=== PATIENT | female | born 1980 | race Caucasian/White ===

== ENCOUNTER 2024-08-20 15:25 | Observation (INO) | payer BC, SELFPAY ==
[2024-08-20] VITALS (10 sets, daily range): BP systolic 136–164; BP diastolic 86–96; PULSE 80–95; TEMP 36.6–36.8; O2SAT 92–98; BMI 36.0; BMI 34.5
--- NOTE | 2024-08-20 15:36 | ECG_ITS ---
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 Measurements Intervals [place] Rate: 92 P: 90 MN: 118 QRS: 84 QRSD: 100 T: 205 QT: 326 QTc: 375 Interpretive Statements 1100 Sinus rhythm 2210 Short MN interval [address] depression, possible subendocardial injury Twave abnormality, possible ischemia 9150 abnormal ECG Compared to ECG 07/08/2018 16:39:50 Short MN interval now present Right-axis deviation no longer present ST (T wave) deviation still present Electronically Signed On 08-21-2024 5:24:31 EDT by JANELLE BUTLER M.D.
--- NOTE | 2024-08-20 15:37 | ED.GENADUL1 ---
HPI HPI - General Adult General Chief complaint: Syncope Stated complaint: SYNCOPE Time Seen by Provider: 08/20/24 15:29 Source: patient Mode of arrival: ambulance Limitations: no limitations History of Present Illness HPI narrative: 44-year-old female presents because of a near syncopal episode. She was at work when this happened and it occurred when she went to stand up. She felt dizzy and lightheaded and everything went fuzzy but she did not pass out completely. No injury. She has not been feeling well since this morning, she has had a mild cough and a sore throat. Her daughter has been ill but was evaluated and was told she had a viral illness. She does not complain of fever or diarrhea. Related Data Home Medications ?Medication ?Instructions ?Recorded ?Confirmed metformin 500 mg tablet 500 mg PO DAILY 08/20/24 08/20/24 thyroid (pork) 90 mg tablet 90 mg PO DAILY 08/20/24 08/20/24 Allergies Allergy/AdvReac Type Severity Reaction Status Date / Time No Known Drug Allergies Allergy Verified 08/20/24 15:27 Opioid HPI Opioid Management Most Recent Opioid Data: No Data to Display Review of Systems ROS Narrative A ten point review of systems is negative except as noted above. Exam Narrative Exam Narrative: Nurses note and vital signs reviewed and patient is not hypoxic. General: The patient appears in no apparent distress. Patient is resting comfortably on cart. Skin: Warm, dry, no pallor noted. There is no rash noted. Head: Normocephalic, atraumatic Eye: Normal conjunctiva, no drainage Ears, Nose, Mouth, and Throat: oral mucosa is moist. Nares patent. Cardiovascular: Regular Rate and Rhythm Respiratory: Patient is in no distress, no accessory muscle use, lungs are clear to auscultation, no wheezing, rales or rhonchi Back: non-tender GI: Soft and nontender Musculoskeletal: The patient has no evidence of calf tenderness, no pitting edema, symmetrical pulses noted bilaterally Neurological: A&O, normal speech Psychiatric: Cooperative Constitutional Vital Signs, click to edit/add: Last Vital Signs Temp 98.2 F 08/20/24 15:27 Pulse 88 08/20/24 16:21 Resp 18 08/20/24 16:21 BP 164/87 H 08/20/24 18:28 Pulse Ox 97 08/20/24 18:28 O2 Del Method Room Air 08/20/24 15:27 Course Vital Signs Vital signs: Vital Signs Temperature 98.2 F 08/20/24 15:27 Pulse Rate 92 H 08/20/24 15:27 Respiratory Rate 18 08/20/24 15:27 Blood Pressure 160/96 H 08/20/24 15:27 Pulse Oximetry 96 08/20/24 15:27 Oxygen Delivery Method Room Air 08/20/24 15:27 Temperature 98.2 F 08/20/24 15:27 Pulse Rate 88 08/20/24 16:21 Respiratory Rate 18 08/20/24 16:21 Blood Pressure 164/87 H 08/20/24 18:28 Pulse Oximetry 97 08/20/24 18:28 Oxygen Delivery Method Room Air 08/20/24 15:27 Medical Decision Making MDM Narrative Medical decision making narrative: The patient has normal renal function and an initial troponin of 91. Repeat 1 hour later was 92. Case discussed with Dr. Benito and CT of the chest is negative for pulmonary embolism. Dr. Benito recommends further troponins and cardiac echo tomorrow. Treatment diagnosis and disposition were discussed with the patient. Differential Diagnosis Differential Diagnosis: Near-syncope, syncope, cardiac dysrhythmia, pulmonary embolism Lab Data Lab results reviewed: Yes I reviewed the patient's lab results Labs: Lab Results 08/20/24 08/20/24 08/20/24 Range/Units 15:43 15:45 16:47 WBC 14.2 H (4.0-11.0) 10^3/uL RBC 3.74 L (4.20-5.40) 10^6/uL Hgb 9.1 L (12.0-16.0) g/dL Hct 29.9 L (36.0-48.0) % MCV 79.9 L (81.0-99.0) fL MCH 24.3 L (26.7-34.0) pg MCHC 30.4 (29.9-35.2) g/dL RDW 16.4 H (11.0-15.0) % Plt Count 292 (150-450) 10^3/uL MPV 9.8 (9.5-13.5) fL Neut % (Auto) 88.3 H (43.0-75.0) % Lymph % (Auto) 5.0 L (20.5-60.0) % [place] % (Auto) 5.8 (1.7-12.0) % Eos % (Auto) 0.4 L (0.9-7.0) % Baso % (Auto) 0.1 L (0.2-2.0) % Neut # (Auto) 12.5 H (1.4-6.5) 10^3/uL Lymph # (Auto) 0.7 L (1.2-3.8) 10^3/uL [place] # (Auto) 0.8 (0.3-0.8) 10^3/uL Eos # (Auto) 0.1 (0.0-0.7) 10^3/uL Baso # (Auto) 0.0 (0.0-0.1) 10^3/uL Abs Immat Gran (auto) 0.06 H (0.00-0.03) 10^3/uL Imm/Tot Granulo (auto) 0.4 (0.0-0.5) % Sodium 131 L (136-145) mmol/L Potassium 3.5 (3.5-5.1) mmol/L Chloride 98 (98-107) mmol/L Carbon Dioxide 24.9 (21.0-32.0) mmol/L Anion Gap 11.6 BUN 7.0 (7.0-18.0) mg/dL Creatinine 0.76 (0.55-1.02) mg/dL Est GFR ( Amer) >60 (>=60 mL/min/1.73m^2) Est GFR (Non-Af Amer) >60 (>=60 mL/min/1.73m^2) BUN/Creatinine Ratio 9.2 Glucose 139 H (74-106) mg/dL Calcium 8.7 (8.5-10.1) mg/dL Troponin I High Sens 91.8 H* 92.8 H* (4.0-51.3) pg/mL Influenza Type A Ag Negative Influenza Type B Ag Negative SARS-CoV-2 Ag (CV2AG) Negative (NEGATIVE) Streptococcus Screen Negative Imaging Data CT scan - chest: Radiologist's impression: CTA chest: No evidence of acute PE, no evidence of thoracic aortic aneurysm or dissection ECG Data Attestation: I personally reviewed and interpreted this ECG as follows: (EKG on my interpretation shows normal sinus rhythm with a rate of 118, minimal ST segment depression laterally) Discharge Plan Discharge Chief Complaint: Syncope Clinical Impression: Near syncope, Elevated troponin Patient Disposition: Admitted as Observation Time of Disposition Decision: 18:31 Condition: Good
[2024-08-20] MEDS: 0.9 % SODIUM CHLORIDE 1,000 ML 1000 ML IV (15:48)
[2024-08-20 15:51] LABS: Basophils Percent Auto 0.1 % (0.2-2.0); Eosinophils Absolute Auto 0.1 10^3/uL (0.0-0.7); Eosinophils Percent Auto 0.4 % (0.9-7.0); Hematocrit 29.9 % (36.0-48.0); Hemoglobin 9.1 g/dL (12.0-16.0); Immature Granulocytes Abs Auto 0.06 10^3/uL (0.00-0.03); Immature Granulocytes Pct Auto 0.4 % (0.0-0.5); Lymphocytes Absolute Auto 0.7 10^3/uL (1.2-3.8); Mean Corpuscular HGB Conc 30.4 g/dL (29.9-35.2); Mean Corpuscular Hemoglobin 24.3 pg (26.7-34.0); Mean Corpuscular Volume 79.9 fL (81.0-99.0); Mean Platelet Volume 9.8 fL (9.5-13.5); Monocytes Absolute Auto 0.8 10^3/uL (0.3-0.8); Monocytes Percent Auto 5.8 % (1.7-12.0); Neutrophils Absolute Auto 12.5 10^3/uL (1.4-6.5); Neutrophils Percent Auto 88.3 % (43.0-75.0); Platelet Count 292 10^3/uL (150-450); Red Blood Count 3.74 10^6/uL (4.20-5.40); Red Cell Distribution Width 16.4 % (11.0-15.0); White Blood Count 14.2 10^3/uL (4.0-11.0)
[2024-08-20 16:03] LABS: Influenza Virus A Antigen Negative; Influenza Virus B Antigen Negative; Internal Control Within Normal Limits; SARS-CoV-2 Ag NEGATIVE (NEGATIVE); Strep A Antigen Screen Negative
[2024-08-20 16:04] LABS: Anion Gap 11.6; BUN Creatinine Ratio 9.2; Calcium 8.7 mg/dL (8.5-10.1); Carbon Dioxide 24.9 mmol/L (21.0-32.0); Chloride 98 mmol/L (98-107); Estimated GFR (African America >60 (>=60 mL/min/1.73m^2); Estimated GFR (Non-African Ame >60 (>=60 mL/min/1.73m^2); Glucose 139 mg/dL (74-106); Potassium 3.5 mmol/L (3.5-5.1); Sodium 131 mmol/L (136-145)
[2024-08-20 16:17] LABS: Troponin I High Sensitivity 91.8 pg/mL (4.0-51.3)
[2024-08-20 17:31] LABS: Troponin I High Sensitivity 92.8 pg/mL (4.0-51.3)
--- NOTE | 2024-08-20 19:30 | ECG_ITS ---
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 Measurements Intervals [place] Rate: 85 P: 83 [place]: 104 QRS: 79 QRSD: 106 T: 120 QT: 356 QTc: 424 Interpretive Statements SINUS RHYTHM WITH SHORT [place] INTERVAL POSSIBLE RIGHT VENTRICULAR CONDUCTION DELAY [RSR (QR) IN V1/V2] SEPTAL MYOCARDIAL INFARCTION [40+ ms Q WAVE IN V1/V2], OF INDETERMINATE AGE ST DEVIATION AND MODERATE T-WAVE ABNORMALITY, CONSIDER ANTERIOR ISCHEMIA [-0.1+ mV T WAVE IN V3/V4] Compared to ECG 08/20/2024 15:31:24 Possible ischemia still present Electronically Signed On 08-21-2024 5:29:38 EDT by JANELLE BUTLER M.D.
[2024-08-20 20:09] LABS: Troponin I High Sensitivity 78.4 pg/mL (4.0-51.3)
[2024-08-20] MEDS: ENOXAPARIN SODIUM 40 MG/0.4 ML SYRINGE SUBQ (20:09)
[2024-08-21] VITALS (16 sets, daily range): BP systolic 114–164; BP diastolic 73–82; PULSE 74–99; TEMP 36.6–36.8; O2SAT 92–95
[2024-08-21 06:17] LABS: Basophils Percent Auto 0.3 % (0.2-2.0); Eosinophils Percent Auto 0.1 % (0.9-7.0); Hematocrit 30.7 % (36.0-48.0); Immature Granulocytes Abs Auto 0.04 10^3/uL (0.00-0.03); Immature Granulocytes Pct Auto 0.4 % (0.0-0.5); Lymphocytes Absolute Auto 1.5 10^3/uL (1.2-3.8); Lymphocytes Percent Auto 13.4 % (20.5-60.0); Mean Corpuscular HGB Conc 29.3 g/dL (29.9-35.2); Mean Corpuscular Hemoglobin 23.7 pg (26.7-34.0); Mean Platelet Volume 10.3 fL (9.5-13.5); Monocytes Absolute Auto 0.9 10^3/uL (0.3-0.8); Monocytes Percent Auto 8.3 % (1.7-12.0); Neutrophils Absolute Auto 8.7 10^3/uL (1.4-6.5); Neutrophils Percent Auto 77.5 % (43.0-75.0); Platelet Count 286 10^3/uL (150-450); Red Blood Count 3.79 10^6/uL (4.20-5.40); Red Cell Distribution Width 16.5 % (11.0-15.0); White Blood Count 11.2 10^3/uL (4.0-11.0)
[2024-08-21 06:44] LABS: Alanine Aminotransferase 14 U/L (14-59); Albumin Level 3.6 g/dL (3.4-5.0); Alkaline Phosphatase 96 U/L (46-116); Aspartate Amino Transferase 11 U/L (15-37); BUN Creatinine Ratio 9.2; Bilirubin Total 0.5 mg/dL (0.2-1.0); Calcium 8.4 mg/dL (8.5-10.1); Carbon Dioxide 27.3 mmol/L (21.0-32.0); Chloride 102 mmol/L (98-107); Estimated GFR (African America >60 (>=60 mL/min/1.73m^2); Estimated GFR (Non-African Ame >60 (>=60 mL/min/1.73m^2); Globulin 3.5 g/dL; Glucose 99 mg/dL (74-106); Magnesium 1.6 mg/dL (1.8-2.4); Potassium 3.3 mmol/L (3.5-5.1); Sodium 136 mmol/L (136-145); Total Protein 7.1 g/dL (6.4-8.2)
[2024-08-21 06:48] LABS: Troponin I High Sensitivity 77.6 pg/mL (4.0-51.3)
[2024-08-21 08:04] LABS: Glucometer 108 mg/dL (74-106)
--- NOTE | 2024-08-21 08:12 | CA_ITS ---
Patient Name: ADRY CALDERON MR#: [id number] : 1980 Exam Date: 08/21/2024 Ordering Doctor: ADRY VAZQUEZ . ECHOCARDIOGRAM REPORT PROCEDURE: CA ECHO DOPPLER COMPLETE INDICATIONS: presyncope, NSTEMI COMPARISON: None. DESCRIPTION: COMPLETE ECHOCARDIOGRAM Real-time transthoracic echocardiography with 2D, M-mode, spectral and color flow Doppler performed. QUALITY: Technically difficult study due to patients condition. LEFT VENTRICLE: Normal chamber size. Normal left ventricular wall thickness. Systolic function is normal. Segmental wall motion cannot be accurately assessed due to poor sound transmission. LV EF: Visual estimation of left ventricular ejection fraction is 55-60%. Normal left ventricular ejection fraction, (>55%). DIASTOLIC: ATRIAL SEPTUM: LEFT ATRIUM: Poorly visualized. RIGHT ATRIUM: Poorly visualized. RIGHT VENTRICLE: Normal chamber size. Normal systolic function. TRICUSPID VALVE: Not well visualized. no regurgitation. Unable to assess right-sided pressures due to lack of measurable tricuspid regurgitation. MITRAL VALVE: Normal mobility and thickness. No evidence of mitral valve stenosis. No mitral regurgitation. AORTIC VALVE: Not well visualized. No evidence of aortic valve stenosis. No aortic regurgitation. AORTIC ROOT: Normal diameter and appearance. PULMONIC VALVE: Not well visualized. No regurgitation. PERICARDIUM: No evidence of pericardial effusion. IVC: Within normal limits. PLEURA: CONCLUSION: 1. Technically difficult study due to poor sound transmission. 2. Normal left ventricular size and systolic function. LVEF is estimated at 55 to 60%. Segmental wall motion cannot be accurately assessed due to sound transmission. 3. Normal right ventricular size and systolic function. 4. No significant valvular dysfunction. 5. Unable to assess right-sided pressures due to lack of measurable tricuspid regurgitation. 6. No pericardial effusion. Adult Echocardiography Procedure Report Left Ventricle LVEDD (3.7 - 5.6 cm): 4.17 cm LVESD (2.2 - 4.0 cm): 2.72 cm LVIVS thickness (0.6 - 1.2 cm): 0.78 cm LVPW thickness (0.5 - 1.0 cm): 1.05 cm e': 0.12 m/s E - e': 5.37 LVOT Max Gradient: 1.96 mm[Hg] LVOT Area (cm2): 0.70 m/s Peak Velocity (LVOT): 0.70 m/s LVOT Diameter 2.22 cm Left Atrium Left Atrium Systolic Dimension: 2.49 cm Mitral Valve MV E to A Ratio: 1.50 Mitral Valve A-Wave Peak Velocity: 0.41 m/s Mitral Valve E-Wave Peak Velocity: 0.62 m/s Right Ventricle Aorta AO Root Diam: 3.28 cm Aortic Valve AoV Area (Peak Calvin): 3.20 cm2, 3.20 cm2 Peak Velocity(Antegrade Flow): 0.85 m/s Peak Gradient(Antegrade Flow): 2.89 mm[Hg] Tricuspid Valve Pulmonic Valve Mean Gradient: 1.42 mm[Hg] Mean Velocity: 0.54 m/s Peak Velocity: 1.00 m/s, 0.93 m/s Peak Gradient: 3.43 mm[Hg], 4.03 mm[Hg] Right Atrium Dictated by: Ronny Perez M.D. on 08/22/2024 at 18:20 Approved by: Ronny Perez M.D. on 08/22/2024 at 18:24
--- NOTE | 2024-08-21 08:18 | PM.HP ---
HPI H&P: HPI History of Present Illness Chief complaint: NEAR DYNCOPE ELEVATED TROP Narrative: Patient is a 44 y.o white female with past medical history of former smoker, Cerebral Palsy affecting right side of face and left hand, Hypothyroidism, Marlow Parkinson's White Syndrome, SVT with prior cardiac ablation about 12 years ago who presented to the ER last night after having a feeling like she was going to passing out at work. She felt dizzy when she went to stand up. She felt dizzy and lightheaded and everything went fuzzy but she did not pass out completely. No injury. She has not been feeling well since yesterday, she has had a mild cough and a sore throat, fever, bodyaches, sinus drainage, no chest pain, no shortness of breath. Her daughter has been ill but was evaluated and was told she had a viral illness. She does not complain of fever or diarrhea. Patient's Troponin was found to be elevated at 91, then 92. CTA of the chest was negative for PE. Covid and flu testing were negative. WBC's 14, hb 9.0, K 3.3, mag 1.6, Cr 0.65; BP was elevated 160's / 90's, 97% on room air, highest recorded heart rate was 99. ER doctor spoke with [facility] development representative who requested patient be admitted for further testing. troponin has trended 78 and 77. ProBNP 484. Hb 9.0 and patient just finished her menstrual cycle. She currently denies any chest pain. She seen a development representative at [facility] years ago when she had her ablation but nothing recent. Her mother had TN at the age of 40 with 1 stent. Patient has had no prior heart caths, no stress tests. Opioid HPI Opioid Management Most Recent Pain and Opioid Data: Last Pain Scale 0 08/21/24 11:28 08/21/24 Last Pain Assessment 08/21/24 12:05 Last MAR Pain Assessment 08/21/24 11:28 Last ORT Total Score 6 08/20/24 18:57 08/20/24 Last ORT Risk Category Moderate Risk 08/20/24 18:57 08/20/24 Ur Phencyclidine Scrn Negative (NEGATIVE) 08/21/24 09:05 08/21/24 Review of Systems ROS Narrative ROS: a complete review of systems were reviewed with patient and are positive as below or listed in History of Chief Complaint. General: no fever, chills, night sweats Head: no headache, trauma, visual changes, nausea or vomiting Skin: no reported rashes, itching or sores Eyes: no blurriness of vision Ears: no reported hearing loss, vertigo, earache, or tinnitus Throat: sore throat, hoarseness, swelling of neck Heart: no chest pain Lungs: no shortness of breath but mild cough GI: no diarrhea or vomiting/nausea Urinary: no urinary urgency, frequency or pain Neuro: no numbness or tingling HEM: no bleeding issues or bruising ENDO: thyroid problems Psych: no anxiety or depression PFSH [facility] Medical History (Updated 08/21/24 @ 12:54 by Elizabeth Brambila DO) Palsy ?G83.9 - Paralytic syndrome, unspecified (ICD-10) 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, unspecified (ICD-10) History of kidney stones ?Z87.442 - Personal history of urinary calculi (ICD-10) Hypothyroid ?E03.9 - Hypothyroidism, unspecified (ICD-10) History of paroxysmal supraventricular tachycardia ?Z86.79 - Personal history of other diseases of the circulatory system (ICD-10) Jqzgp-Nxpnkkvej-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) Surgical History H/O hernia repair ?Z98.890 - Other specified postprocedural states (ICD-10) ?Z87.19 - Personal history of other diseases of the digestive system (ICD-10) History of ?Z98.891 - History of uterine scar from previous surgery (ICD-10) History of cardiac radiofrequency ablation ?Z98.890 - Other specified postprocedural states (ICD-10) Family History Father Family history of cancer Mother Family history of CHF (congestive heart failure) Family history of hypertension Grandmother Family history of CHF (congestive heart failure) Social History Within the past year, how often did you have a drink containing alcohol: never Score interpretation: A score less than 3 is consistent with normal alcohol consumption. Smoking status: Former smoker Non-prescribed substance use: denies use Highest level of school completed/degree received: some college, no degree Little interest or pleasure in doing things: not at all Feeling down, depressed, or hopeless: not at all Meds Home Medications and Allergies Home Medications ?Medication ?Instructions ?Recorded ?Confirmed ?Type metformin 500 mg tablet 500 mg PO DAILY 08/20/24 08/20/24 History thyroid (pork) 90 mg tablet 90 mg PO DAILY 08/20/24 08/20/24 History Allergies Allergy/AdvReac Type Severity Reaction Status Date / Time No Known Drug Allergies Allergy Verified 08/20/24 15:27 Exam Narrative Exam Narrative: General: Patient is alert, and oriented to person, place and time with normal affect, proper hygiene, right facial paralysis and left hand paralysis Skin: no visible rashes, or ulcers Head: atraumatic, acephalic Eyes: PERRLA, no nystagmus present, conjunctiva clear, no scleral icterus Ears: normal gross auditory acuity Neck: no masses palpated, normal thyroid, no JVD or audible carotid bruits Heart: Normal rate and rhythm, no murmurs/rubs/gallops Lungs: no audible wheezes, crackles and normal breath sounds all lung gonzalez Abdomen: Normal audible bowel sounds, no distension, No palpable masses, no organomegaly, no rebound/guarding/ or rigidity Musculoskeletal: no swelling bilateral lower extremities Constitutional Vital Signs, click to edit/add: Last Vital Signs Temp 98.2 F 08/21/24 04:00 Pulse 90 08/21/24 08:00 Resp 16 08/21/24 04:00 BP 151/82 H 08/21/24 04:00 Pulse Ox 94 L 08/21/24 06:05 O2 Del Method Room Air 08/21/24 06:05 Results Labs Labs: Short CBC 08/20/24 08/21/24 Range/Units 15:45 05:38 WBC 14.2 H 11.2 H (4.0-11.0) 10^3/uL Hgb 9.1 L 9.0 L (12.0-16.0) g/dL Hct 29.9 L 30.7 L (36.0-48.0) % Plt Count 292 286 (150-450) 10^3/uL BMP 08/20/24 08/21/24 15:45 05:38 Sodium 131 L 136 Potassium 3.5 3.3 L Chloride 98 102 Carbon Dioxide 24.9 27.3 BUN 7.0 6.0 L Creatinine 0.76 0.65 Glucose 139 H 99 Calcium 8.7 8.4 L Liver Function 08/21/24 Range/Units 05:38 Total Bilirubin 0.5 (0.2-1.0) mg/dL AST 11 L (15-37) U/L ALT 14 (14-59) U/L Alkaline Phosphatase 96 (46-116) U/L Albumin 3.6 (3.4-5.0) g/dL Assessment and Plan Assessment and Plan (1) Near syncope: Assessment and Plan: Will need event monitor at discharge. Will check ECHO, slightly low TSH, she has been on telemetry and no noted events overnight. Mag slightly low 1.6. Carotid ultrasounds showed some swollen lymph nodes but no evidence of stenosis. Will also get cardiology consult. (2) NSTEMI (non-ST elevated myocardial infarction): Assessment and Plan: elevated trop of 91 is trending down 77. Patient given aspirin. Getting Echo today. start coreg 3.125mg BID. Does have prior heart history and family history. Cards consult. CTA of the chest negative for PE. from elevated BP? (3) Hypothyroid: Assessment and Plan: continue thyroid medication Qualifiers: Hypothyroidism type: acquired Qualified Code(s): E03.9 - Hypothyroidism, unspecified (4) History of paroxysmal supraventricular tachycardia: Assessment and Plan: monitor, event monitor at discharge. (5) Tveyf-Emsmjgzyj-Usyha (WPW) syndrome: Assessment and Plan: replaced magnesium today (6) History of cardiac radiofrequency ablation: (7) Elevated blood pressure reading: Assessment and Plan: start coreg (8) URI (upper respiratory infection): Assessment and Plan: no evidence of pneumonia, flu and covid negative. Treat symptoms. Qualifiers: URI type: unspecified viral URI Qualified Code(s): J06.9 - Acute upper respiratory infection, unspecified Plan patient is a full code continue to trend troponin, echo and cards consult. Patient will need 1-2 more days of as necessary hospital care for further work up.
[2024-08-21 08:38] LABS: Estimated Average Glucose 108 mg/dL; Glycohemoglobin A1C 5.4 % (4.5-6.2)
[2024-08-21 08:41] LABS: Chol HDL Ratio 3.6; Cholesterol 165 mg/dL (<=200); HDL Cholesterol 46 mg/dL (40-60); LDL Cholesterol Calculated 105.6 mg/dL; TSH W/ REFLEX FT4 0.241 uIU/mL (0.358-3.740); Triglycerides 67 mg/dL (<=150); VLDL CHOLESTEROL 13.4 mg/dL
[2024-08-21 09:00] LABS: Free T4 0.81 ng/dL (0.76-1.46)
[2024-08-21] MEDS: MAGNESIUM SULFATE IN WATER 2 GM/50 ML PREMIX IV (09:16)
[2024-08-21] MEDS: POTASSIUM CHLORIDE 10 MEQ ER TABLET 20 MEQ PO (09:17)
[2024-08-21] MEDS: ASPIRIN 325 MG TABLET.DR PO (09:17)
[2024-08-21] MEDS: THYROID,PORK 30 MG TABLET 90 MG PO (09:17)
[2024-08-21] MEDS: ENOXAPARIN SODIUM 40 MG/0.4 ML SYRINGE SUBQ (09:17)
[2024-08-21] MEDS: ACETAMINOPHEN 325 MG TABLET 650 MG PO (09:26)
[2024-08-21 09:38] LABS: HCG Qualitative Urine* NEGATIVE (NEGATIVE); Internal Control Within Normal Limits
[2024-08-21 09:52] LABS: Amphetamine Screen Urine NEGATIVE (NEGATIVE); Barbiturates Screen Urine NEGATIVE (NEGATIVE); Benzodiazepines Screen Urine NEGATIVE (NEGATIVE); Buprenorphine Screen Urine NEGATIVE (NEGATIVE); Cannabinoid Screen Urine NEGATIVE (NEGATIVE); Cocaine Screen Urine NEGATIVE (NEGATIVE); Methadone Screen Urine NEGATIVE (NEGATIVE); Methamphetamines Screen Urine NEGATIVE (NEGATIVE); Opiate Screen Urine NEGATIVE (NEGATIVE); Oxycodone Screen Urine NEGATIVE (NEGATIVE); Phencyclidine Screen Urine NEGATIVE (NEGATIVE); Tricyclic Antidepressant Urine NEGATIVE (NEGATIVE)
[2024-08-21] MEDS: CARVEDILOL 3.125 MG TABLET PO (10:13)
--- NOTE | 2024-08-21 10:30 | CM.NOTE ---
Rounds made with Dr. Brambila, no discharge today. Pt continues with episodes of tachycardia. Cardiology will consult on pt for further recommendations. Pt will have echo.
[2024-08-21 11:38] LABS: Glucometer 113 mg/dL (74-106)
--- NOTE | 2024-08-21 15:40 | PM.DS1 ---
DS: Providers Provider Date of admission: 08/20/24 18:51 Primary care physician: YANELIS WADDELL Attending physician on admission: Elizabeth Brambila Consults: 08/21/24 08:13 Consult to Cardiology Routine Reason for consultation: presyncope and NSTEMI Has provider been notified: No Discharging clinician: Elizabeth Brambila DS: Diagnosis Discharge Diagnosis (1) Near syncope: (2) NSTEMI (non-ST elevated myocardial infarction): (3) Hypothyroid: Qualifiers: Hypothyroidism type: acquired Qualified Code(s): E03.9 - Hypothyroidism, unspecified (4) History of paroxysmal supraventricular tachycardia: (5) Miois-Bwuwdxhed-Gvbaw (WPW) syndrome: (6) History of cardiac radiofrequency ablation: (7) Elevated blood pressure reading: (8) URI (upper respiratory infection): Qualifiers: URI type: unspecified viral URI Qualified Code(s): J06.9 - Acute upper respiratory infection, unspecified DS: Summary Hospital Course Hospital Course: Patient is a 44 y.o white female with past medical history of former smoker, Cerebral Palsy affecting right side of face and left hand, Hypothyroidism, Marlow Parkinson's White Syndrome, SVT with prior cardiac ablation about 12 years ago who presented to the ER last night after having a feeling like she was going to passing out at work. She felt dizzy when she went to stand up. She felt dizzy and lightheaded and everything went fuzzy but she did not pass out completely. No injury. She has not been feeling well since yesterday, she has had a mild cough and a sore throat, fever, bodyaches, sinus drainage, no chest pain, no shortness of breath. Her daughter has been ill but was evaluated and was told she had a viral illness. She does not complain of fever or diarrhea. Patient's Troponin was found to be elevated at 91, then 92. CTA of the chest was negative for PE. Covid and flu testing were negative. WBC's 14, hb 9.0, K 3.3, mag 1.6, Cr 0.65; BP was elevated 160's / 90's, 97% on room air, highest recorded heart rate was 99. ER doctor spoke with [facility] water resources program director who requested patient be admitted for further testing. troponin has trended 78 and 77 now 71. ProBNP 484. Hb 9.0 and patient just finished her menstrual cycle. She currently denies any chest pain. She seen a water resources program director at [facility] years ago when she had her ablation but nothing recent. Her mother had CO at the age of 40 with 1 stent. Patient has had no prior heart caths, no stress tests. At the time of discharge she has had no further episodes of chest pain. No events on Telemetry. I have spoke with VENITA Enamorado for cardiology and he agrees that Troponin can most likely be related to acute viral illness, dehydration and it's trending down; He also personally reviewed Echo that had normal EF but visualization was limited. U/S carotids was negative for stenosis, had some enlarged lymph nodes which i discussed with patient that are reactive given her URI. I will treat her HBP with coreg 3.125 BID, a 30 day event monitor was placed prior to discharge. She has close follow up with [facility] EP clinic. She may return to the ER with any worsenging signs or symptoms. Status at Discharge Functional status at discharge: independent ambulation Overall status at discharge: patient is back to baseline Time Spent with Patient Time attestation: Total time spent providing and/or coordinating discharge services: Time spent: greater than 30 minutes Exam Narrative Exam Narrative: no changes on discharge exam from H&P dated 08/21/24 Constitutional Vital Signs, click to edit/add: Last Vital Signs Temp 98.1 F 08/21/24 15:24 Pulse 79 08/21/24 15:24 Resp 20 08/21/24 15:24 BP 114/73 08/21/24 15:24 Pulse Ox 93 L 08/21/24 15:24 O2 Del Method Room Air 08/21/24 15:24 DS: Data Data Completed and Pending Labs on day of discharge: Labs from last 24 hours 08/21/24 08/21/24 08/21/24 13:02 11:37 09:05 WBC RBC Hgb Hct MCV MCH MCHC RDW Plt Count MPV Neut % (Auto) Lymph % (Auto) Lucas % (Auto) Eos % (Auto) Baso % (Auto) Neut # (Auto) Lymph # (Auto) Lucas # (Auto) Eos # (Auto) Baso # (Auto) Abs Immat Gran (auto) Imm/Tot Granulo (auto) Sodium Potassium Chloride Carbon Dioxide Anion Gap BUN Creatinine Est GFR ( Amer) Est GFR (Non-Af Amer) BUN/Creatinine Ratio Glucose Estimat Average Glucose Hemoglobin A1c Calcium Magnesium Total Bilirubin AST ALT Alkaline Phosphatase Troponin I High Sens 71.0 H* NT-Pro-B Natriuret Pep Total Protein Albumin Globulin Albumin/Globulin Ratio Triglycerides Cholesterol LDL Cholesterol, Calc VLDL Cholesterol HDL Cholesterol Cholesterol/HDL Ratio Free T4 TSH & Free T4 Interp Urine HCG, Qual Negative Urine Opiates Screen Negative Ur Buprenorphine Scrn Negative Ur Oxycodone Screen Negative Urine Methadone Screen Negative Ur Barbiturates Screen Negative U Tricyclic Antidepress Negative Ur Phencyclidine Scrn Negative Ur Amphetamines Screen Negative U Methamphetamines Scrn Negative U Benzodiazepines Scrn Negative Urine Cocaine Screen Negative U Cannabinoids Screen Negative Influenza Type A Ag Influenza Type B Ag SARS-CoV-2 Ag (CV2AG) Streptococcus Screen POC Glucose 113 H 08/21/24 08/21/24 08/20/24 08:00 05:38 19:44 WBC 11.2 H RBC 3.79 L Hgb 9.0 L Hct 30.7 L MCV 81.0 MCH 23.7 L MCHC 29.3 L RDW 16.5 H Plt Count 286 MPV 10.3 Neut % (Auto) 77.5 H Lymph % (Auto) 13.4 L Lucas % (Auto) 8.3 Eos % (Auto) 0.1 L Baso % (Auto) 0.3 Neut # (Auto) 8.7 H Lymph # (Auto) 1.5 Lucas # (Auto) 0.9 H Eos # (Auto) 0.0 Baso # (Auto) 0.0 Abs Immat Gran (auto) 0.04 H Imm/Tot Granulo (auto) 0.4 Sodium 136 Potassium 3.3 L Chloride 102 Carbon Dioxide 27.3 Anion Gap 10.0 BUN 6.0 L Creatinine 0.65 Est GFR ( Amer) >60 Est GFR (Non-Af Amer) >60 BUN/Creatinine Ratio 9.2 Glucose 99 Estimat Average Glucose 108 Hemoglobin A1c 5.4 Calcium 8.4 L Magnesium 1.6 L Total Bilirubin 0.5 AST 11 L ALT 14 Alkaline Phosphatase 96 Troponin I High Sens 77.6 H* 78.4 H* NT-Pro-B Natriuret Pep 484.0 H Total Protein 7.1 Albumin 3.6 Globulin 3.5 Albumin/Globulin Ratio 1.0 Triglycerides 67 Cholesterol 165 LDL Cholesterol, Calc 105.6 VLDL Cholesterol 13.4 HDL Cholesterol 46 Cholesterol/HDL Ratio 3.6 Free T4 0.81 TSH & Free T4 Interp 0.241 L Urine HCG, Qual Urine Opiates Screen Ur Buprenorphine Scrn Ur Oxycodone Screen Urine Methadone Screen Ur Barbiturates Screen U Tricyclic Antidepress Ur Phencyclidine Scrn Ur Amphetamines Screen U Methamphetamines Scrn U Benzodiazepines Scrn Urine Cocaine Screen U Cannabinoids Screen Influenza Type A Ag Influenza Type B Ag SARS-CoV-2 Ag (CV2AG) Streptococcus Screen POC Glucose 108 H 08/20/24 08/20/24 08/20/24 16:47 15:45 15:43 WBC 14.2 H RBC 3.74 L Hgb 9.1 L Hct 29.9 L MCV 79.9 L MCH 24.3 L MCHC 30.4 RDW 16.4 H Plt Count 292 MPV 9.8 Neut % (Auto) 88.3 H Lymph % (Auto) 5.0 L Lucas % (Auto) 5.8 Eos % (Auto) 0.4 L Baso % (Auto) 0.1 L Neut # (Auto) 12.5 H Lymph # (Auto) 0.7 L Lucas # (Auto) 0.8 Eos # (Auto) 0.1 Baso # (Auto) 0.0 Abs Immat Gran (auto) 0.06 H Imm/Tot Granulo (auto) 0.4 Sodium 131 L Potassium 3.5 Chloride 98 Carbon Dioxide 24.9 Anion Gap 11.6 BUN 7.0 Creatinine 0.76 Est GFR ( Amer) >60 Est GFR (Non-Af Amer) >60 BUN/Creatinine Ratio 9.2 Glucose 139 H Estimat Average Glucose Hemoglobin A1c Calcium 8.7 Magnesium Total Bilirubin AST ALT Alkaline Phosphatase Troponin I High Sens 92.8 H* 91.8 H* NT-Pro-B Natriuret Pep Total Protein Albumin Globulin Albumin/Globulin Ratio Triglycerides Cholesterol LDL Cholesterol, Calc VLDL Cholesterol HDL Cholesterol Cholesterol/HDL Ratio Free T4 TSH & Free T4 Interp Urine HCG, Qual Urine Opiates Screen Ur Buprenorphine Scrn Ur Oxycodone Screen Urine Methadone Screen Ur Barbiturates Screen U Tricyclic Antidepress Ur Phencyclidine Scrn Ur Amphetamines Screen U Methamphetamines Scrn U Benzodiazepines Scrn Urine Cocaine Screen U Cannabinoids Screen Influenza Type A Ag Negative Influenza Type B Ag Negative SARS-CoV-2 Ag (CV2AG) Negative Streptococcus Screen Negative POC Glucose Discharge Plan Discharge Disposition: Home, Self-Care Condition: Good Discharge Medications: New carvedilol 3.125 mg Tablet 3.125 mg PO BID 30 Days Qty: 60 0RF Continued metformin 500 mg tablet 500 mg PO DAILY thyroid (pork) 90 mg tablet 90 mg PO DAILY Activity: increase activity as tolerated Diet: advance to your usual diet Print Language: Cameroonian Patient Instructions: Syncope (DC), Holter Monitor (GEN) Forms: Portal Instructions Follow Up Appointments: Follow up with EP clinic DR Amado October 13, 2:30pm [facility] Cardiology [facility] Call Saturday to follow up with PCP in one week [phone] Patient left with 30 day Event monitor
--- NOTE | 2024-08-21 17:10 | PM.CACN ---
History of Present Illness History of Present Illness Consult date: 08/21/24 Requesting physician: Elizabeth Brambila Chief complaint: NEAR DYNCOPE ELEVATED TROP Review of Systems ROS Narrative Elizabeth Hayden is a 44-year-old female with a history of Csuln-Nuipubmjy-Jimlw syndrome (status post ablation in 2008), paroxysmal SVT, and hypothyroidism who presented after experiencing a near-syncopal episode at work. She reported sudden dizziness and a sensation of nearly passing out while standing, which occurred after not eating that day. She did not lose consciousness and denied chest pain, palpitations, or trauma. She did endorse mild cold-like symptoms at the time and noted that a relative had recently been ill with a viral infection. On further discussion, she reported that the symptoms she experienced during this episode were different from those that led to her SVT diagnosis and ablation in 2008. Initial ED workup revealed an elevated high-sensitivity troponin peaking at 92.8 pg/mL, without ischemic changes on ECG and in the absence of chest pain. CTA chest was negative for pulmonary embolism, aortic dissection, or other acute intrathoracic pathology. Viral panel and COVID testing were negative. Carotid duplex ultrasound demonstrated 50?60% stenosis of the right internal carotid artery, mild bilateral plaque, and bilateral cervical lymphadenopathy (up to 3.2 cm on the left, 2.3 cm on the right). NT-proBNP was mildly elevated at 484 pg/mL. Transthoracic echocardiogram was technically limited due to a poor acoustic window, but the left ventricular ejection fraction appeared preserved. She remains hemodynamically stable and in normal sinus rhythm. A 30-day event monitor has been ordered, and an outpatient electrophysiology appointment with Dr. Amado has been scheduled. 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, unspecified (ICD-10) History of kidney stones ?Z87.442 - Personal history of urinary calculi (ICD-10) Hypothyroid ?E03.9 - Hypothyroidism, unspecified (ICD-10) History of paroxysmal supraventricular tachycardia ?Z86.79 - Personal history of other diseases of the circulatory system (ICD-10) Miraj-Nxiklgkvb-Myahx (WPW) syndrome ?I45.6 - Pre-excitation syndrome (ICD-10) Surgical History H/O hernia repair ?Z98.890 - Other specified postprocedural states (ICD-10) ?Z87.19 - Personal history of other diseases of the digestive system (ICD-10) History of ?Z98.891 - History of uterine scar from previous surgery (ICD-10) History of cardiac radiofrequency ablation ?Z98.890 - Other specified postprocedural states (ICD-10) Family History Father Family history of cancer Mother Family history of CHF (congestive heart failure) Family history of hypertension Grandmother Family history of CHF (congestive heart failure) Social History Within the past year, how often did you have a drink containing alcohol: never Score interpretation: A score less than 3 is consistent with normal alcohol consumption. Smoking status: Former smoker Non-prescribed substance use: denies use Highest level of school completed/degree received: some college, no degree Little interest or pleasure in doing things: not at all Feeling down, depressed, or hopeless: not at all Meds Home Medications and Allergies Home Medications ?Medication ?Instructions ?Recorded ?Confirmed ?Type metformin 500 mg tablet 500 mg PO DAILY 08/20/24 08/20/24 History thyroid (pork) 90 mg tablet 90 mg PO DAILY 08/20/24 08/20/24 History carvedilol 3.125 mg tablet 3.125 mg PO BID 30 days #60 tabs 08/21/24 Rx Allergies Allergy/AdvReac Type Severity Reaction Status Date / Time No Known Drug Allergies Allergy Verified 08/20/24 15:27 Exam Constitutional Vital Signs, click to edit/add: Last Vital Signs Temp 98.1 F 08/21/24 15:24 Pulse 75 08/21/24 15:55 Resp 20 08/21/24 15:24 BP 114/73 08/21/24 15:24 Pulse Ox 93 L 08/21/24 15:24 O2 Del Method Room Air 08/21/24 15:24 Chest Common normals: inspection of chest normal Chest: symmetrical chest wall rise Cardio Common normals: no JVD, regular rate, regular rhythm, S1 normal heart sound, S2 normal heart sound, no gallops and peripheral pulses 2+ throughout Rate: regular rate Rhythm: regular rhythm Heart sounds: S1 normal and S2 normal Peripheral pulses: pulses 2+ throughout Extremity Common normals: normal to inspection, normal capillary refill, no clubbing, cyanosis or edema and no pedal edema General: normal exam except as noted Results Labs and Meds Lab results: Cardiac Enzymes 08/21/24 Range/Units 05:38 AST 11 L (15-37) U/L Lipids 08/21/24 Range/Units 05:38 Triglycerides 67 (<=150) mg/dL Cholesterol 165 (<=200) mg/dL HDL Cholesterol 46 (40-60) mg/dL Cholesterol/HDL Ratio 3.6 CBC 08/21/24 Range/Units 05:38 WBC 11.2 H (4.0-11.0) 10^3/uL RBC 3.79 L (4.20-5.40) 10^6/uL Hgb 9.0 L (12.0-16.0) g/dL Hct 30.7 L (36.0-48.0) % Plt Count 286 (150-450) 10^3/uL Neut # (Auto) 8.7 H (1.4-6.5) 10^3/uL Lymph # (Auto) 1.5 (1.2-3.8) 10^3/uL [place] # (Auto) 0.9 H (0.3-0.8) 10^3/uL Eos # (Auto) 0.0 (0.0-0.7) 10^3/uL Baso # (Auto) 0.0 (0.0-0.1) 10^3/uL Comprehensive Metabolic Panel 08/21/24 Range/Units 05:38 Sodium 136 (136-145) mmol/L Potassium 3.3 L (3.5-5.1) mmol/L Chloride 102 (98-107) mmol/L Carbon Dioxide 27.3 (21.0-32.0) mmol/L BUN 6.0 L (7.0-18.0) mg/dL Creatinine 0.65 (0.55-1.02) mg/dL Glucose 99 (74-106) mg/dL Calcium 8.4 L (8.5-10.1) mg/dL AST 11 L (15-37) U/L ALT 14 (14-59) U/L Alkaline Phosphatase 96 (46-116) U/L Total Protein 7.1 (6.4-8.2) g/dL Albumin 3.6 (3.4-5.0) g/dL Intake and Output 08/21/24 08/21/24 08/21/24 07:59 15:59 23:59 Intake Total 650 / 650 Output Total 450 / 450 Balance 200 / 200 Intake: Oral 600 / 600 IV 50 / 50 Magnesium Sulfate in Water 2 gm 50 / 50 In 50 ml @ 50 mls/hr IV ONCE ONE Rx#:[id number] Output: Urine 450 / 450 Other: # Voids 2 # Unmeasured Voids 2 Imaging and Cardiology Echo: image reviewed (LVEF appears preserved, technically suboptimal images ) ECG results: image reviewed Assessment and Plan Assessment and Plan (1) Near syncope: Assessment and Plan: Assessment: 44-year-old female with a history of WPW (s/p ablation in 2008) and paroxysmal SVT presented with a near-syncopal episode at work after skipping meals. She described sudden dizziness and a sensation of almost passing out without complete syncope or associated trauma. COVID and viral panels were negative. CTA chest ruled out PE, dissection, or pulmonary pathology. Carotid ultrasound revealed 50?60% stenosis of the right internal carotid artery with mild bilateral plaque, along with bilateral cervical lymphadenopathy (up to 3.2 cm on the left, 2.3 cm on the right). While these findings are unlikely to be the primary cause of her symptoms, they warrant further outpatient evaluation. ? Monitor orthostatic vitals ? Encourage hydration and consistent nutrition ? Consider vascular surgery follow-up for carotid disease surveillance (2) NSTEMI (non-ST elevated myocardial infarction): Assessment and Plan: Assessment: Elevated above the 99th percentile (ULN 51.4 pg/mL) in the absence of ischemic ECG changes or chest pain. CTA chest was unremarkable. Clinical picture suggests non-ischemic myocardial injury or demand ischemia, likely related to hemodynamic stress or transient arrhythmia. ? No further troponin trending needed at this time given downtrending values and clinical stability ? Pending TTE to evaluate for structural heart disease or wall motion abnormalities (3) Hypothyroid: Assessment and Plan: Assessment: Possible contributing factor to fatigue or dizziness if not well controlled. ? Check TSH and Free T4 ? Continue levothyroxine and adjust based on labs Qualifiers: Hypothyroidism type: acquired Qualified Code(s): E03.9 - Hypothyroidism, unspecified (4) History of paroxysmal supraventricular tachycardia: Assessment and Plan: Assessment: History of WPW and SVT s/p ablation in 2008. On evaluation, the patient stated that the symptoms leading to her ablation in 2008 were distinct from her current episode, suggesting a different etiology such as orthostatic or autonomic cause rather than classic reentrant SVT. Nevertheless, recurrence remains a consideration. ? 30-day ambulatory event monitor recommended ? Referred to outpatient electrophysiology; appointment with Dr. Amado has been scheduled (5) Ytklk-Ppebhcgsu-Yopeg (WPW) syndrome: Assessment and Plan: Assessment: History of WPW and SVT s/p ablation in 2008. On evaluation, the patient stated that the symptoms leading to her ablation in 2008 were distinct from her current episode, suggesting a different etiology such as orthostatic or autonomic cause rather than classic reentrant SVT. Nevertheless, recurrence remains a consideration. ? 30-day ambulatory event monitor recommended ? Referred to outpatient electrophysiology; appointment with Dr. Amado has been scheduled (6) History of cardiac radiofrequency ablation: Assessment and Plan: #Paroxysmal SVT / WPW (Remote Ablation in 2008) Assessment: History of WPW and SVT s/p ablation in 2008. On evaluation, the patient stated that the symptoms leading to her ablation in 2008 were distinct from her current episode, suggesting a different etiology such as orthostatic or autonomic cause rather than classic reentrant SVT. Nevertheless, recurrence remains a consideration. ? 30-day ambulatory event monitor recommended ? Referred to outpatient electrophysiology; appointment with Dr. Amado has been scheduled (7) Elevated blood pressure reading: (8) URI (upper respiratory infection): Qualifiers: URI type: unspecified viral URI Qualified Code(s): J06.9 - Acute upper respiratory infection, unspecified Plan Assessment & Plan #Near-Syncope / Dizziness Assessment: 44-year-old female with a history of WPW (s/p ablation in 2008) and paroxysmal SVT presented with a near-syncopal episode at work after skipping meals. She described sudden dizziness and a sensation of almost passing out without complete syncope or associated trauma. COVID and viral panels were negative. CTA chest ruled out PE, dissection, or pulmonary pathology. Carotid ultrasound revealed 50?60% stenosis of the right internal carotid artery with mild bilateral plaque, along with bilateral cervical lymphadenopathy (up to 3.2 cm on the left, 2.3 cm on the right). While these findings are unlikely to be the primary cause of her symptoms, they warrant further outpatient evaluation. ? Monitor orthostatic vitals ? Encourage hydration and consistent nutrition ? Consider vascular surgery follow-up for carotid disease surveillance #Elevated Troponin (Peak 92.8 pg/mL) Assessment: Elevated above the 99th percentile (ULN 51.4 pg/mL) in the absence of ischemic ECG changes or chest pain. CTA chest was unremarkable. Clinical picture suggests non-ischemic myocardial injury or demand ischemia, likely related to hemodynamic stress or transient arrhythmia. ? No further troponin trending needed at this time given downtrending values and clinical stability ? Pending TTE to evaluate for structural heart disease or wall motion abnormalities #Paroxysmal SVT / WPW (Remote Ablation in 2008) Assessment: History of WPW and SVT s/p ablation in 2008. On evaluation, the patient stated that the symptoms leading to her ablation in 2008 were distinct from her current episode, suggesting a different etiology such as orthostatic or autonomic cause rather than classic reentrant SVT. Nevertheless, recurrence remains a consideration. ? 30-day ambulatory event monitor recommended ? Referred to outpatient electrophysiology; appointment with Dr. Amado has been scheduled #Mildly Elevated NT-proBNP (484 pg/mL) Assessment: Mild elevation without clinical signs of heart failure. Likely reflects transient myocardial strain. ? Monitor volume status ? Review pending TTE for EF and diastolic function #Hypothyroidism Assessment: Possible contributing factor to fatigue or dizziness if not well controlled. ? Check TSH and Free T4 ? Continue levothyroxine and adjust based on labs #Viral Syndrome (Mild URI Symptoms) Assessment: Mild cough and sore throat after exposure to an ill family member. COVID and viral panel negative. CTA chest showed no evidence of infection. ? Supportive care Fei Walker [facility] Cardiovascular Medicine
--- NOTE | 2024-08-21 19:30 | ECG_ITS ---
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 Measurements Intervals [place] Rate: 88 P: 83 TX: 102 QRS: 91 QRSD: 101 T: 120 QT: 332 QTc: 402 Interpretive Statements SINUS RHYTHM WITH SHORT TX INTERVAL BORDERLINE RIGHT AXIS DEVIATION [QRS AXIS > 90] POSSIBLE RIGHT VENTRICULAR CONDUCTION DELAY [RSR (QR) IN V1/V2] SEPTAL MYOCARDIAL INFARCTION [40+ ms Q WAVE IN V1/V2], OF INDETERMINATE AGE PROBABLE LATERAL MYOCARDIAL INFARCTION [35 ms Q WAVE IN I/aVL/V5/V6], OF INDETERMINATE AGE ST DEVIATION AND MODERATE T-WAVE ABNORMALITY, CONSIDER ANTERIOR ISCHEMIA [-0.1+ mV T WAVE IN V3/V4] Compared to ECG 08/20/2024 20:40:23 No significant changes Electronically Signed On 08-22-2024 10:27:07 EDT by JANELLE BUTLER M.D.
--- NOTE | 2024-08-24 13:20 | CM.DCFOLLOWU ---
Person spoke with:patient How are you feeling?well How is your pain?none Did you understand your discharge instructions?yes Do you have any questions about your discharge instructions?no Were you given any prescriptions at discharge? yes Were you able to get your prescriptions filled?yes Do you understand how to take your medications as ordered?yes Do you have any questions about your follow up appointment and do you plan to keep your follow up appointment? no questions, called [employer] and scheduled follow up Is there anything else that you would like to discuss? no Questions/Comments/Concerns/Other:none
--- NOTE | 2024-08-24 13:51 | CM.NOTE ---
Faxed Respiratory culture to Jo[facility] office.
--- OUTSIDE RECORDS SUMMARY | 2024-08-28 08:07 | XMS_ITS | CCD ---
Author Organization [facility] Care Team Providers Care Station Helper Name Role Phone [place] ., DR VESNA Duval Admitting Unavailable ANAYA ., DR VESNA Duval Attending Unavailable ANAYA ., DR VESNA Duval Primary Care Unavailable ANAYA ., DR VESNA Duval Consulting Unavailable ANAYA ., DR VESNA Duval Admitting Unavailable ANAYA ., DR VESNA Duval Attending Unavailable ANAYA ., DR VESNA Duval Primary Care Unavailable ANAYA ., DR VESNA Duval Consulting Unavailable ANAYA ., DR VESNA Duval Admitting Unavailable ANAYA ., DR VESNA Duval Attending Unavailable ANAYA ., DR VESNA Duval Primary Care Unavailable ANAYA ., DR VESNA Duval Consulting Unavailable Randall Blevins Consulting Unavailable ANAYA ., DR VESNA Duval Admitting Unavailable ANAYA ., DR VESNA Duval Attending Unavailable ANAYA ., DR VESNA Duval Primary Care Unavailable Cynthia Kellogg Primary Care Physician VENSA ANAYA Attending Unavailable ANAYAVESNA SIFUENTES Attending Unavailable Cynthia Kellogg Attending Unavailable Cynthia Kellogg Admitting Unavailable Cynthia Kellogg Attending Unavailable Armaan Dillon Attending Unavailable Lorrie Soriano Unavailable [phone] Lorrie Soriano Attending Unavailable Lorrie Soriano Primary Care Unavailable Lorrie Soriano Admitting Unavailable Lorrie Soriano APRN Primary Care Provider Lorrie Soriano APRN Attending Provider Allergies Allergy Classification Reported Allergen(s) Allergy Type Date of Onset Reaction(s) Facility (2 sources) Bisoprolol; Translations: [bisoprolol] Drug Allergy Unknown (qualifier value) [facility] Medications Current Medications Medication Drug Class(es) Dates Sig (Normalized) Sig (Original) Adthyza 97.5 MG (1 source) take 1 tablet by mouth once daily Adthyza 97.5 MG 1 tablet on an empty stomach Oral Once a day for 30 days Active Adthyza 97.5 mg oral tablet (1 source) Start: 12-27-2022 take 1 tablet by mouth once daily Adthyza 97.5 mg oral tablet 97.5 mg = 1 tab(s), Oral, Daily, Refills(s) 0 Start Date: 12/27/22 Status: Ordered carvedilol 3.125 mg oral tablet (1 source) alpha-Adrenergic Alanis, beta-Adrenergic Alanis Start: 08-26-2024 take 1 tablet by mouth twice daily at mealtime Carvedilol 3.125 mg tablet Active 3.125 MG PO Twice daily August 26, 2024 12:00am must administer with a meal/food metFORMIN hydrochloride 500 mg oral tablet (8 sources) Biguanide Start: 01-27-2024 End: 06-23-2024 take 1 tablet by mouth once daily at mealtime Metformin 500 mg tablet Active 0 .ROUTE .COMPLEX June 23, 2024 2:53pm TAKE 1 TABLET BY MOUTH EVERY DAY WITH A MEAL FOR 30 DAYS Start: 01-17-2024 End: 01-27-2024 take 1 tablet by mouth once daily Metformin 500 mg tablet Discontinued 500 MG PO Daily January 17, 2024 12:00am January 27, 2024 7:54am Start: 09-05-2022 End: 08-31-2023 take 1 tablet by mouth once daily metformin 500 mg Tab 500 mg = 1 tab(s), Oral, Daily, X 90 day(s), # 90 tab(s), Refills(s) 3, Pharmacy: [facility]/pharmacy #[id number], 170.2, cm, 08/15/22 10:06:00 EDT, Height/Length Dosing, 103.3, kg, 08/15/22 10:06:00 EDT, Weight Dosing Start Date: 09/05/22 Stop Date: 08/31/23 Status: Ordered Thyroid (Pork) (Logan Thyroid) 90 mg tablet (4 sources) Start: 07-27-2024 take 1 tablet by mouth once daily Thyroid (Pork) (Logan Thyroid) 90 mg tablet Active 90 MG PO Daily July 27, 2024 7:46am Start: 05-26-2024 End: 07-27-2024 take 1 tablet by mouth once daily Thyroid (Pork) (Logan Thyroid) 90 mg tablet Discontinued 90 MG PO Daily 30 30 May 26, 2024 1:00am July 27, 2024 7:47am Completed/Discontinued Medications Medication Drug Class(es) Dates Sig (Normalized) Sig (Original) Ketorolac (2 sources) Nonsteroidal Anti-inflammatory Drug, Cyclooxygenase Inhibitor Start: 08-16-2017 Toradol per 15 mg Aug, 30 mg Start: 03-15-2017 Toradol per 15 mg Mar, 30 mg Thyroid (Pork) (Adthyza) 97.5 mg tablet (4 sources) Start: 01-17-2024 End: 05-26-2024 take 1 tablet by mouth once daily Thyroid (Pork) (Adthyza) 97.5 mg tablet Discontinued 97.5 MG PO Daily 90 January 17, 2024 10:16am May 26, 2024 4:39pm Start: 01-17-2024 End: 01-17-2024 take 1 tablet by mouth once daily Thyroid (Pork) (Adthyza) 97.5 mg tablet Discontinued 97.5 MG PO Daily January 17, 2024 12:00am January 17, 2024 10:18am Triamcinolone (2 sources) Corticosteroid Start: 08-16-2017 KENALOG - 10 m g Aug, 40 mg Start: 03-15-2017 KENALOG - 10 m g Mar, 40 mg Problems Active Problems Problem Classification Problem Date Documented Date Episodic/Chronic Abdominal pain (4 sources) Pain in pelvis; Translations: [Pelvic and perineal pain] 04-21-2024 Episodic Adjustment disorders (1 source) Adjustment disorder 08-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 Anxiety disorders (1 source) Anxiety 08-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 Asthma (1 source) Allergic asthma without status asthmaticus 08-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 Calculus of urinary tract (2 sources) History of calculus of kidney; Translations: [Personal history of urinary calculi] 04-21-2024 Episodic Conditions associated with dizziness or vertigo (1 source) Labyrinthitis 08-13-2022 Episodic Diabetes mellitus without complication (1 source) Impaired fasting glucose Episodic Disorders of lipid metabolism (2 sources) Pure hypercholesterolemia , unspecified; Translations: [Hypercholesterolemi a] Onset: 08-26-2022 08-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 Essential hypertension (1 source) Hypertensive disorder 08-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 Headache; including migraine (1 source) Migraine 08-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 Other circulatory disease (1 source) Elevated blood-pressure reading, without diagnosis of hypertension Episodic Other connective tissue disease (4 sources) Fibromyalgia; Translations: [FIBROMYALGIA] Onset: 08-20-2022 Episodic Other connective tissue disease (1 source) Fibromyalgia 08-13-2022 Episodic Other nervous system disorders (1 source) Brachial plexus disorder 08-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 Comment on above: with palsy from [facility] Other nutritional; endocrine; and metabolic disorders (1 source) Other obesity due to excess calories; Translations: [OTHER OBESITY D/T EXCESS CALORIES] Onset: 08-26-2022 Chronic Other nutritional; endocrine; and metabolic disorders (5 sources) Metabolic syndrome; Translations: [METABOLIC SYNDROME] Onset: 10-04-2021 Chronic Other nutritional; endocrine; and metabolic disorders (1 source) Metabolic syndrome X 08-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 Residual codes; unclassified (1 source) Sleep disorder 08-13-2022 Episodic Spondylosis; intervertebral disc disorders; other back problems (2 sources) Lumbago co-occurrent with right-side sciatica; Translations: [Lumbago with sciatica, right side] Episodic Syncope (2 sources) Syncope; Translations: [Syncope and collapse] 08-26-2024 Episodic Thyroid disorders (6 sources) Hypothyroidism, unspecified; Translations: [Hypothyroidism] Onset: 08-26-2022 08-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 Thyroid disorders (2 sources) Disorder of thyroid gland; Translations: [Disorder of thyroid, unspecified] 04-21-2024 Episodic Unclassified (1 source) ANKYLOSIS OTHER SPECIFIED JOINT; Translations: [ANKYLOSIS OTHER SPECIFIED JOINT] Onset: 12-13-2021 Past or Other Problems Problem Classification Problem Date Documented Da te Episodic/Chronic Malaise and fatigue (1 source) Other fatigue; Translations: [OTHER FATIGUE] Onset: 10-10-2021 Episodic Other connective tissue disease (4 sources) Impingement syndrome of unspecified shoulder; Translations: [IMPINGEMENT SYNDROME UNS SHOULDER] Onset: 12-07-2021 Episodic Other connective tissue disease (4 sources) Pain in right finger(s); Translations: [PAIN IN RIGHT FINGERS] Onset: 12-04-2021 Episodic Other connective tissue disease (1 source) Pain in right hand; Translations: [PAIN IN RIGHT HAND] Onset: 12-05-2021 Episodic Results Test Name Value Interpretation Reference Range Facility Alanine aminotransferase [En zymatic activity/volume] in Serum or PlasmaOrdered By: Lorrie Soriano on 08-24-2024 ALT [Catalytic activity/Vol] Alanine aminotransferase [Enzymatic activity/volume] in Serum or Plasma 7-52 [facility] Albumin [Mass/volume] in Ser um or Plasma by Bromocresol green (BCG) dye binding methoOrdered By: Lorrie Soriano on 08-24-2024 Albumin BCG dye [Mass/Vol] Albumin [Mass/volume] in Serum or Plasma by Bromocresol green (BCG) dye binding metho 3.5-5.7 [facility] Alkaline phosphatase [Enzyma tic activity/volume] in Serum or PlasmaOrdered By: Lorrie Soriano on 08-24-2024 ALP [Catalytic activity/Vol] Alkaline phosphatase [Enzymatic activity/volume] in Serum or Plasma 34-104 [facility] Aspartate aminotransferase [ Enzymatic activity/volume] in Serum or PlasmaOrdered By: Lorrie Soriano on 08-24-2024 AST [Catalytic activity/Vol] Aspartate aminotransferase [Enzymatic activity/volume] in Serum or Plasma Low 13-39 [facility] Basophils Auto (Bld) [#/Vol] Ordered By: Lorrie Soriano on 08-24-2024 Basophils (Bld) [#/Vol] Automated basoph il count 0.0-0.2 [facility] Basophils/100 WBC Auto (Bld) Ordered By: Lorrie Soriano on 08-24-2024 Basophils/100 WBC (Bld) Automated basophil % . [facility] Bilirubin.total [Mass/volume ] in Serum or PlasmaOrdered By: Lorrie Soriano on 08-24-2024 Bilirubin [Mass/Vol] Bilirubin.total [Mass/volume] in Serum or Plasma 0.3-1.0 [facility] Calcium [Mass/volume] in Ser um or PlasmaOrdered By: Lorrie Soriano on 08-24-2024 Calcium [Mass/Vol] Calcium [Mass/volume ] in Serum or Plasma 8.6-10.3 [facility] Carbon dioxide, total [Moles /volume] in Serum or PlasmaOrdered By: Lorrie Soriano on 08-24-2024 CO2 [Moles/Vol] Carbon dioxide, tota l [Moles/volume] in Serum or Plasma High 21.0-31.0 [facility] Chloride [Moles/volume] in [place] or PlasmaOrdered By: Lorrie Soriano on 08-24-2024 Chloride [Moles/Vol] Chloride [Moles/vol ume] in Serum or Plasma 98-107 [facility] Complete Blood Count Auto Di ffon 08-24-2024 Basophils (Bld) [#/Vol] 0.0 10*3/uL Normal 0.0-0.2 [facility] Comment on above: Result Comment: PERF ORMED BY: [place] [address] PATHOLOGIST SCRUBBER SYSTEM ATTENDANT SHERRON MAJOR M.D. Performed By: #### T SH3 wRFLX, CMP, CBC #### [address] Basophils/100 WBC (Bld) 0.6 % Normal . T mariajose [facility] Comment on above: Performed By: #### T SH3 wRFLX, CMP, CBC #### [facility] [address] [place] [address] [place] Eosinophils (Bld) [#/Vol] 0.2 10*3/uL Normal 0.0-0.45 [facility] Comment on above: Performed By: #### T SH3 wRFLX, CMP, CBC #### [facility] [address] [place] [address] [place] Eosinophils/100 WBC (Bld) 1.9 % Normal . [facility] Comment on above: Performed By: #### T SH3 wRFLX, CMP, CBC #### [address] Erythrocyte distribution width (RBC) [Ratio] 17.8 % High 11.9-15.3 [facility] Comment on above: Performed By: #### T SH3 wRFLX, CMP, CBC #### [address] Hematocrit (Bld) [Volume fraction] 30.7 % Low 34.0-46.4 [facility] Comment on above: Performed By: #### T SH3 wRFLX, CMP, CBC #### [address] Hemoglobin (Bld) [Mass/Vol] 9.5 g/dL Low 11.8-15.4 [facility] Comment on above: Performed By: #### T SH3 wRFLX, CMP, CBC #### [address] Lymphocytes (Bld) [#/Vol] 2.4 10*3/uL Normal 1.00-4.8 [facility] Comment on above: Performed By: #### T SH3 wRFLX, CMP, CBC #### [address] Lymphocytes/100 WBC (Bld) 28.8 % Normal . [facility] Comment on above: Performed By: #### T SH3 wRFLX, CMP, CBC #### [address] MCH (RBC) [Entitic mass] 24.3 pg Low 24.7-34.3 [facility] Comment on above: Performed By: #### T SH3 wRFLX, CMP, CBC #### [address] MCV (RBC) [Entitic vol] 78.5 fL Low 80-100 [facility] Comment on above: Performed By: #### T SH3 wRFLX, CMP, CBC #### [address] Mean Corpuscular HGB Conc 30.9 g/dL Low 32.0-35.0 [facility] Comment on above: Performed By: #### T SH3 wRFLX, CMP, CBC #### [address] [address] [place] Monocytes (Bld) [#/Vol] 0.6 10*3/uL Normal 0.0-0.8 [facility] Comment on above: Performed By: #### T SH3 wRFLX, CMP, CBC #### [address] Monocytes/100 WBC (Bld) 7.2 % Normal . T he [facility] Comment on above: Performed By: #### T SH3 wRFLX, CMP, CBC #### [address] Neutrophils (Bld) [#/Vol] 5.2 10*3/uL Normal 1.8-7.7 [facility] Comment on above: Performed By: #### T SH3 wRFLX, CMP, CBC #### [address] Neutrophils/100 WBC (Bld) 61.5 % Normal . [facility] Comment on above: Performed By: #### T SH3 wRFLX, CMP, CBC #### [address] NRBC% 0.1 /100{WBC} Normal 0-0.5 [facility] Comment on above: Performed By: #### T SH3 wRFLX, CMP, CBC #### [address] Platelet mean volume (Bld) [Entitic vol] 8.1 fL Normal 6.3-10.7 [facility] Comment on above: Performed By: #### T SH3 wRFLX, CMP, CBC #### [place] [address] [place] Platelets (Bld) [#/Vol] 384 10*3/uL Normal 150-450 [facility] Comment on above: Performed By: #### T SH3 wRFLX, CMP, CBC #### [address] RBC (Bld) [#/Vol] 3.91 10*6/uL Normal 3.60-5.00 [facility] Comment on above: Performed By: #### T SH3 wRFLX, CMP, CBC #### [address] WBC (Bld) [#/Vol] 8.4 10*3/uL Normal 3.8-11.6 [facility] Comment on above: Performed By: #### T SH3 wRFLX, CMP, CBC #### [address] Comprehensive Metabolic Pane kayla 08-24-2024 Albumin [Mass/Vol] 4.2 g/dL Normal 3.5-5.7 [facility] Comment on above: Performed By: #### T SH3 wRFLX, CMP, CBC #### [address] Albumin/Globulin [Mass ratio] 1.4 {ratio} Normal [facility] Comment on above: Performed By: #### T SH3 wRFLX, CMP, CBC #### [address] ALP [Catalytic activity/Vol] 79 U/L Normal 34-104 [facility] Comment on above: Performed By: #### T SH3 wRFLX, CMP, CBC #### [address] ALT [Catalytic activity/Vol] 13 U/L Normal 7-52 [facility] Comment on above: Performed By: #### T SH3 wRFLX, CMP, CBC #### [address] Anion gap [Moles/Vol] 8.9 mmol/L Normal 6.0-15.0 [facility] Comment on above: Performed By: #### T SH3 wRFLX, CMP, CBC #### [address] AST [Catalytic activity/Vol] 11 U/L Low 13-39 [facility] Comment on above: Performed By: #### T SH3 wRFLX, CMP, CBC #### [address] Bilirubin [Mass/Vol] 0.3 mg/dL Normal 0.3-1.0 [facility] Comment on above: Performed By: #### T SH3 SiriaFLX, CMP, CBC #### [address] Calcium [Mass/Vol] 9.3 mg/dL Normal 8.6-10.3 [facility] Comment on above: Performed By: #### T SH3 wRFLX, CMP, CBC #### [address] Chloride [Moles/Vol] 104 mmol/L Normal 98-107 [facility] Comment on above: Performed By: #### T SH3 SiriaFLX, CMP, CBC #### [address] CO2 [Moles/Vol] 31.6 mmol/L High 21.0-31.0 [facility] Comment on above: Performed By: #### T SH3 wRFLX, CMP, CBC #### [address] Creatinine [Mass/Vol] 0.54 mg/dL Low 0.60-1.20 [facility] Comment on above: Performed By: #### T SH3 SiriaFLX, CMP, CBC #### [address] GFR/1.73 sq M.predicted MDRD (S/P/Bld) [Vol rate/Area] mL/min/{1.73_m2} Normal [facility] Comment on above: Performed By: #### T SH3 wRFLX, CMP, CBC #### [place] [address] [place] Globulin (S) [Mass/Vol] 3.0 g/dL Normal [facility] Comment on above: Performed By: #### T SH3 wRFLX, CMP, CBC #### [place] [address] [place] Glucose [Mass/Vol] 92 mg/dL Normal 70-100 [facility] Comment on above: Result Comment: [place] om Glucose Reference Range is dependent on time and content of last meal. Glucose of more than 200 mg/dL in a nonstressed, ambulatory subject supports the diagnosis of Diabetes Mellitus. ADA recommended reference range Performed By: #### T SH3 wRFLX, CMP, CBC #### [facility] [address] Potassium [Moles/Vol] 4.5 mmol/L Normal 3.5-5.1 [facility] Comment on above: Performed By: #### T SH3 wRFLX, CMP, CBC #### [facility] [address] [place] [address] [place] Protein [Mass/Vol] 7.2 g/dL Normal 6.4-8.9 [facility] Comment on above: Performed By: #### T SH3 wRFLX, CMP, CBC #### [facility] [address] [place] [address] [place] Sodium [Moles/Vol] 140 mmol/L Normal 136-145 [facility] Comment on above: Performed By: #### T SH3 wRFLX, CMP, CBC #### [facility] [address] [place] [id number] [place] Urea nitrogen [Mass/Vol] 8 mg/dL Normal 7-25 [facility] Comment on above: Performed By: #### T SH3 wRFLX, CMP, CBC #### [facility] [address] [place] [id number] [place] Creatinine [Mass/volume] in Serum or PlasmaOrdered By: Lorrie Soriano on 08-24-2024 Creatinine [Mass/Vol] Creatinine [Mass/volume] in Serum or Plasma Low 0.60-1.20 [facility] Eosinophils Auto (Bld) [#/Vo l]Ordered By: Lorrie Soriano on 08-24-2024 Eosinophils (Bld) [#/Vol] Automated eosinophil count 0.0-0.45 [facility] Eosinophils/100 WBC Auto (Bl d)Ordered By: Lorrie Soriano on 08-24-2024 Eosinophils/100 WBC (Bld) Automated eosinophil % . [facility] Erythrocyte distribution wid th Auto (RBC) [Ratio]Ordered By: Lorrie Soriano on 08-24-2024 Erythrocyte distribution width (RBC) [Ratio] Erythrocyte distribution width [Ratio] by Automated count High 11.9-15.3 [facility] Globulin Calc (S) [Mass/Vol] Ordered By: Lorrie Soriano on 08-24-2024 Globulin (S) [Mass/Vol] Serum globulin measurement by calculation (mass/volume) [facility] Glucose [Mass/volume] in Ser um or PlasmaOrdered By: Lorrie Soriano on 08-24-2024 Glucose [Mass/Vol] Glucose [Mass/volume ] in Serum or Plasma 70-100 [facility] Comment on above: ADA recommended refe rence rangeRandom Glucose Reference Range is dependent on time and content of last meal. Glucose of more than 200 mg/dL in a nonstressed, ambulatory subject supports the diagnosis of Diabetes Mellitus. Hematocrit Auto (Bld) [Volum e fraction]Ordered By: Lorrie Soriano on 08-24-2024 Hematocrit (Bld) [Volume fraction] Hematocrit [Volume Fraction] of Blood by Automated count Low 34.0-46.4 [facility] Hemoglobin [Mass/volume] in BloodOrdered By: Lorrie Soriano on 08-24-2024 Hemoglobin (Bld) [Mass/Vol] Hemoglobin [Mass/volume] in Blood Low 11.8-15.4 [facility] Leukocytes [#/volume] correc tripp for nucleated erythrocytes in Blood by Automated counOrdered By: Lorrie Soriano on 08-24-2024 WBC corrected for nucl RBC Auto (Bld) [#/Vol] Leukocytes [#/volume] corrected for nucleated erythrocytes in Blood by Automated coun 3.8-11.6 [facility] Lymphocytes Auto (Bld) [#/Vo l]Ordered By: Lorrie Soriano on 08-24-2024 Lymphocytes (Bld) [#/Vol] Lymphocytes [#/volume] in Blood by Automated count 1.00-4.8 [facility] Lymphocytes/100 WBC Auto (Bl d)Ordered By: Lorrie Soriano on 08-24-2024 Lymphocytes/100 WBC (Bld) Lymphocytes/100 leukocytes in Blood by Automated count . [facility] MCH Auto (RBC) [Entitic mass ]Ordered By: Lorrie Soriano on 08-24-2024 MCH (RBC) [Entitic mass] MCH [Entitic mass] by Automated count Low 24.7-34.3 [facility] MCHC Auto (RBC) [Mass/Vol]Or dered By: Lorrie Soriano on 08-24-2024 MCHC (RBC) [Mass/Vol] MCHC [Mass/volume] by Automated count Low 32.0-35.0 [facility] MCV Auto (RBC) [Entitic vol] Ordered By: Lorrie Soriano on 08-24-2024 MCV (RBC) [Entitic vol] MCV [Entitic vol ume] by Automated count Low 80-100 [facility] Monocytes Auto (Bld) [#/Vol] Ordered By: Lorrie Soriano on 08-24-2024 Monocytes (Bld) [#/Vol] Automated blood monocyte count 0.0-0.8 [facility] Monocytes/100 WBC Auto (Bld) Ordered By: Lorrie Soriano on 08-24-2024 Monocytes/100 WBC (Bld) Automated monocyte % . [facility] Neutrophils Auto (Bld) [#/Vo l]Ordered By: Lorrie Soriano on 08-24-2024 Neutrophils (Bld) [#/Vol] Neutrophils [#/volume] in Blood by Automated count 1.8-7.7 [facility] Neutrophils/100 WBC Auto (Bl d)Ordered By: Lorrie Soriano on 08-24-2024 Neutrophils/100 WBC (Bld) Automated neutrophil % . [facility] No Panel InformationOrdered By: Lorrie Soriano on 08-24-2024 Estimated GFR (CKD-EPI) > 60.0 mL/Min [facility] Creatinine Clearance (Chem N/A [facility] Nucleated erythrocytes [Pres ence] in Blood by Automated countOrdered By: Lorrie Soriano on 08-24-2024 Nucleated RBC Auto Ql (Bld) Nucleated erythrocytes [Presence] in Blood by Automated count 0-0.5 [facility] Platelet mean volume Auto (B ld) [Entitic vol]Ordered By: Lorrie Soriano on 08-24-2024 Platelet mean volume (Bld) [Entitic vol] Platelet mean volume [Entitic volume] in Blood by Automated count 6.3-10.7 [facility] Platelets Auto (Bld) [#/Vol] Ordered By: Lorrie Soriano on 08-24-2024 Platelets (Bld) [#/Vol] Platelets [#/vol ume] in Blood by Automated count 150-450 [facility] Potassium [Moles/volume] in Serum or PlasmaOrdered By: Lorrie Soriano on 08-24-2024 Potassium [Moles/Vol] Potassium [Moles/volume] in Serum or Plasma 3.5-5.1 [facility] Protein [Mass/volume] in Ser um or PlasmaOrdered By: Lorrie Soriano on 08-24-2024 Protein [Mass/Vol] Protein [Mass/volume ] in Serum or Plasma 6.4-8.9 [facility] RBC Auto (Bld) [#/Vol]Ordere d By: Lorrie Soriano on 08-24-2024 RBC (Bld) [#/Vol] Erythrocytes [#/volu me] in Blood by Automated count 3.60-5.00 [facility] Serum or plasma albumin/glob ulin mass ratioOrdered By: Lorrie Soriano on 08-24-2024 Albumin/Globulin [Mass ratio] Serum or plasma albumin/globulin mass ratio [facility] Serum or plasma anion gap de terminationOrdered By: Lorrie Soriano on 08-24-2024 Anion gap [Moles/Vol] Serum or plasma an ion gap determination 6.0-15.0 [facility] Sodium [Moles/volume] in Ser um or PlasmaOrdered By: Lorrie Soriano on 08-24-2024 Sodium [Moles/Vol] Sodium [Moles/volume ] in Serum or Plasma 136-145 [facility] Thyroid Stim Hormone w/Rflxo n 08-24-2024 Thyroid Stim Hormone w/Rflx 0.65 u[iU]/mL Normal 0.45-5.33 [facility] Comment on above: Result Comment: PERF ORMED BY: [facility] [address] [place] [address] PATHOLOGIST SCRUBBER SYSTEM ATTENDANT SHERRON MAJOR M.D. Performed By: #### T SH3 wRFLX, CMP, CBC #### [facility] [address] Thyrotropin [Units/volume] i n Serum or PlasmaOrdered By: Lorrie Soriano on 08-24-2024 TSH Qn Thyrotropin [Units/volume] in Serum or Plasma 0.45-5.33 [facility] Urea nitrogen [Mass/volume] in Serum or PlasmaOrdered By: Lorrie Soriano on 08-24-2024 Urea nitrogen [Mass/Vol] Urea nitrogen [Mass/volume] in Serum or Plasma 7 [facility] WBC Auto (Bld) [#/Vol]Ordere d By: Lorrie Soriano on 08-24-2024 WBC (Bld) [#/Vol] Leukocytes [#/volume ] in Blood by Automated count 3.8-11.6 [facility] Basophils Auto (Bld) [#/Vol] on 08-21-2024 Basophils (Bld) [#/Vol] Automated basoph il count 0.0-0.1 [facility] Basophils/100 WBC Auto (Bld) on 08-21-2024 Basophils/100 WBC (Bld) Automated basophil % 0. 2-2.0 [facility] Buprenorphine [Presence] in Urineon 08-21-2024 Buprenorphine Ql (U) Buprenorphine [Presence] in Urine NEGATIVE [facility] Comment on above: DRUG CLASS TEST SYST EM CUT-OFF CONCENTRATIONS ARE ASFOLLOWS:AMP (Amphetamine): 500 ng/mLBAR (Barbiturates): 200 ng/mLBZO (Benzodiazepines): 150 ng/mLBUP (Buprenorphine): 10 ng/mLCOC (Cocaine): 150 ng/mLmAMP (Methamphetamine): 500 ng/mLMTD (Methadone): 200 ng/mLOPI (Opiates): 100 ng/mLOXY (Oxycodone): 100 ng/mLPCP (Phencyclidine): 25 ng/mLTHC (Cannabinoids): 50 ng/mLTCA (Trycyclic Antidepressants): 300 ng/mL Cholesterol in LDL Calc [Mas s/Vol]on 08-21-2024 Cholesterol in LDL [Mass/Vol] Cholesterol in LDL [Mass/volume] in Serum or Plasma by calculation [facility] Comment on above: <100 mg/dl [id number] 0-129 mg/dl NEAR OR ABOVE [id number] mg/dl BORDERLINE [id number] mg/dl HIGH>190 mg/dl VERY HIGH Cholesterol in VLDL Calc [Ma ss/Vol]on 08-21-2024 Cholesterol in VLDL [Mass/Vol] Cholesterol in VLDL [Mass/volume] in Serum or Plasma by calculation [facility] Eosinophils/100 WBC Auto (Bl d)on 08-21-2024 Eosinophils/100 WBC (Bld) Automated eosinophil % Low 0.9-7.0 [facility] Erythrocyte distribution wid th Auto (RBC) [Ratio]on 08-21-2024 Erythrocyte distribution width (RBC) [Ratio] Erythrocyte distribution width [Ratio] by Automated count High 11.0-15.0 [facility] Estimated glomerular filtrat ion rate (GFR) non- Americanon 08-21-2024 GFR/1.73 sq M.predicted among non-blacks MDRD (S/P/Bld) [Vol rate/Area] Estimated glomerular filtration rate (GFR) non- >=60 mL/min/1.73 m 2 [facility] Globulin Calc (S) [Mass/Vol] on 08-21-2024 Globulin (S) [Mass/Vol] Serum globulin measurement by calculation (mass/volume) [facility] Glucose mean value [Mass/vol ume] in Blood Estimated from glycated hemoglobinon 08-21-2024 Average glucose Estimated from glycated hemoglobin (Bld) [Mass/Vol] Glucose mean value [Mass/volume] in Blood Estimated from glycated hemoglobin [facility] HCG ( test) Laci d Ql (U)on 08-21-2024 HCG ( test) Ql (U) Urine human chorionic gonadotropin (hCG) detection by immunoassay NEGATIVE [facility] Hematocrit Auto (Bld) [Volum e fraction]on 08-21-2024 Hematocrit (Bld) [Volume fraction] Hematocrit [Volume Fraction] of Blood by Automated count Low 36.0-48.0 [facility] Hemoglobin A1c percentageon 08-21-2024 HbA1c (Bld) [Mass fraction] Hemoglobin A1c percentage 4.5-6.2 [facility] Comment on above: ADA RECOMMENDED LIMI T 4.0 - 6.0ADA THERAPEUTIC TARGET < 7.0ACTION SUGGESTED> 7.0 Hemoglobin [Mass/volume] in Bloodon 08-21-2024 Hemoglobin (Bld) [Mass/Vol] Hemoglobin [Mass/volume] in Blood Low 12.0-16.0 [facility] Laboratory - Chemistry and C hemistry - challengeon 08-21-2024 Albumin [Mass/Vol] 3.6 g/dL 3.4-5.0 [facility] ALP [Catalytic activity/Vol] 96 U/L 46-116 [facility] ALT [Catalytic activity/Vol] 14 U/L 14-59 [facility] AST [Catalytic activity/Vol] 11 U/L Low 15-37 [facility] Bilirubin [Mass/Vol] 0.5 mg/dL 0.2-1.0 [facility] Calcium [Mass/Vol] 8.4 mg/dL Low 8.5-10.1 [facility] Chloride [Moles/Vol] 102 mmol/L 98-107 [facility] Cholesterol [Mass/Vol] 165 mg/dL <=200 [facility] Cholesterol in HDL [Mass/Vol] 46 mg/dL 40-60 [facility] Comment on above: > or =60 mg/dl - LOW CARDIOVASCULAR RISK<40 mg/dl - HIGH CARDIOVASCULAR RISK CO2 [Moles/Vol] 27.3 mmol/L 21.0-32.0 [facility] Creatinine [Mass/Vol] 0.65 mg/dL 0.55-1.02 [facility] Free T4 [Mass/Vol] 0.81 ng/dL 0.76-1.46 [facility] GFR/1.73 sq M.predicted MDRD (S/P/Bld) [Vol rate/Area] mL/min/{1.73_m2} >=60 mL/min/1.73 m 2 [facility] Glucose [Mass/Vol] 99 mg/dL 74-106 [facility] Magnesium [Mass/Vol] 1.6 mg/dL Low 1.8-2.4 [facility] Natriuretic peptide B (Bld) [Mass/Vol] 484.0 pg/mL High <=450.0 [facility] Potassium [Moles/Vol] 3.3 mmol/L Low 3.5-5.1 [facility] Protein [Mass/Vol] 7.1 g/dL 6.4-8.2 [facility] Sodium [Moles/Vol] 136 mmol/L 136-145 [facility] Triglyceride [Mass/Vol] 67 mg/dL <=150 [facility] TSH Qn 0.241 m[IU]/L Low 0.358-3.740 [facility] Urea nitrogen [Mass/Vol] 6.0 mg/dL Low 7.0-18.0 [facility] Urea nitrogen/Creatinine [Mass ratio] 9.2 mg/mg [facility] Laboratory - Drug toxicology on 08-21-2024 Amphetamines Ql (U) Negative NEGATIVE [facility] Benzodiazepines Ql (U) Negative NEGATIVE [facility] Cocaine Ql (U) Negative NEGATIVE [facility] Opiates Ql (U) Negative NEGATIVE [facility] Phencyclidine Ql (U) Negative NEGATIVE [facility] Laboratory - Hematology and Cell countson 08-21-2024 Immature granulocytes/100 WBC (Bld) 0.4 % 0.0-0.5 [facility] Leukocytes [#/volume] correc tripp for nucleated erythrocytes in Blood by Automated counon 08-21-2024 WBC corrected for nucl RBC Auto (Bld) [#/Vol] Leukocytes [#/volume] corrected for nucleated erythrocytes in Blood by Automated coun High 4.0-11.0 [facility] Lymphocytes Auto (Bld) [#/Vo l]on 08-21-2024 Lymphocytes (Bld) [#/Vol] Lymphocytes [#/volume] in Blood by Automated count 1.2-3.8 [facility] Lymphocytes/100 WBC Auto (Bl d)on 08-21-2024 Lymphocytes/100 WBC (Bld) Lymphocytes/100 leukocytes in Blood by Automated count Low 20.5-60.0 [facility] MCH Auto (RBC) [Entitic mass ]on 08-21-2024 MCH (RBC) [Entitic mass] MCH [Entitic mass] by Automated count Low 26.7-34.0 [facility] MCHC Auto (RBC) [Mass/Vol]on 08-21-2024 MCHC (RBC) [Mass/Vol] MCHC [Mass/volume] by Automated count Low 29.9-35.2 [facility] MCV Auto (RBC) [Entitic vol] on 08-21-2024 MCV (RBC) [Entitic vol] MCV [Entitic vol ume] by Automated count 81.0-99.0 [facility] Methadone [Presence] in Urin e by Screen methodon 08-21-2024 Methadone Screen Ql (U) Methadone [Prese nce] in Urine by Screen method NEGATIVE [facility] Monocytes Auto (Bld) [#/Vol] on 08-21-2024 Monocytes (Bld) [#/Vol] Automated blood monocyte count High 0.3-0.8 [facility] Monocytes/100 WBC Auto (Bld) on 08-21-2024 Monocytes/100 WBC (Bld) Automated monocyte % 1. 7-12.0 [facility] Neutrophils Auto (Bld) [#/Vo l]on 08-21-2024 Neutrophils (Bld) [#/Vol] Neutrophils [#/volume] in Blood by Automated count High 1.4-6.5 [facility] Neutrophils/100 WBC Auto (Bl d)on 08-21-2024 Neutrophils/100 WBC (Bld) Automated neutrophil % High 43.0-75.0 [facility] No Panel Informationon 08-21 Troponin I High Sensitivity 71.0 pg/mL Critically high 4.0-51.3 [facility] Comment on above: RESULTS CALLED TO SA RA DA SILVA, RNCUT-OFF POINTS HAVE BEEN ESTABLISHED BASED ON THE FOURTHUNIVERSAL DEFINITION OF MYOCARDIAL INFARCTION. THE UPPERREFERENCE LIMIT (URL) OF TROPONIN, DEFINED THE 99THPERCENTILE OF cTnI DISTRIBUTION IN A REFERENCE POPULATION,HAS BEEN CONFIRMED THE DECISION THRESHOLD FOR MIDIAGNOSIS.99TH PERCENTILE = 51.4 PG/MLNOTE: HIGH-SENSITIVITY TROPONIN ASSAY IS NOT INTENDED TO BEUSED IN ISOLATION BUT SHOULD BE INTERPRETED IN CONJUNCTIONWITH OTHER DIAGNOSTIC AND CLINICAL INFORMATION. Urine Barbiturates Screen Negative NEGATIVE [facility] Urine Marijuana (THC) Screen Negative NEGATIVE [facility] Urine Methamphetamines Screen Negative NEGATIVE [facility] Eosinophils # (Auto) 0.0 10 3/uL 0.0-0.7 [facility] Immature Granulocyte # (Auto) 0.04 10 3/uL High 0.00-0.03 [facility] Platelet mean volume Auto (B ld) [Entitic vol]on 08-21-2024 Platelet mean volume (Bld) [Entitic vol] Platelet mean volume [Entitic volume] in Blood by Automated count 9.5-13.5 [facility] Platelets Auto (Bld) [#/Vol] on 08-21-2024 Platelets (Bld) [#/Vol] Platelets [#/vol ume] in Blood by Automated count 150-450 [facility] RBC Auto (Bld) [#/Vol]on RBC (Bld) [#/Vol] Erythrocytes [#/volu me] in Blood by Automated count Low 4.20-5.40 [facility] Serum or plasma albumin/glob ulin mass ratioon 08-21-2024 Albumin/Globulin [Mass ratio] Serum or plasma albumin/globulin mass ratio [facility] Serum or plasma anion gap de terminationon 08-21-2024 Anion gap [Moles/Vol] Serum or plasma an ion gap determination [facility] Serum or plasma total choles terol/high density lipoprotein (HDL) cholesterol mass eddy 08-21-2024 Cholesterol.total/Christine sterol in HDL [Mass ratio] Serum or plasma total cholesterol/high density lipoprotein (HDL) cholesterol mass rat [facility] Comment on above: 3.3 - 4.4 LOW RISK4. 4 - 7.1 AVERAGE RISK7.1 - 11.0 MODERATE RISK>11.0 HIGH RISK Urine tricyclic antidepressa nt measurementon 08-21-2024 Tricyclic antidepressants (U) [Mass/Vol] Urine tricyclic antidepressant measurement NEGATIVE [facility] oxyCODONE+oxyMORphone [Prese nce] in Urine by Screen methodon 08-21-2024 oxyCODONE+oxyMORphone Screen Ql (U) oxyCODONE+oxyMORphone [Presence] in Urine by Screen method NEGATIVE [facility] Basophils Auto (Bld) [#/Vol] on 08-20-2024 Basophils (Bld) [#/Vol] Automated basoph il count 0.0-0.1 [facility] Basophils/100 WBC Auto (Bld) on 08-20-2024 Basophils/100 WBC (Bld) Automated basophil % Low 0. 2-2.0 [facility] Eosinophils/100 WBC Auto (Bl d)on 08-20-2024 Eosinophils/100 WBC (Bld) Automated eosinophil % Low 0.9-7.0 [facility] Erythrocyte distribution wid th Auto (RBC) [Ratio]on 08-20-2024 Erythrocyte distribution width (RBC) [Ratio] Erythrocyte distribution width [Ratio] by Automated count High 11.0-15.0 [facility] Estimated glomerular filtrat ion rate (GFR) non- Americanon 08-20-2024 GFR/1.73 sq M.predicted among non-blacks MDRD (S/P/Bld) [Vol rate/Area] Estimated glomerular filtration rate (GFR) non- >=60 mL/min/1.73 m 2 [facility] Hematocrit Auto (Bld) [Volum e fraction]on 08-20-2024 Hematocrit (Bld) [Volume fraction] Hematocrit [Volume Fraction] of Blood by Automated count Low 36.0-48.0 [facility] Hemoglobin [Mass/volume] in Bloodon 08-20-2024 Hemoglobin (Bld) [Mass/Vol] Hemoglobin [Mass/volume] in Blood Low 12.0-16.0 [facility] Laboratory - Chemistry and C hemistry - challengeon 08-20-2024 Calcium [Mass/Vol] 8.7 mg/dL 8.5-10.1 [facility] Chloride [Moles/Vol] 98 mmol/L 98-107 [facility] CO2 [Moles/Vol] 24.9 mmol/L 21.0-32.0 [facility] Creatinine [Mass/Vol] 0.76 mg/dL 0.55-1.02 [facility] GFR/1.73 sq M.predicted MDRD (S/P/Bld) [Vol rate/Area] mL/min/{1.73_m2} >=60 mL/min/1.73 m 2 [facility] Glucose [Mass/Vol] 139 mg/dL High 74-106 [facility] Potassium [Moles/Vol] 3.5 mmol/L 3.5-5.1 [facility] Sodium [Moles/Vol] 131 mmol/L Low 136-145 [facility] Urea nitrogen [Mass/Vol] 7.0 mg/dL 7.0-18.0 [facility] Urea nitrogen/Creatinine [Mass ratio] 9.2 mg/mg [facility] Laboratory - Hematology and Cell countson 08-20-2024 Immature granulocytes/100 WBC (Bld) 0.4 % 0.0-0.5 [facility] - Microbiology an d Antimicrobial susceptibilityon 08-20-2024 S. pyogenes Ag Ql (Unsp spec) Negative [facility] SARS-CoV-2 (COVID-19) RNA LIZETT+probe Ql (Unsp spec) Negative NEGATIVE [facility] Comment on above: This test has not be en FDA cleared or approved, but has beenauthorized by the FDA under an Emergency Use Authorization(EUA) for use by authorized laboratories certified underIA that meet the requirements to perform moderate or highcomplexity testing. This test has been authorized only forthe detection of proteins from SARS-CoV-2, not for any otherviruses or pathogens. The emergency use of this test isauthorized for the duration of the declaration thatcircumstances exist justifying the authorization ofemergency use of in vitro diagnostic tests for detectionand/or diagnosis of Covid-19 under section 564(b)(1) of theAct, 21 U.S.C. 360bbb-3(b)(1), unless the declaration isterminated or authorization is revoked sooner. Leukocytes [#/volume] correc tripp for nucleated erythrocytes in Blood by Automated counon 08-20-2024 WBC corrected for nucl RBC Auto (Bld) [#/Vol] Leukocytes [#/volume] corrected for nucleated erythrocytes in Blood by Automated coun High 4.0-11.0 [facility] Lymphocytes Auto (Bld) [#/Vo l]on 08-20-2024 Lymphocytes (Bld) [#/Vol] Lymphocytes [#/volume] in Blood by Automated count Low 1.2-3.8 [facility] Lymphocytes/100 WBC Auto (Bl d)on 08-20-2024 Lymphocytes/100 WBC (Bld) Lymphocytes/100 leukocytes in Blood by Automated count Low 20.5-60.0 [facility] MCH Auto (RBC) [Entitic mass ]on 08-20-2024 MCH (RBC) [Entitic mass] MCH [Entitic mass] by Automated count Low 26.7-34.0 [facility] MCHC Auto (RBC) [Mass/Vol]on 08-20-2024 MCHC (RBC) [Mass/Vol] MCHC [Mass/volume] by Automated count 29.9-35.2 [facility] MCV Auto (RBC) [Entitic vol] on 08-20-2024 MCV (RBC) [Entitic vol] MCV [Entitic vol ume] by Automated count Low 81.0-99.0 [facility] Monocytes Auto (Bld) [#/Vol] on 08-20-2024 Monocytes (Bld) [#/Vol] Automated blood monocyte count 0.3-0.8 [facility] Monocytes/100 WBC Auto (Bld) on 08-20-2024 Monocytes/100 WBC (Bld) Automated monocyte % 1. 7-12.0 [facility] Neutrophils Auto (Bld) [#/Vo l]on 08-20-2024 Neutrophils (Bld) [#/Vol] Neutrophils [#/volume] in Blood by Automated count High 1.4-6.5 [facility] Neutrophils/100 WBC Auto (Bl d)on 08-20-2024 Neutrophils/100 WBC (Bld) Automated neutrophil % High 43.0-75.0 [facility] No Panel Informationon 08-20 Troponin I High Sensitivity 78.4 pg/mL Critically high 4.0-51.3 [facility] Comment on above: RESULTS CALLED TO Me Canelo Calix RN @BY Mynor Mims [place] at 2007CUT-OFF POINTS HAVE BEEN ESTABLISHED BASED ON THE FOURTHUNIVERSAL DEFINITION OF MYOCARDIAL INFARCTION. THE UPPERREFERENCE LIMIT (URL) OF TROPONIN, DEFINED THE 99THPERCENTILE OF cTnI DISTRIBUTION IN A REFERENCE POPULATION,HAS BEEN CONFIRMED THE DECISION THRESHOLD FOR MIDIAGNOSIS.99TH PERCENTILE = 51.4 PG/MLNOTE: HIGH-SENSITIVITY TROPONIN ASSAY IS NOT INTENDED TO BEUSED IN ISOLATION BUT SHOULD BE INTERPRETED IN CONJUNCTIONWITH OTHER DIAGNOSTIC AND CLINICAL INFORMATION. Eosinophils # (Auto) 0.1 10 3/uL 0.0-0.7 [facility] Immature Granulocyte # (Auto) 0.06 10 3/uL High 0.00-0.03 [facility] Bedside Influenza Type A Antigen Negative [facility] Comment on above: Negative for Flu A p rotein antigen. Infection due to Flu Acannot be ruled out. Flu A antigen in the sample may bebelow the detection limit of the test. Bedside Influenza Type B Antigen Negative [facility] Comment on above: Negative for Flu B p rotein antigen. Infection due to Flu Bcannot be ruled out. Flu B antigen in the sample may bebelow the detection limit of the test. Platelet mean volume Auto (B ld) [Entitic vol]on 08-20-2024 Platelet mean volume (Bld) [Entitic vol] Platelet mean volume [Entitic volume] in Blood by Automated count 9.5-13.5 [facility] Platelets Auto (Bld) [#/Vol] on 08-20-2024 Platelets (Bld) [#/Vol] Platelets [#/vol ume] in Blood by Automated count 150-450 [facility] RBC Auto (Bld) [#/Vol]on RBC (Bld) [#/Vol] Erythrocytes [#/volu me] in Blood by Automated count Low 4.20-5.40 [facility] Serum or plasma anion gap de terminationon 08-20-2024 Anion gap [Moles/Vol] Serum or plasma an ion gap determination [facility] Reminderson 01-04-2023 Reminders - From: Cynthia Espinoza To: [facility] - Clinical; Sent: 12/31/2022 08:17:14 EDT Show up: 12/31/2022 08:17:00 EDT Subject: Ambulatory Reminder Due Date/Time: 01/01/2023 08:16:00 EDT Let Adry know her Thyroid labs are normal Results: Date Result Name Value Ref Range 12/27/2022 15:23 TSH 1.52 mcIU/mL (0.34 - 5.60) 12/27/2022 15:23 T4 Free 0.65 ng/dL (0.58 - 1.64) 12/27/2022 15:23 T3 Free 3.5 pg/mL (2.0-4.4 - ) notified patient Thyroid labs normal Normal [facility] T3 Freeon 12-29-2022 Free T3 [Mass/Vol] 3.5 pg/mL Invalid Interpretation Code 2.0-4.4 [facility] Comment on above: Result Comment: Perf ormed at: [facility] [address] [id number] PhD Suzy Shoemaker Performed By: #### 2 [id number] ####[facility] [id number] [place] [address] CHEMISTRYOrdered By: SYSTEM SYSTEM on 12-27-2022 Free T4 [Mass/Vol] 0.65 ng/dL Normal 0.58 - 1. 64 ng/dL [facility] T[facility] Qn 1.52 m[IU]/L Normal 0.34 - 5.60 mcIU/mL FT [facility] Family Medicine Office/Clini c Noteon 12-27-2022 Family Medicine Office/Clinic Note HPI Staff Adry is a 42 year old female presenting to [facility] care Establish Care: History: Any previous diagnosis: Anxiety, HTN, Hypercholesterolemia, migraines, sleep disorder, hypothyroidism History of seeing any specialist: Last provider: Dr Anaya Any recent labs: 08/20/22 TSH 0.053 LEI: 6 PHQ-9: 0 Health Maintenance UTD: Colonoscopy: no Mammogram: no Pelvic/Pap: 15 years ago normal Acute: Current issues/complaints: pt would like her TSH checked, pt would like to discuss if she is starting to go through menopause she is irregular and color is dark brown and her mood is always irritable History of Present Illness pt presents today for 3 month check on TSH. medication dose was adjusted in August Review of Systems PHQ Score Initial Depression Screen Score: 0 ROS - Provider Constitutional: no fever, no chills, no sweats, no fatigue Respiratory: no shortness of breath, no cough, no orthopnea, no wheezing. Cardiovascular: no chest pain, no palpitations, no edema. Neurologic: no headache, no dizziness, no numbness, no weakness. Physical Exam Vitals & Measurements HR: 76(Peripheral) RR: 18 BP: 146/92 SpO2: 97% HT: 67 in HT: 170 cm WT: 104.5 kg WT: 229.9 lb BMI: 36.16 General: alert, no acute distress ENMT: oral mucosa moist, no pharyngeal erythema or exudate Cardiovascular: regular rate and rhythm, normal peripheral perfusion Respiratory: Lungs CTA, respirations non labored Extremities: no deformity, no trauma Neurological: oriented x 4, LOC appropriate for age, CN II-XII intact, motor strength equal & normal bilaterally, speech normal Assessment/Plan 1. Hypothyroid (E03.9: Hypothyroidism, unspecified) pt presents for follow up lab work. TSH was low in August. will draw labs in office today. pt is doing well otherwise. discussed BP being slightly elevated. pt states it is always high. will recheck at next visit in 3 months. all questions answered. RTC 3 months Ordered: Free T4 T3 Free Thyroid Stimulating Hormone 2. BMI 36.0-36.9,adult (Z68.36: Body mass index [BMI] 36.0-36.9, adult) BMI education complete 3. Non-smoker (Z78.9: Other specified health status) continue not smoking Follow-up No qualifying data available Problem List/Past Medical History Ongoing 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 Fibromyalgia Hypercholesterolemia Hypertension Hypothyroid Labyrinthitis Metabolic syndrome X Migraines Sleep disorder Historical No qualifying data Procedure/Surgical History Ablation, section, History of umbilical hernia surgery, Reconstruction of maxilla, Transplant. Medications Adthyza 97.5 mg oral tablet, 97.5 mg= 1 tab(s), Oral, Daily metformin 500 mg Tab, 500 mg= 1 tab(s), Oral, Daily, 3 refills Allergies bisoprolol (Unknown) Social History Alcohol Substance Abuse Tobacco Never (less than 100 in lifetime) Tobacco Use:. Never Smokeless Tobacco Use:. Household tobacco concerns: No., 12/27/2022 Family History Family history is negative Immunizations Vaccine Date Status Comments SARS-CoV-2 mRNA (tojigneshnameran 5y-11y) vac - Not Given Postpone due to refusal measles/mumps/rubella virus vaccine 04/13/2022 Recorded hepatitis B adult vaccine 04/13/2022 Recorded measles/mumps/rubella virus vaccine 03/05/2022 Recorded hepatitis B adult vaccine 03/05/2022 Recorded Normal [facility] Comment on above: Result Comment: Elec tronically Signed By: Valdez MOSLEY, Cynthia Darden\.br\Date and Time Signed: 12/27/22 15:19 EDT Free T4on 12-27-2022 Free T4 [Mass/Vol] 0.65 ng/dL Normal 0.58-1.64 [facility] Comment on above: Performed By: #### 2 [id number] ####[facility] [id number] [place] [address] TSHon 12-27-2022 TSH Qn 1.52 m[IU]/L Normal 0.34-5.60 [facility] Comment on above: Performed By: #### 2 [id number] ####[facility] [id number] [place] [address] Consent for Treatmenton 11-10 Consent for Treatment [id number] D:127 Normal [facility] Discharge Instructionson Discharge Instructions [id number] CD:127 Normal [facility] ED Clinical Summaryon 2022 ED Clinical Summary (Inserted Image. Joslyn ble to display) [address] [address] ED Clinical Summary Person Information Name: YUMIKO ADRY L [place] Age: 42 Years : 1980 Sex: Female Language: Panamanian PCP: NONE, XXXX Marital Status: Single Phone: [phone] Visit Id: Visit Reason: Red eye; Eye pain; RIGHT EYE PAIN & SWELLING Speciality: Acuity: 4 Enc Type: Emergency Med Service: Emergency Arrival: 11/22/2022 12:46:49 Discharge: 11/22/2022 13:48:44 LOS: 000 01:02 Checkin: 11/22/2022 12:46:49 Checkout: 11/22/2022 13:48:44 Dispo Type: Home (Routine DC) EVENTS: Event Name Event Status Request Date/Time Start Date/Time Complete Date/Time Arrive Complete 11/22/2022 12:46:49 11/22/2022 12:46:49 11/22/2022 12:46:49 Document Home Meds Request 11/22/2022 12:46:49 Triage Complete 11/22/2022 12:46:49 11/22/2022 12:56:30 11/22/2022 12:56:30 Registration Complete 11/22/2022 12:52:31 11/22/2022 12:52:31 11/22/2022 12:52:31 Reg Complete Request 11/22/2022 12:52:31 Reg Bed Request Complete 11/22/2022 12:52:31 11/22/2022 12:52:31 11/22/2022 12:52:31 Bed Assign Complete 11/22/2022 13:13:00 11/22/2022 13:13:00 11/22/2022 13:13:00 Dr Exam Complete 11/22/2022 13:13:00 11/22/2022 13:23:58 11/22/2022 13:23:58 RN Exam Complete 11/22/2022 13:13:00 11/22/2022 13:18:30 11/22/2022 13:18:30 Registration Request 11/22/2022 13:23:58 Meds Admin Complete 11/22/2022 13:33:24 11/22/2022 13:45:18 Discharge Complete 11/22/2022 13:33:46 11/22/2022 13:48:53 11/22/2022 13:48:53 Dr Exam Complete 11/22/2022 13:35:51 11/22/2022 13:35:51 11/22/2022 13:35:51 Transfer Complete 11/22/2022 13:48:53 11/22/2022 13:48:53 11/22/2022 13:48:53 ADDRESS: [address] [facility] [id number] PHYS DOC NOTES: MEDICAL INFORMATION: Prescriptions Given: New Medications [id number], [address], [place] [id number], [phone] erythromycin ophthalmic (erythromycin Opth 0.5% Oint) 1/4 inch ribbon Right eye 2 times a day for 10 Days. Refills: 0. Medications to Continue with No Changes Other Medications metformin (metformin 500 mg Tab) 1 Tablets By Mouth every day for 90 Days. Refills: 3. thyroid desiccated (thyroid desiccated 97.5 mg oral tablet) 1 Tablets By Mouth every day. Refills: 1. PATIENT EDUCATION INFORMATION: Instructions: Blepharitis Follow up: With: Address: When: [address]or[address] [employer] [place] [phone] Business (1) In 3 days 11/25/2022 DIAGNOSIS: Blepharitis Normal [facility] ED Note-Physicianon 11-23-19 ED Note-Physician Basic Information Time Seen: Maxwell Rodriguez PA-C 11/22/2022 13:23 Chief Complaint pt. c/o R eye redness and swelling since yesterday, states she does have allergies but has never had this happen. R mouth droop is defect per pt. History of Present Illness 42-year-old female comes to the ED for evaluation of right eye redness. Since yesterday she has had redness to the right inferior eyelid. Associated tenderness. No fever, chills, nausea or vomiting. No visual changes. No trauma to the area. No prior treatments. Review of Systems A 10 point review of systems is negative except as noted above. Medical and Surgical History: Reviewed and noted Social history: Lives at home Tobacco: Denies Physical Exam Vitals & Measurements T: 36.8 ?C(Oral) HR: 71(Peripheral) RR: 16 BP: 169/98 SpO2: 99% HT: 170 cm WT: 104 kg BMI: 35.99 Nurses notes and vital signs reviewed and patient is not hypoxic. General: The patient appears well, resting comfortably. Skin: Warm, dry. Head: Atraumatic. Neck: No JVD. Eye: Conjunctive are clear bilaterally. There is some puffiness under the right with mild erythema along the right inferior eyelid. There does appear to be a small stye formation laterally. No drainage. No photophobia. Skin is intact. Ears, Nose, Mouth, and Throat: Moist mucous membranes. Cardiovascular: Strong distal pulses. Chest wall: Respiratory: Respirations are nonlabored. Back: Normal range of motion. Musculoskeletal: Normal ROM with no gross deformity. Gastrointestinal: Urological: Neurological: Awake and alert. No focal deficits. Follows commands. Psychiatric: Cooperative. Medical Decision Making Patient is a blepharitis to the right inferior eyelid with a small stye formation. Educated warm compresses. She is treated with dexamethasone here and discharged home with erythromycin ophthalmic ointment. Patient was encouraged to return to the ED if symptoms worsen or change. Assessment/Plan Blepharitis (H01.009: Unspecified blepharitis unspecified eye, unspecified eyelid) Orders: dexamethasone, 12 mg = 3 tab(s), Tab, Oral, Once, Stop date 11/22/22 13:32:00 EDT, STAT, Start date 11/22/22 13:32:00 EDT, 11/22/22 13:32:00 EDT erythromycin ophthalmic, 1/4 inch ribbon, Eye-Right, BID for 10 day(s), 7 gm, Refill(s) 0, [facility]/pharmacy #[id number], 170, cm, 11/22/22 12:56:00 EDT, Height/Length Dosing, 104, kg, 11/22/22 12:56:00 EDT, Weight Dosing Disposition Plan Patient Discharge Condition Disposition: Discharged home Condition: Improved and stable Counseled: Patient and/or family were counseled to workup, results, treatment plan and follow-up recommendations Discharge Prescription List Prescriptions erythromycin Opth 0.5% Oint, 1/4 inch ribbon, Eye-Right, BID Follow-up With When Contact Information Devorah Sandoval In 3 days 11/25/[address] [place] [address]- Business (1) Additional Instructions: Patient Education Blepharitis Attestation Patient seen and evaluated by the physician process assistant. Attending physician was present in the emergency department and supervised care. This visit was performed by both the physician and an APC. I performed all aspects of the MDM as documented. This report was transcribed using voice recognition software. Every effort was made to ensure accuracy, however, inadvertently computerized band builder mistakes may be present. Appropriate healthcare PPE was used in evaluating this patient. The patient was placed in a mask. The healthcare provider was wearing mask, gloves, and utilizing proper hand hygiene. All equipment was properly cleansed. Problem List/Past Medical History Ongoing 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 Fibromyalgia Hypercholesterolemia Hypertension Hypothyroid Labyrinthitis Metabolic syndrome X Migraines Sleep disorder Historical No qualifying data Procedure/Surgical History Ablation, section, History of umbilical hernia surgery, Reconstruction of maxilla, Transplant. Medications Inpatient dexamethasone 4 mg Tab, 12 mg= 3 tab(s), Oral, Once Home erythromycin Opth 0.5% Oint, 1/4 inch ribbon, Eye-Right, BID metformin 500 mg Tab, 500 mg= 1 tab(s), Oral, Daily, 3 refills thyroid desiccated 97.5 mg oral tablet, 97.5 mg= 1 tab(s), Oral, Daily, 1 refills Allergies bisoprolol (Unknown) Social History Alcohol Substance Abuse Tobacco Never (less than 100 in lifetime) Tobacco Use:. Never Smokeless Tobacco Use:., 08/15/2022 Family History Family history is negative Lab Results No qualifying data available. Diagnostic Results No qualifying data available. Normal [facility] Comment on above: Result Comment: Elec tronically Signed By: Maxwell Rodriguez PA-C\.br\Date and Time Signed: 11/22/22 13:36 EDT\.br\Electronically Co-Signed By: Armaan Dillon M.D.\.br\Date and Time Co-Signed: 11/22/22 15:36 EDT ED Patient Education Noteon 11-22-2022 ED Patient Education Note Infectious Disease Blepharitis Blepharitis refers to inflammation of the eyelids. It is a common condition and can cause dryness or grittiness in the eyes. Other symptoms may include: ? Reddish, scaly skin around the scalp and eyebrows. ? Burning or itching of the eyelids. ? Eye discharge at night that causes the eyelashes to stick together in the morning. ? Eyelashes that fall out. ? Redness of the eyes. ? Sensitivity to light. Follow these instructions at home: Pay attention to any changes in how your eyes look or feel. Tell your health care provider about any changes. Follow these instructions to help with your condition. Keeping clean ? Wash your hands often with soap and water for at least 20 seconds. ? Clean your eyes and wash the edges of your eyelids with diluted baby shampoo or commercial eyelid wipes. Do this 2 or more times a day. ? Wash your face and eyebrows at least once a day. ? Use a clean towel each time you dry your eyelids. Do not use this towel to clean or dry other areas of your body. Do not share your towel with anyone. General instructions ? Avoid wearing makeup until you get better. Do not share makeup with anyone. ? Avoid rubbing your eyes. ? Use warm compresses on the eyes for 5?10 minutes. Do this 1 or 2 times a day, or as told by your health care provider. You can use warm water on a towel, but a microwaveable heating pad often stays warm longer. The pad should be very warm but not hot enough to burn the skin. ? If you were prescribed an antibiotic ointment or steroid drops, apply or use the medicine as told by your health care provider. Do not stop using the medicine even if you feel better. ? Keep all follow-up visits. This is important. Contact a health care provider if: ? Your eyelids feel hot. ? You have blisters or a rash on your eyelids. ? The inflammation gets worse or does not go away in 2?4 days. Get help right away if: ? You have pain or redness that gets worse or spreads to other parts of your face. ? Your vision changes. ? You have pain when looking at lights or moving objects. ? You have a fever. Summary ? Blepharitis refers to inflammation of the eyelids. It can cause dryness and grittiness in the eyes. ? Pay attention to any changes in how your eyes look or feel. Tell your health care provider about any changes. ? Follow home care instructions as told by your health care provider. Wash your hands often with soap and water for at least 20 seconds. Avoid wearing makeup. Do not rub your eyes. ? If you were prescribed an antibiotic ointment or steroid drops, apply or use the medicine as told by your health care provider. ? Get help right away if you have a fever, vision changes, pain or redness that gets worse or spreads to other parts of your face, or pain when looking at lights or moving objects. This information is not intended to replace advice given to you by your health care provider. Make sure you discuss any questions you have with your health care provider. Document Revised: 05/31/2021 Document Reviewed: 05/31/2021 Elsevier Patient Education ? 2022 [employer] Normal [facility] ED Patient Summaryon 023 ED Patient Summary (Inserted Image. Joslyn ble to display) [address] [address] Patient Discharge Instructions Person Information Name: ADRY CALDERON Age: 42 Years Arrival Date: 11/22/2022 12:46:49 Discharge Diagnosis: Blepharitis Primary Care Physician: NONE, XXXX Provider Information Primary Provider: Armaan Dillon M.D. Advanced Bingo Clerk:Maxewll Rodriguez PA-C The exam and treatment you received in the Emergency Department were for an urgent problem and are not intended as complete care. It is important that you follow up with a doctor, nurse practitioner, or physician?s process assistant for ongoing care. If your symptoms become worse or you do not improve as expected and you are unable to reach your usual health care provider, you should return to the Emergency Department. We are available 24 hours a day. ADRY CALDERON has been given the following list of patient education materials, prescriptions and follow-up instructions: Follow-up Instructions: With: Address: When: [place] [address] Business (1) In 3 days 11/25/2022 In the event that this physician does not participate in your insurance network, please consult with your insurance company to find a nearby participating provider. Patient Education Materials: Blepharitis A MESSAGE TO ALL PATIENTS REGARDING OPIOIDS PRESCRIPTION OPIOIDS: WHAT YOU NEED TO KNOW Prescription opioids can be used to help relieve jyqplejk-ya-bdtztb pain and are often prescribed following a surgery or injury, or for certain health conditions. These medications can be an important part of the treatment but also come with serious risks. It is important to work with your healthcare provider to make sure you are getting the safest, most effective care. WHAT ARE THE RISKS AND SIDE EFFECTS OF OPIOID USE? Prescription opioids carry serious risks of addiction and overdose, especially with prolonged use. An opioid overdose, often marked by slowed breathing, can cause sudden . The use of prescription opioids can have a number of side effects as well, even when taken as directed: ? Tolerance?meaning you might need to take more of the medication for the same pain relief ? Physical dependence?meaning you have symptoms of withdrawal when a medication is stopped ? Increased sensitivity to pain ? Constipation ? Nausea, vomiting, and dry mouth ? Sleepiness and dizziness ? Confusion ? Depression ? Low levels of testosterone that can result in lower sex drive, energy, and strength ? Itching and sweating RISKS ARE GREATER WITH: ? History of drug misuse, substance use disorder, or overdose ? Mental health conditions (such as depression or anxiety) ? Sleep apnea ? Older age (65 years and older) ? Avoid alcohol while taking prescription opioids. Also, unless specifically advised by your health care provider, medications to avoid include: ? Benzodiazepines (such as Xanax or Valium) ? Muscle relaxants (such as Soma or Flexeril) ? Hypnotics (such as Ambien or Lunesta) ? Other prescription opioids KNOW YOUR OPTIONS Talk to your health care provider about ways to manage your pain that don?t involve prescription opioids. Some of these options may actually work better and have fewer risks and side effects. Options may include: ? Pain relievers such as acetaminophen, ibuprofen, and naproxen ? Some medication that are also used for depression or seizures ? Physical therapy and exercise ? Cognitive behavioral therapy, a psychological, goal-directed approach, in which patients learn how to modify physical, behavioral, and emotional triggers of pain and stress. IF YOU ARE PRESCRIBED OPIOIDS FOR PAIN: ? Never take opioids in greater amounts or more often than prescribed. ? Follow up with your primary health care provider. o Work together to create a plan on how to manage your pain. o Talk about ways to help manage your pain that don?t involve prescription opioids. o Talk about any and all concerns and side effects. ? Help prevent misuse and abuse o Never sell or share prescription opioids. o Never use another person?s prescription opioids. ? Store prescription opioids in a secure place and out of reach of others (this may include visitors, children, friends, and family). ? Safely dispose of unused prescription opioids: Find your community drug take-back program or your pharmacy mail-back program, or flush them down the toilet, following guidance from the Food and Drug Administration (www.fda.gov/Drugs/Reso Patricku). ? Visit www.cdc.gov/drugoverdos e to learn about the risks of opioids abuse and overdose. ? If you believe you may be struggling with addiction, tell your health manager long term care and ask for guidance or call [facility]?S National Helpline at 8-633-884-TRSG. t Source: Department of [facility] and (more content not included)... Normal [facility] Prescriptions/Work Noteson 0 11-22-2022 Prescriptions/Work Notes [id number] CD:127 Normal [facility] Lab Reportson 08-22-2022 Lab Reports [id number] D:127 [facility] Lab Reports [id number] D:127 [facility] CBC AUTO DIFFon 08-20-2022 BASO # 0.0 103/ul Normal 0.0-0.1 [facility] Comment on above: Performed By: #### C BC #### [facility] [address] [place] [address] Dr. Serjio Samaniego Basophils/100 WBC (Bld) 0.4 % Normal 0.2-2.0 [facility] Comment on above: Performed By: #### C BC #### [facility] [address] [place] [address] Dr. Serjio Samaniego EO # 0.1 103/ul Normal 0.0-0.7 [facility] Comment on above: Performed By: #### C BC #### [facility] [address] [place] [address] Dr. Serjio Samaniego Eosinophils/100 WBC (Bld) 1.4 % Normal 0.9-7.0 [facility] Comment on above: Performed By: #### C BC #### [facility] [address] [place] [address] Dr. Serjio Samaniego Erythrocyte distribution width (RBC) [Ratio] 14.7 % Normal 11.0-15.0 [facility] Comment on above: Performed By: #### C BC #### [facility] [address] [place] [address] Dr. Serjio Samaniego Hematocrit (Bld) [Volume fraction] 35.3 % Critically low 36.0-48.0 [facility] Comment on above: Performed By: #### C BC #### [facility] [address] [place] [address] Dr. Serjio Samaniego Hemoglobin (Bld) [Mass/Vol] 11.0 g/dL Critically low 12.0-16.0 [facility] Comment on above: Performed By: #### C BC #### [facility] [address] [place] [address] Dr. Serjio Samaniego IG # 0.02 10e3/ul Normal 0.00-0.03 [facility] Comment on above: Performed By: #### C BC #### [facility] [address] [place] [address] Dr. Serjio Samaniego IG % 0.3 % Normal 0.0-0.5 [facility] Comment on above: Performed By: #### C BC #### [facility] [address] [place] [address] Dr. Serjio Samaniego LYMPH # 2.1 103/ul Normal 1.2-3.8 [facility] Comment on above: Performed By: #### C BC #### [facility] [address] [place] [address] Dr. Serjio Samaniego Lymphocytes/100 WBC (Bld) 28.0 % Normal 20.5-60.0 [facility] Comment on above: Performed By: #### C BC #### [facility] [address] [place] [address] Dr. Serjio Samaniego MANUAL DIFF REQ NO Normal [facility] Comment on above: Performed By: #### C BC #### [facility] [address] [place] [address] Dr. Serjio Samaniego MCH (RBC) [Entitic mass] 26.4 pg Critically low 26.7-34.0 [facility] Comment on above: Performed By: #### C BC #### [facility] [address] [place] [address] Dr. Serjio Samaniego MCHC (RBC) [Mass/Vol] 31.2 g/dL Normal 29.9-35.2 [facility] Comment on above: Performed By: #### C BC #### [facility] [address] [place] [address] Dr. Serjio Samaniego MCV (RBC) [Entitic vol] 84.7 fL Normal 81.0-99.0 [facility] Comment on above: Performed By: #### C BC #### [facility] [address] [place] [address] Dr. Serjio Samaniego MONO # 0.6 103/ul Normal 0.3-0.8 [facility] Comment on above: Performed By: #### C BC #### [facility] [address] [place] [address] Dr. Serjio Samaniego Monocytes/100 WBC (Bld) 7.8 % Normal 1.7-12.0 [facility] Comment on above: Performed By: #### C BC #### [facility] [address] [place] [address] Dr. Serjio Samaniego NEUT # 4.6 103/ul Normal 1.4-6.5 [facility] Comment on above: Performed By: #### C BC #### [facility] [address] [place] [address] Dr. Serjio Samaniego Neutrophils/100 WBC (Bld) 62.1 % Normal 43.0-75.0 [facility] Comment on above: Performed By: #### C BC #### [facility] [address] [place] [address] Dr. Serjio Samaniego Platelet mean volume (Bld) [Entitic vol] 9.3 fL Critically low 9.5-13.5 [facility] Comment on above: Performed By: #### C BC #### [facility] [address] [place] [address] Dr. Serjio Samaniego PLT 312 103/ul Normal 150-450 [facility] Comment on above: Performed By: #### C BC #### [facility] [address] [place] [address] Dr. Serjio Samaniego RBC 4.17 106/ul Critically low 4.20-5.40 [facility] Comment on above: Performed By: #### C BC #### [facility] [address] [place] [address] Dr. Serjio Samaniego WBC 7.4 103/ul Normal 4.0-11.0 [facility] Comment on above: Performed By: #### C BC #### [facility] [address] [place] [address] Dr. Serjio Samaniego FREE T3on 08-20-2022 FREE T3 5.08 pg/mlL Critically high 2.18-3.98 [facility] Comment on above: Performed By: #### F T3, TSH, LIPID, CMP #### [facility] [address] [place] [address] Dr. Serjio Samaniego FREE T4on 08-20-2022 Free T4 [Mass/Vol] 0.81 ng/dL Normal 0.76-1.46 [facility] Comment on above: Performed By: #### F T4 #### [facility] [address] [place] [address] Dr. Serjio Samaniego GLYCOHEMOGLOBIN A1Con 2022 ADA RECOMMENDATION SEE BELOW Normal [facility] Comment on above: Result Comment: ADA RECOMMENDED LIMIT 4.0 - 6.0 ADA THERAPEUTIC TARGET < 7.0 ACTION SUGGESTED > 7.0 Performed By: #### A 1C #### [facility] [address] [place] [address] Dr. Serjio Samaniego Glucose [Mass/Vol] 120 mg/dL Normal [facility] Comment on above: Performed By: #### A 1C #### [facility] [address] [address] [address] Serjio Samaniego HbA1c (Bld) [Mass fraction] 5.8 % Normal 4.5-6.2 [facility] Comment on above: Performed By: #### A 1C #### [facility] [address] [address] [address] Serjio Samaniego LIPID PROFILEon 08-20-2022 CHOL-HDL RATIO NORM SEE BELOW Normal [facility] Comment on above: Result Comment: 3.3 - 4.4 LOW RISK 4.4 - 7.1 AVERAGE RISK 7.1 - 11.0 MODERATE RISK >11.0 HIGH RISK Performed By: #### F T3, TSH, LIPID, CMP #### [facility] [address] [place] [address] Dr. Serjio Samaniego Cholesterol [Mass/Vol] 205 mg/dL Critically high <=200 [facility] Comment on above: Performed By: #### F T3, TSH, LIPID, CMP #### [facility] [address] [place] [address] Dr. Serjio Samaniego Cholesterol in HDL [Mass/Vol] 37 mg/dL Critically low 40-60 [facility] Comment on above: Performed By: #### F T3, TSH, LIPID, CMP #### [facility] [address] [place] [address] Dr. Serjio Samaniego Cholesterol in LDL [Mass/Vol] 141.0 mg/dL Normal [facility] Comment on above: Performed By: #### F T3, TSH, LIPID, CMP #### [facility] [address] [place] [address] Dr. Serjio Samaniego Cholesterol.total/Christine sterol in HDL [Mass ratio] 5.5 {ratio} Normal [facility] Comment on above: Performed By: #### F T3, TSH, LIPID, CMP #### [facility] [address] [place] [address] Dr. Serjio Samaniego HDL NORMAL > or = 60 mg/dl - LO W CARDIOVASCULAR RISK <40 mg/dl - HIGH CARDIOVASCULAR RISK Normal [facility] Comment on above: Performed By: #### F T3, TSH, LIPID, CMP #### [facility] [address] [address] [address] Serjio Samaniego LDL CALC NORMAL SEE BELOW Normal [facility] Comment on above: Result Comment: <100 mg/dl OPTIMAL 100 - 129 mg/dl NEAR OR ABOVE OPTIMAL 130 - 159 mg/dl BORDERLINE HIGH 160 - 189 mg/dl HIGH >190 mg/dl VERY HIGH Performed By: #### F T3, TSH, LIPID, CMP #### [facility] [address] [address] [address] Serjio Samaniego Triglyceride [Mass/Vol] 135 mg/dL Normal <=150 T [facility] Comment on above: Performed By: #### F T3, TSH, LIPID, CMP #### [facility] [address] [address] [address] Serjio Samaniego VLDL CALC 27.0 mg/dL Normal [facility] Comment on above: Performed By: #### F T3, TSH, LIPID, CMP #### [facility] [address] [address] [address] Serjio Samaniego PROF 14(COMP METB)on 023 Albumin [Mass/Vol] 3.7 g/dL Normal 3.4-5.0 [facility] Comment on above: Performed By: #### F T3, TSH, LIPID, CMP #### [facility] [address] [place] [address] Dr. Serjio Samaniego Albumin/Globulin [Mass ratio] 0.9 {ratio} Normal [facility] Comment on above: Performed By: #### F T3, TSH, LIPID, CMP #### [facility] [address] [address] [address] Serjio Samaniego ALP [Catalytic activity/Vol] 92 U/L Normal 46-116 [facility] Comment on above: Performed By: #### F T3, TSH, LIPID, CMP #### [facility] [address] [place] [address] Dr. Serjio Samaniego ALT [Catalytic activity/Vol] 21 U/L Normal 14-59 [facility] Comment on above: Performed By: #### F T3, TSH, LIPID, CMP #### [facility] [address] [address] [address] Serjio Samaniego Anion gap [Moles/Vol] 11.9 mmol/L Normal Th [facility] Comment on above: Performed By: #### F T3, TSH, LIPID, CMP #### [facility] [address] [address] [address] Serjio Samaniego AST [Catalytic activity/Vol] 9 U/L Critically low 15-37 [facility] Comment on above: Performed By: #### F T3, TSH, LIPID, CMP #### [facility] [address] [address] [address] Serjio Samaniego Bilirubin [Mass/Vol] 0.3 mg/dL Normal 0.2-1.0 [facility] Comment on above: Performed By: #### F T3, TSH, LIPID, CMP #### [facility] [address] [address] [address] Serjio Samaniego Calcium [Mass/Vol] 9.0 mg/dL Normal 8.5-10.1 [facility] Comment on above: Performed By: #### F T3, TSH, LIPID, CMP #### [facility] [address] [address] [address] Serjio Samaniego Chloride [Moles/Vol] 102 mmol/L Normal 98-107 [facility] Comment on above: Performed By: #### F T3, TSH, LIPID, CMP #### [facility] [address] [address] [address] Serjio Samaniego CO2 [Moles/Vol] 28.5 mmol/L Normal 21.0-32.0 [facility] Comment on above: Performed By: #### F T3, TSH, LIPID, CMP #### [facility] [address] [address] [address] Serjio Samaniego Creatinine [Mass/Vol] 0.62 mg/dL Normal 0.55-1.02 [facility] Comment on above: Performed By: #### F T3, TSH, LIPID, CMP #### [facility] [address] [address] [address] Serjio Samaniego EGFR-AF MONTSERRATIAN >60 Normal >=60 [facility] Comment on above: Performed By: #### F T3, TSH, LIPID, CMP #### [facility] [address] [place] [address] Dr. Serjio Samaniego EGFR-NON AF MONTSERRATIAN >60 Normal >=60 [facility] Comment on above: Performed By: #### F T3, TSH, LIPID, CMP #### [facility] [address] [place] [address] Dr. Serjio Samaniego Globulin (S) [Mass/Vol] 4.0 g/dL Normal [facility] Comment on above: Performed By: #### F T3, TSH, LIPID, CMP #### [facility] [address] [place] [address] Dr. Serjio Samaniego Glucose [Mass/Vol] 111 mg/dL Critically high 74-106 [facility] Comment on above: Performed By: #### F T3, TSH, LIPID, CMP #### [facility] [address] [place] [address] Dr. Serjio Samaniego Potassium [Moles/Vol] 4.4 mmol/L Normal 3.5-5.1 [facility] Comment on above: Performed By: #### F T3, TSH, LIPID, CMP #### [facility] [address] [place] [address] Dr. Serjio Samaniego Protein [Mass/Vol] 7.7 g/dL Normal 6.4-8.2 [facility] Comment on above: Performed By: #### F T3, TSH, LIPID, CMP #### [facility] [address] [place] [address] Dr. Serjio Samaniego Sodium [Moles/Vol] 138 mmol/L Normal 136-145 [facility] Comment on above: Performed By: #### F T3, TSH, LIPID, CMP #### [facility] [address] [place] [address] Dr. Serjio Samaniego Urea nitrogen [Mass/Vol] 7.0 mg/dL Normal 7.0-18.0 [facility] Comment on above: Performed By: #### F T3, TSH, LIPID, CMP #### [facility] [address], [place] [address] Dr. Serjio Samaniego Urea nitrogen/Creatinine [Mass ratio] 11.3 mg/mg Normal [facility] Comment on above: Performed By: #### F T3, TSH, LIPID, CMP #### [facility] [address], [place] [address] Dr. Serjio Samaniego TSHon 08-20-2022 TSH 0.053 uIU/mL Critically low 0.358-3.740 [facility] Comment on above: Performed By: #### F T3, TSH, LIPID, CMP #### [facility] [address], [place] [address] Dr. Serjio Samaniego Ambulatory Visit Summaryon 0 08-15-2022 Ambulatory Visit Summary ADRY CALDERON :1980 Visit Date:08/15/2022 Ambulatory Visit Instructions Your Diagnosis Class 1 obesity due to excess calories in adult Hypercholesterolemia Fibromyalgia Hypothyroid Metabolic syndrome X Your Care Team Attending Physician - VESNA ANAYA MD Primary Care Physician - VESNA ANAYA MD This Is Your Medications List metformin (metformin 500 mg Tab) thyroid desiccated (Logan Thyroid 120 mg Tab) Procedures Performed Ablation, section, History of umbilical hernia surgery, Reconstruction of maxilla, Transplant. Discharge Vitals Heart Rate (Peripheral) 76 Respiratory Rate 16 Blood Pressure 118/76 Height 170.18 cm Height 67 in Weight 103.3 kg Weight 227.26 lb BMI 35.67 Medications What How Much When Instructions Unchanged metformin (metformin 500 mg Tab) 1 Tablets By Mouth Every day Unchanged thyroid desiccated (Logan Thyroid 120 mg Tab) 1 Tablets By Mouth Every day Medications and Immunizations Administered Not Given SARS-CoV-2 mRNA (tozinameran 5y-11y) vac, Postpone due to refusal Allergies bisoprolol (Unknown) Problems Ongoing - Any problem that you are currently receiving treatment for. 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 Fibromyalgia Hypercholesterolemia Hypertension Hypothyroid Labyrinthitis Metabolic syndrome X Migraines Sleep disorder Normal [facility] Office/Clini c Noteon 08-15-2022 Family Medicine Office/Clinic Note Chief Complaint follow up thyroid HPI Staff follow up thyroid no refills needed Health maintenance: mammogram: hasn't ever had one needs one ordered pap/pelvic: none since pregnancies covid: refused ELI-0 History of Present Illness METABOLIC SYNDROME SKEEO DUSIRDER ANXIETY DISORDER FIBROMYALGIA HPOTHYROID MIGRAINES RIGHT BRACHIAL PLEXOPATHY WITH PALSY FROM . Review of Systems PHQ Score Initial Depression Screen Score: 0 Constitutional: no fever, no chills, no sweats, no weakness Skin: no Jaundice, no rash, no lesions, nopetechiae ENMT: no ear pain, no sore throat, no congestion, no hoarseness Respiratory: no shortness of breath, no cough, no orthopnea, no wheezing Cardiovascular: no chest pain, no palpitations, no edema Gastrointestinal: no nausea, no vomiting, no diarrhea, no GI bleeding Genitourinary: no dysuria, no hematuria, no discharge, no pain Musculoskeletal: no back pain, no trauma Neurologic: no headache, no dizziness, no numbness, RT HEMIPLEGIA Psychiatric: no sleeping problems, no irritability, no mood swings/depreRLEFT ssion. Additional ROS info: Except as noted in the above Review of Systems and in the History of Present Illness all other systems have been reviewed and are negative or noncontributory. Physical Exam Vitals & Measurements HR: 76(Peripheral) RR: 16 BP: 118/76 SpO2: 94% HT: 67 in HT: 170.18 cm WT: 103.3 kg WT: 227.26 lb BMI: 35.67 General: alert, no acute distress Skin: warm, dry Head: no trauma, normocephalic Neck: Trachea midline, no adenopathy, no tenderness Eye: normal conjunctiva, sclera clear ENMT: TM's clear, oral mucosa moist, no pharyngeal erythema or exudate Cardiovascular: regular rate and rhythm, normal peripheral perfusion Respiratory: Lungs CTA, respirations non labored Chest wall: no deformity. Gastrointestinal: soft, non distended, no tenderness, no guarding. Back: No tenderness, Normal ROM, Normal alignment. Extremities: no deformity, no trauma Neurological: oriented x 4, LOC appropriate for age, right HEMIPLEGIA Psychiatric: cooperative, affect appropriate for age, normal judgement, normal psychiatric thoughts. Assessment/Plan ED. ON DX PROCESSES. MEDS REVEIWED AND EXPLAINED. PREVENTIVE MEDICINE EXPLAINED. CHECK LABS AND CALL FOR RESULTS. DIET AND EXERCISE EXPLAINED. 1. Class 1 obesity due to excess calories in adult (E66.09: Other obesity due to excess calories) Ordered: CBC w/ Auto Diff Comprehensive Metabolic Panel Free T4 HgbA1c Lipid Panel T3 Free Thyroid Stimulating Hormone 2. Hypercholesterolemia (E78.00: Pure hypercholesterolemia, unspecified) Ordered: CBC w/ Auto Diff Comprehensive Metabolic Panel Free T4 HgbA1c Lipid Panel T3 Free Thyroid Stimulating Hormone 3. Fibromyalgia (M79.7: Fibromyalgia) Ordered: CBC w/ Auto Diff Comprehensive Metabolic Panel Free T4 HgbA1c Lipid Panel T3 Free Thyroid Stimulating Hormone 4. Hypothyroid (E03.9: Hypothyroidism, unspecified) Ordered: CBC w/ Auto Diff Comprehensive Metabolic Panel Free T4 HgbA1c Lipid Panel T3 Free Thyroid Stimulating Hormone 5. 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 Medications Logan Thyroid 120 mg Tab, 120 mg= 1 tab(s), Oral, Daily metformin 500 mg Tab, 500 mg= 1 tab(s), Oral, Daily Allergies bisoprolol (Unknown) Social History Tobacco Never (less than 100 in lifetime) Tobacco Use:. Never Smokeless Tobacco Use:., 08/15/2022 Family History Family history is negative Immunizations Vaccine Date Status Comments SARS-CoV-2 mRNA (saulo 5y-11y) vac - Not Given Postpone due to refusal measles/mumps/rubella virus vaccine 04/13/2022 Recorded hepatitis B adult vaccine 04/13/2022 Recorded measles/mumps/rubella virus vaccine 03/05/2022 Recorded hepatitis B adult vaccine 03/05/2022 Recorded Normal [facility] Comment on above: Result Comment: Elec tronically Signed By: [place] DURAN, VESNA Duval\Betobr\Date and Time Signed: 08/15/22 10:38 EDT CBC AUTO DIFFon 10-04-2021 BASO # 0.0 103/ul Normal 0.0-0.1 [facility] Comment on above: Performed By: #### C BC #### [facility] [address] [place] [address] Dr. Serjio Samaniego Basophils/100 WBC (Bld) 0.4 % Normal 0.2-2.0 [facility] Comment on above: Performed By: #### C BC #### [facility] [address] [place] [address] Dr. Serjio Samaniego EO # 0.1 103/ul Normal 0.0-0.7 [facility] Comment on above: Performed By: #### C BC #### [facility] [address] [place] [address] Dr. Serjio Samaniego Eosinophils/100 WBC (Bld) 1.1 % Normal 0.9-7.0 [facility] Comment on above: Performed By: #### C BC #### [facility] [address] [place] [address] Dr. Serjio Samaniego Erythrocyte distribution width (RBC) [Ratio] 14.1 % Normal 11.0-15.0 [facility] Comment on above: Performed By: #### C BC #### [facility] [address] [place] [address] Dr. Serjio Samaniego Hematocrit (Bld) [Volume fraction] 34.6 % Critically low 36.0-48.0 [facility] Comment on above: Performed By: #### C BC #### [facility] [address] [place] [address] Dr. Serjio Samaniego Hemoglobin (Bld) [Mass/Vol] 10.6 g/dL Critically low 12.0-16.0 [facility] Comment on above: Performed By: #### C BC #### [facility] [address] [place] [address] Dr. Serjio Samaniego IG # 0.03 10e3/ul Normal 0.00-0.03 [facility] Comment on above: Performed By: #### C BC #### [facility] [address] [place] [address] Dr. Serjio Samaniego IG % 0.4 % Normal 0.0-0.5 [facility] Comment on above: Performed By: #### C BC #### [facility] [address] [place] [address] Dr. Serjio Samaniego LYMPH # 2.4 103/ul Normal 1.2-3.8 [facility] Comment on above: Performed By: #### C BC #### [facility] [address] [place] [address] Dr. Serjio Samaniego Lymphocytes/100 WBC (Bld) 31.7 % Normal 20.5-60.0 [facility] Comment on above: Performed By: #### C BC #### [facility] [address] [place] [address] Dr. Serjio Samaniego MANUAL DIFF REQ NO Normal [facility] Comment on above: Performed By: #### C BC #### [facility] [address] [place] [address] Dr. Serjio Samaniego MCH (RBC) [Entitic mass] 27.7 pg Normal 26.7-34.0 [facility] Comment on above: Performed By: #### C BC #### [facility] [address] [place] [address] Dr. Serjio Samaniego MCHC (RBC) [Mass/Vol] 30.6 g/dL Normal 29.9-35.2 [facility] Comment on above: Performed By: #### C BC #### [facility] [address] [place] [address] Dr. Serjio Samaniego MCV (RBC) [Entitic vol] 90.6 fL Normal 81.0-99.0 [facility] Comment on above: Performed By: #### C BC #### [facility] [address] [place] [address] Dr. Serjio Samaniego MONO # 0.5 103/ul Normal 0.3-0.8 [facility] Comment on above: Performed By: #### C BC #### [facility] [address] [place] [address] Dr. Serjio Samaniego Monocytes/100 WBC (Bld) 6.8 % Normal 1.7-12.0 [facility] Comment on above: Performed By: #### C BC #### [facility] [address] [place] [address] Dr. Serjio Samaniego NEUT # 4.5 103/ul Normal 1.4-6.5 [facility] Comment on above: Performed By: #### C BC #### [facility] [address] [place] [address] Dr. Serjio Samaniego Neutrophils/100 WBC (Bld) 59.6 % Normal 43.0-75.0 [facility] Comment on above: Performed By: #### C BC #### [facility] [address] [place] [address] Dr. Serjio Samaniego Platelet mean volume (Bld) [Entitic vol] 9.6 fL Normal 9.5-13.5 [facility] Comment on above: Performed By: #### C BC #### [facility] [address] [place] [address] Dr. Serjio Samaniego PLT 349 103/ul Normal 150-450 [facility] Comment on above: Performed By: #### C BC #### [facility] [address] [place] [address] Dr. Serjio Samaniego RBC 3.82 106/ul Critically low 4.20-5.40 [facility] Comment on above: Performed By: #### C BC #### [facility] [address] [place] [address] Dr. Serjio Samaniego WBC 7.5 103/ul Normal 4.0-11.0 [facility] Comment on above: Performed By: #### C BC #### [facility] [address] [place] [address] Dr. Serjio Samaniego FREE T3on 10-04-2021 FREE T3 5.11 pg/mlL Critically high 2.18-3.98 [facility] Comment on above: Performed By: #### F T3, TSH, LIPID, CMP #### [facility] [address] [place] [address] Dr. Serjio Samaniego FREE T4on 10-04-2021 Free T4 [Mass/Vol] 0.88 ng/dL Normal 0.76-1.46 [facility] Comment on above: Performed By: #### F T4 #### [facility] [address] [place] [address] [address] Serjio Samaniego LIPID PROFILEon 10-04-2021 CHOL-HDL RATIO NORM SEE BELOW Normal [facility] Comment on above: Result Comment: 3.3 - 4.4 LOW RISK 4.4 - 7.1 AVERAGE RISK 7.1 - 11.0 MODERATE RISK >11.0 HIGH RISK Performed By: #### F T3, TSH, LIPID, CMP #### [facility] [address] [address] [address] Serjio Samaniego Cholesterol [Mass/Vol] 195 mg/dL Normal <=200 [facility] Comment on above: Performed By: #### F T3, TSH, LIPID, CMP #### [facility] [address] [place] [address] Dr. Serjio Samaniego Cholesterol in HDL [Mass/Vol] 32 mg/dL Critically low 40-60 [facility] Comment on above: Performed By: #### F T3, TSH, LIPID, CMP #### [facility] [address] [place] [address] Dr. Serjio Samaniego Cholesterol in LDL [Mass/Vol] 129.6 mg/dL Normal [facility] Comment on above: Performed By: #### F T3, TSH, LIPID, CMP #### [facility] [address] [place] [address] Dr. Serjio Samaniego Cholesterol.total/Christine sterol in HDL [Mass ratio] 6.1 {ratio} Normal [facility] Comment on above: Performed By: #### F T3, TSH, LIPID, CMP #### [facility] [address] [place] [address] Dr. Serjio Samaniego HDL NORMAL > or = 60 mg/dl - LO W CARDIOVASCULAR RISK <40 mg/dl - HIGH CARDIOVASCULAR RISK Normal [facility] Comment on above: Performed By: #### F T3, TSH, LIPID, CMP #### [facility] [address] [place] [address] Dr. Serjio Samaniego LDL CALC NORMAL SEE BELOW Normal [facility] Comment on above: Result Comment: <100 mg/dl OPTIMAL 100 - 129 mg/dl NEAR OR ABOVE OPTIMAL 130 - 159 mg/dl BORDERLINE HIGH 160 - 189 mg/dl HIGH >190 mg/dl VERY HIGH Performed By: #### F T3, TSH, LIPID, CMP #### [facility] [address] [address] [address] Serjio Samaniego Triglyceride [Mass/Vol] 167 mg/dL Critically high <=150 [facility] Comment on above: Performed By: #### F T3, TSH, LIPID, CMP #### [facility] [address] [address] [address] Serjio Samaniego VLDL CALC 33.4 mg/dL Normal [facility] Comment on above: Performed By: #### F T3, TSH, LIPID, CMP #### [facility] [address] [address] [address] Serjio Samaniego PROF 14(COMP METB)on 022 Albumin [Mass/Vol] 3.9 g/dL Normal 3.4-5.0 [facility] Comment on above: Performed By: #### F T3, TSH, LIPID, CMP #### [facility] [address] [place] [address] Dr. Serjio Samaniego Albumin/Globulin [Mass ratio] 1.0 {ratio} Normal [facility] Comment on above: Performed By: #### F T3, TSH, LIPID, CMP #### [facility] [address] [place] [address] Dr. Serjio Samaniego ALP [Catalytic activity/Vol] 105 U/L Normal 46-116 [facility] Comment on above: Performed By: #### F T3, TSH, LIPID, CMP #### [facility] [address] [place] [address] Dr. Serjio Samaniego ALT [Catalytic activity/Vol] 29 U/L Normal 14-59 [facility] Comment on above: Performed By: #### F T3, TSH, LIPID, CMP #### [facility] [address] [place] [address] Dr. Serjio Samaniego Anion gap [Moles/Vol] 12.4 mmol/L Normal [facility] Comment on above: Performed By: #### F T3, TSH, LIPID, CMP #### [facility] [address] [address] [address] Serjio Samaniego AST [Catalytic activity/Vol] 15 U/L Normal 15-37 [facility] Comment on above: Performed By: #### F T3, TSH, LIPID, CMP #### [facility] [address] [address] [address] Serjio Samaniego Bilirubin [Mass/Vol] 0.5 mg/dL Normal 0.2-1.0 [facility] Comment on above: Performed By: #### F T3, TSH, LIPID, CMP #### [facility] [address] [address] [address] Serjio Samaniego Calcium [Mass/Vol] 8.7 mg/dL Normal 8.5-10.1 [facility] Comment on above: Performed By: #### F T3, TSH, LIPID, CMP #### [facility] [address] [place] [address] Dr. Serjio Samaniego Chloride [Moles/Vol] 101 mmol/L Normal 98-107 [facility] Comment on above: Performed By: #### F T3, TSH, LIPID, CMP #### [facility] [address] [address] [address] Serjio Samaniego CO2 [Moles/Vol] 28.4 mmol/L Normal 21.0-32.0 [facility] Comment on above: Performed By: #### F T3, TSH, LIPID, CMP #### [facility] [address] [address] [address] Serjio Samaniego Creatinine [Mass/Vol] 0.64 mg/dL Normal 0.55-1.02 [facility] Comment on above: Performed By: #### F T3, TSH, LIPID, CMP #### [facility] [address] [place] [address] Dr. Serjio Samaniego EGFR-AF MONTSERRATIAN >60 Normal >=60 [facility] Comment on above: Performed By: #### F T3, TSH, LIPID, CMP #### [facility] [address] [address] [address] Serjio Samaniego EGFR-NON AF MONTSERRATIAN >60 Normal >=60 [facility] Comment on above: Performed By: #### F T3, TSH, LIPID, CMP #### [facility] [address] [address] [address] Serjio Samaniego Globulin (S) [Mass/Vol] 3.8 g/dL Normal [facility] Comment on above: Performed By: #### F T3, TSH, LIPID, CMP #### [facility] [address] [address] [address] Serjio Samaniego Glucose [Mass/Vol] 99 mg/dL Normal 74-106 [facility] Comment on above: Performed By: #### F T3, TSH, LIPID, CMP #### [facility] [address] [address] [address] Serjio Samaniego Potassium [Moles/Vol] 3.8 mmol/L Normal 3.5-5.1 [facility] Comment on above: Performed By: #### F T3, TSH, LIPID, CMP #### [facility] [address] [place] [address] Dr. Serjio Samaniego Protein [Mass/Vol] 7.7 g/dL Normal 6.4-8.2 [facility] Comment on above: Performed By: #### F T3, TSH, LIPID, CMP #### [facility] [address] [place] [address] Dr. Serjio Samaniego Sodium [Moles/Vol] 138 mmol/L Normal 136-145 [facility] Comment on above: Performed By: #### F T3, TSH, LIPID, CMP #### [facility] [address] [address] [address] Serjio Samaniego Urea nitrogen [Mass/Vol] 10.0 mg/dL Normal 7.0-18.0 [facility] Comment on above: Performed By: #### F T3, TSH, LIPID, CMP #### [facility] [address] [place] [address] Dr. Serjio Samaniego Urea nitrogen/Creatinine [Mass ratio] 15.6 mg/mg Normal [facility] Comment on above: Performed By: #### F T3, TSH, LIPID, CMP #### [facility] [address] [address] [address] Serjio Samaniego TSHon 10-04-2021 TSH 0.137 uIU/mL Critically low 0.358-3.740 [facility] Comment on above: Performed By: #### F T3, TSH, LIPID, CMP #### [facility] [address] [address] [address] Serjio Samaniego TSH RANGE SEE BELOW Normal [facility] Comment on above: Result Comment: <0.3 4 UIU/ml HYPERTHYROID 0.34-5.60 UIU/ml EUTHYROID >5.60 UIU/ml HYPOTHYROID Performed By: #### F T3, TSH, LIPID, CMP #### [facility] [address] [address] [address] Serjio Samaniego Vital Signs Date Time Vital Sign Value Performing Clinician Facility 08-26-2024 13:05-0400 Body height 170.18 cm Lorrie Soriano APRN Work Phone: [facility] 08-26-2024 13:05-0400 Body mass index (BMI) [Ratio] 34.7 kg/m2 Lorrie Soriano APRN Work Phone: [facility] 08-26-2024 13:05-0400 Body temperature 97.7 [degF] Lorrie Soriano APRN Work Phone: [facility] 08-26-2024 13:05-0400 Body weight 100.69 kg Lorrie Soriano APRN Work Phone: [facility] 08-26-2024 13:05-0400 Diastolic blood pressure 78 mm[Hg] Lorrie Soriano APRN Work Phone: [facility] 08-26-2024 13:05-0400 Heart rate 93 /min Lorrie Soriano APRN Work Phone: [facility] 08-26-2024 13:05-0400 SaO2% (BldA) [Mass fraction] 96 % Lorrie Soriano APRN Work Phone: [facility] 08-26-2024 13:05-0400 Systolic blood pressure 130 mm[Hg] Lorrie Soriano APRN Work Phone: [facility] 04-23-2023 13:00-0500 Body height 170.18 cm Lorrie Soriano Other [facility] Other 04-23-2023 13:00-0500 Body mass index (BMI) [Ratio] 35.24 kg/m2 Lorrie Soriano Other [facility] Other 04-23-2023 13:00-0500 Body weight 102.06 kg Lorrie Soriano Other [facility] Other 04-23-2023 13:00-0500 Diastolic blood pressure 88 mm[Hg] Lorrie Soriano Other [facility] Other 04-23-2023 13:00-0500 SaO2% (BldA) [Mass fraction] 97 % Lorrie Soriano Other [facility] Other 04-23-2023 13:00-0500 Systolic blood pressure 152 mm[Hg] Lorrie Soriano Other [facility] Other Encounters Encounter Date Encounter Type Care Provider Facility Start: 08-26-2024 End: 08-26-2024 ambulatory Lorrie Soriano APRN Work Phone: [facility] Work Phone: Start: 08-26-2024 End: 08-26-2024 Patient encounter procedure Lorrie Soriano APRN [facility] Work Phone: Start: 08-24-2024 Non-patient / Non-visit Lorrie Bo BROACH GRINDER Work Phone: [facility] Work Phone: Start: 08-24-2024 End: 08-24-2024 Patient encounter procedure Lorrie Bo BROACH GRINDER Work Phone: [facility] [place] Work Phone: Start: 08-24-2024 End: 08-24-2024 ambulatory Lorrie Soriano Facility:[facility] Start: 08-21-2024 Non-patient / Non-visit Lorrie Bo BROACH GRINDER Work Phone: [facility] Work Phone: Start: 08-20-2024 Non-patient / Non-visit Lorrie Bo BROACH GRINDER Work Phone: [facility] Work Phone: Start: 04-23-2023 End: 04-23-2023 ambulatory Lorrie Bo Other [facility] Other Start: 04-23-2023 Office outpatient ne w 30 minutes Lorrie Soriano [facility] Start: 12-27-2022 End: 12-28-2022 ambulatory Cynthia L Valdez [place] [place]: 12-27-2022 End: 12-27-2022 Lab Drop off Cynthia L Valdez [facility] Start: 11-22-2022 End: 11-22-2022 Emergency department patient visit Armaan Dillon [place] [place]: 08-20-2022 End: 08-21-[address] VESNA ANAYA . Facility: Start: 08-15-2022 End: 08-16-2022 ambulatory VESNA ANAYA Facility:[facility] [place] [facility] Start: 08-02-2022 ambulatory VESNA ANAYA [facility] Start: 07-20-2022 ambulatory VESNA ANAYA [facility] Start: 12-07-2021 End: 12-08-[address] EVSNA ANAYA . Facility:[facility] Start: 12-04-2021 End: 12-05-[address] VESNA ANAYA . Facility:[facility] Start: 10-04-2021 End: 10-05-[address] VESNA ANAYA . Facility:[facility] Procedures Date Procedure Procedure Detail Performing Clinician section Cynthia Valdez Comment on above: X 2 Destructive procedure Cynthia S chwab Comment on above: PSVT 2009 History of repair of umbilical hernia Cynthia Valdez Reconstruction of maxilla Vika di Valdez Comment on above: upper jaw Transplant (body structure) Cynthia Valdez Comment on above: muscle and nerves fr om leg to right side of the face Immunizations Immunization Date Immunization Notes Care Provider Fa [facility] 04-13-2022 hepatitis B vaccine, adult dosage [facility] 04-13-2022 measles, mumps and rubella virus vaccine [facility]dez [facility] 03-05-2022 hepatitis B vaccine, adult dosage Cynthia Valdez [facility] 03-05-2022 measles, mumps and rubella virus vaccine Cynthia Valdez [facility] NEGATED: Highlighted row has not occurred!08-15-2022 SARS-CoV-2 mRNA (tozinameran 5y-11y) vaccine Cynthia Valdez [facility] [place] Payers Date Payer Category Payer Self-pay 2024 Unknown [id number] 2016 Medicare [id number] 1980 Unknown [id number] 2.16.84 [id number] 1978 Unknown [id number] 2.16.84 [id number] 1978 Unknown [id number] 2.16.84 [id number] 1978 Unknown [id number] 2.16.84 [id number] 1978 Unknown [id number] 2.16.8 [id number] 1978 Unknown [id number] 2.16.8 [id number] 1978 Unknown [id number] 2.16.8 [id number] 1978 Unknown [id number] 2.16.8 [id number] 1978 Unknown [id number] 2.16.8 [id number] 1978 Unknown [id number] 2.16.8 [id number] 1959 Medicaid [id number] 1961 Medicare [id number] Medicaid Medicaid [id number] [facility] [id number] Unknown [id number] 2.16.8 [id number] Social History Date Type Detail Facility Start: 12-27-2022 End: 04-21-2024 Tobacco smoking status Never smoked tobacco (finding) [facility] Tobacco smoking status Never [facility] Sex Assigned At Female [facility] Start: 08-25-2024 End: 08-26-2024 Sex Female (finding) [facility] Start: 1980 Sex Assigned At Female [facility] Evaluation note 04-23-2023 Note Date & Type Note Facility 04-23-2023 Evaluation note Encounter Date Diagnosis Assessment Notes Apr, Acquired hypothyroidism (ICD-10 - E03.9) Asymptomatic at this time, Denies any unexplained weight change, hair loss or fatigue. Patient to continue with above medication and we will continue to monitor through routine blood work Apr, Impaired fasting glucose (ICD-10 - R73.01) Dx of IFG discussed as well as the risk of progression to to DMII. Tx options reviewed - ADA diet, regular aerobic exercise (150 min weekly) with f/u in 6 months. Goal of A1C <6 % and FBG <100 discussed Apr, Elevated blood pressure reading (ICD-10 - R03.0) BP reading was high in clinic. Pt is asymptomatic. Reviewed warning s/s that require immediate eval via ER. Recommended lifestyle changes, including dec salt intake and caffeine and f/u. Monitor at home the rest of the week and call on Saturday to determine if we need blood pressure medicaiton. [facility] Other Evaluation + Plan note 12-27-2022 Note Date & Type Note Facility 12-27-2022 Evaluation + Plan note Diagnostic Tests PendingT3 Free 12/27/22 [facility] Clinical Note 12-05-2021 Note Date & Type Note Facility 12-05-2021 Note PROCEDURE: XR HAND R T MIN 3V HISTORY: Pain in right hand ; third digit pain and swelling COMPARISON: None. FINDINGS: BONES:No fracture, acute abnormality, or significant arthropathy. SOFT TISSUES:Soft tissue swelling. No radiopaque foreign body. EFFUSION:None visible. OTHER: Negative. IMPRESSION: 1. Soft tissue swelling of third digits of uncertain etiology. 2. No suspicious bone abnormality or radiopaque foreign body. Electronically authenticated by: RANDALL BLEVINS Date: 2021-12-05 07:49 [facility] Evaluation note Note Date & Type Note Facility Evaluation note No assessment information availa [facility] Work Phone: Evaluation note Note Date & Type Note Facility Evaluation note Diagnosis Onset Date Resolution Syncope acute August 26 1:01pm [facility] Work Phone: History general Narrative - Reported Note Date & Type Note Facility History general Narrative - Reported Type Medical History Scoliosis Medical History Anxiety Medical History Depression Medical History Hypertension Medical History Tachycardia Medical History facial palsy Medical History Brachial plexus disorders Medical History Thyroid disease Surgical History ablasion Surgical History facial cosmetic surgery Surgical History x2 Surgical History Hernia Repair Hospitalization History see above [facility] Other Hospital course Narrative Note Date & Type Note Facility Hospital course Narrative No data available for this section [facility] Hospital Discharge instructions Note Date & Type Note Facility Hospital Discharge instructions No data available for this section [facility] Progress note Note Date & Type Note Facility Progress note No data available for this section [facility] Summary Purpose Family History Relationship Condition Age at Onset Recorded Date/T ivette mother Hypertension Unknown Advance Directives Advance Directive Response Recorded Date/ Time Advance Directives No April 11:08am Chief Complaint and Reason for Visit Chief Complaint Admit Date E07.9, Z87.442, R10.2, R10.9 August 24, 2024 10:27am Amb Documentation August 24, 2024 11: 38am Chief Complaint Admit Date E07.9, Z87.442, R10.2, R10.9 August 24, 2024 10:27am Amb Documentation August 24, 2024 11: 38am [facility]; syncope August 26, 2024 1:0 1pm Reason for Visit Admit Date Syncope August 26, 2024 1:0 1pm Additional Source Comments INFORMATION SOURCE (unrecogn ized section and content) DATE CREATED AUTHOR 08/26/2022 [facility] DATE CREATED AUTHOR AUTHOR'S ORGANIZ ATION 01/05/2023 [facility] DATE CREATED AUTHOR AUTHOR'S ORGANIZ ATION 08/25/2024 [facility] Patient Care team informatio n (unrecognized section and content) Team Status: Active Member Role Status Dates Lorrie Soriano APRN AGRICULTURAL PILOT-C Primary Care Provider Active Team Status: Active Member Role Status Dates Vesna Anaya MD Primary Care Provider Active S tart: August 20, 2024 Lorrie Soriano APRN AGRICULTURAL PILOT-C Attending Provider Act salma Start: August 20, 2024 Team Status: Active Member Role Status Dates Vesna Anaya MD Primary Care Provider Active S tart: August 21, 2024 Lorrie Soirano APRN AGRICULTURAL PILOTTalisha Attending Provider Act salma Start: August 21, 2024 Team Status: Inactive Member Role Status Dates Lorrie Soriano APRN AGRICULTURAL PILOT-Bunny Primary Care Provider, Attending Provider Active Start: August 24, 2024 End: August 24, 2024 Team Status: Active Member Role Status Dates Lorrie Soriano APRN AGRICULTURAL PILOT-C Primary Care Provider Active Start: August 24, 2024 Laura Darby CMA Attending Provider Active Start: August 24, 2024 Team Status: Inactive Member Role Status Dates Lorrie Soriano APRN AGRICULTURAL PILOT-C Primary Care Provider, Attending Provider Active Start: August 26, 2024 End: August 26, 2024 REASON FOR VISIT (unrecogniz ed section and content) establish Goals (unrecognized section and content) Goals may be documented in a n alternate section FOR RECORDS PERTAINING TO PATIENTS WHO ARE OR HAVE BEEN ENROLLED IN A CHEMICAL DEPENDENCY/SUBSTANCEABUSE PROGRAM, SOME INFORMATION MAY BE OMITTED. This clinical summary was aggregated from multiple sources. Caution should be exercised in using it in the provision of clinical care. This summary normalizes information from multiple sources, and as a consequence, information in this document may materially change the coding, format and clinical context of patient data. In addition, data may be omitted in some cases. CLINICAL DECISIONS SHOULD BE BASED ON THE PRIMARY CLINICAL RECORDS. [employer] [facility]. provides no warranty or guarantee of the accuracy or completeness of information in this document.
== END 2024-08-21 17:41 | disposition home or self-care (01) ==
LOC: ER 18:50 → MS 08-21 15:38
PROVIDERS: Registered Nurse; Admitting Provider Family Medicine; Emergency Provider Emergency Medicine; PCP Nurse Practitioner Family; Visit Provider Family Medicine
DX: J06.9 Acute upper respiratory infection, unspecified (principal); I21.A1 Myocardial infarction type 2; B97.89 Other viral agents as the cause of diseases classified elsewhere; E03.9 Hypothyroidism, unspecified; E86.0 Dehydration; R55 Syncope and collapse; R03.0 Elevated blood-pressure reading, without diagnosis of hypertension; G80.9 Cerebral palsy, unspecified; Z79.890 Hormone replacement therapy; Z87.891 Personal history of nicotine dependence; Z82.49 Family history of ischemic heart disease and other diseases of the circulatory system; Z79.84 Long term (current) use of oral hypoglycemic drugs; Z20.828 Contact with and (suspected) exposure to other viral communicable diseases; Z86.79 Personal history of other diseases of the circulatory system; Z23 Encounter for immunization
CPT/HCPCS: 36415; 71275; 80048; 80053; 80061; 80307; 83036; 83735; 83880; 84439; 84443; 84484; 84703; 85025; 87070; 87077; 87804; 87811; 87880; 93005; 93270; 93306; 93880; 94761; 96360; 96372; 99285; G0378; J1650; J3475; Q9967

== ENCOUNTER 2025-01-08 10:36 | Outpatient (OUT) | payer BC, SELFPAY ==
--- OUTSIDE RECORDS SUMMARY | 2025-01-08 10:42 | XMS_ITS | CCD ---
Author Organization [facility]iniS[facility] Care Team Providers Care Second Cook And Baker Name Role Phone [place] ., DR VESNA [...] Care Unavailable Cynthia Kellogg Primary Care Physician VESNA ANAYA Attending Unavailable ANAYAVESNA SIFUENTES Attending Unavailable Cynthia Kellogg Attending Unavailable Cynthia Kellogg Admitting Unavailable ValdezCynthia mitchell Attending Unavailable Armaan Dillon Attending Unavailable Lorrie Soriano Unavailable Rohrbacher Lorrie OROURKE Primary Care Provider Rohrbacher MINER PICKLorrie Moise Attending Provider Rohrbacher MINER PICK, Lorrie Primary Care Provider Rohrbacher HAVEN, Lorrie Attending Provider [phone] Lorrie Soriano Attending Unavailable AlexandriarbacherLorrie Primary Care Unavailable AlexandriarbacherLorrie Admitting Unavailable Rohrbacher, Lorrie Admitting Unavailable AlexandriarbacherLorrie Attending Unavailable Lorrie Soriano Primary Care Unavailable Allergies Allergy Classification Reported Allergen(s) Allergy Type Date of Onset Reaction(s) Facility (2 sources) Bisoprolol; Translations: [bisoprolol] Drug Allergy Unknown (qualifier value) [facility] Medications Current Medications Medication Drug Class(es) [...] Refills(s) 0 Start Date: 12/27/22 Status: Ordered amoxicillin 875 mg / clavulanate 125 mg oral tablet (2 sources) Penicillin-class Antibacterial Start: 01-05-2025 take 1 tablet by mouth twice daily carvedilol 3.125 mg oral tablet (5 sources) alpha-Adrenergic Alanis, beta-Adrenergic Alanis Start: 08-26-2024 End: 09-25-2024 take 1 tablet by mouth twice daily at mealtime Thyroid (Pork) ([place] Thyroid) 90 mg tablet (4 sources) Start: 07-27-2024 take 1 tablet by mouth once daily Thyroid (Pork) ([place] Thyroid) 90 mg tablet Active 90 MG PO Daily July 27, 2024 7:46am Start: 05-26-2024 End: 07-27-2024 take 1 tablet by mouth once daily Thyroid (Pork) ([place] Thyroid) 90 mg tablet Discontinued 90 MG PO Daily May 26, 2024 1:00am July 27, 2024 7:47am thyroid (assisted) 90 mg oral tab let (12 sources) Start: 11-30-2024 take 1 tablet by venkata th once daily Start: 05-26-2024 End: 11-30-2024 take 1 tablet by mouth once daily Thyroid (Pork) ([place] Thyroid) 90 mg tablet Discontinued 90 MG PO Daily September 28, 2024 12:13pm November 30, 2024 9:10pm Start: 01-17-2024 End: 05-26-2024 take 1 tablet by mouth once daily Thyroid (Pork) (Adthyza) 97.5 mg tablet Discontinued 97.5 MG PO Daily 90 January 17, 2024 10:16am May 26, 2024 4:39pm Completed/Discontinued Medications Medication Drug Class(es) Dates Sig (Normalized) Sig (Original) Ketorolac (2 sources) Nonsteroidal Anti-inflammatory Drug, Cyclooxygenase Inhibitor Start: 08-16-2017 Toradol per 15 mg Aug, 30 mg Start: 03-15-2017 Toradol per 15 mg Mar, 30 mg metFORMIN hydrochloride 500 mg oral tablet (16 sources) Biguanide Start: 01-27-2024 End: 12-29-2024 take 1 tablet by mouth once daily at mealtime Metformin 500 mg tablet Discontinued 0 .ROUTE .COMPLEX June 23, 2024 2:53pm December 29, 2024 4:15pm TAKE 1 TABLET BY MOUTH EVERY DAY [...] day(s), # 90 tab(s), Refills(s) 3, Pharmacy: [facility]/pharmacy #[id number], 170.2, cm, 08/15/22 10:06:00 EDT, Height/Length Dosing, 103.3, kg, 08/15/22 10:06:00 EDT, Weight Dosing Start Date: 09/05/22 Stop Date: 08/31/23 Status: Ordered Thyroid (Pork) (Adthyza) 97.5 mg tablet (4 [...] Problem Date Documented Date Episodic/Chronic Abdominal pain (8 sources) Pain in pelvis; Translations: [Pelvic and perineal pain] 04-21-2024 Episodic Adjustment disorders (1 source) Adjustment disorder 08-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 Anxiety disorders (1 source) Anxiety 08-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 Asthma (1 source) Allergic asthma without status asthmaticus 08-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 Calculus of urinary tract (4 sources) History of calculus of kidney; Translations: [Personal history of urinary calculi] 04-21-2024 Episodic Conditions associated with dizziness or vertigo (1 source) Labyrinthitis 08-13-2022 Episodic Diabetes mellitus without complication (1 source) Impaired fasting glucose Episodic Disorders of lipid metabolism (2 sources) Pure hypercholesterolemia , unspecified; Translations: [Hypercholesterolemi a] Onset: 08-26-2022 08-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 Essential hypertension (5 sources) Hypertensive disorder; Translations: [Essential (primary) hypertension] 08-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 Headache; including migraine (1 source) Migraine 08-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 Malaise and fatigue (3 sources) Other fatigue; Translations: [Fatigue] Onset: 10-10-2021 01-05-2025 Episodic Other circulatory disease (1 source) Elevated blood-pressure reading, without diagnosis of hypertension Episodic Other connective tissue disease (4 sources) Fibromyalgia; Translations: [FIBROMYALGIA] Onset: 08-20-2022 Episodic Other connective tissue disease (1 source) Fibromyalgia 08-13-2022 Episodic Other nervous system disorders (1 source) Brachial plexus disorder 08-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 Comment on above: with palsy from tyler ibarra Other nutritional; endocrine; and metabolic disorders (1 source) Other obesity due to excess calories; Translations: [OTHER OBESITY D/T EXCESS CALORIES] Onset: 08-26-2022 Chronic Other nutritional; endocrine; and metabolic disorders (5 sources) Metabolic syndrome; Translations: [METABOLIC SYNDROME] Onset: 10-04-2021 Chronic Other nutritional; endocrine; and metabolic disorders (1 source) Metabolic syndrome X 08-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 Other screening for suspected conditions (not mental disorders or infectious disease) (4 sources) Patient encounter status; Translations: [Encounter for screening for malignant neoplasm of colon] 01-05-2025 Episodic Residual codes; unclassified (1 source) Sleep disorder 08-13-2022 Episodic Spondylosis; intervertebral disc disorders; other back problems (2 sources) Lumbago co-occurrent with right-side sciatica; Translations: [Lumbago with sciatica, right side] Episodic Syncope (4 sources) Syncope; Translations: [Syncope and collapse] 08-26-2024 Episodic Thyroid disorders (10 sources) Hypothyroidism, unspecified; Translations: [Hypothyroidism] Onset: 08-26-2022 08-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 Unclassified (1 source) ANKYLOSIS OTHER SPECIFIED JOINT; Translations: [ANKYLOSIS OTHER SPECIFIED JOINT] Onset: 12-13-2021 Unclassified (4 sources) Patient encounter status; Translations: [Z12.11 - Encounter for screening for malignant neoplasm of colon] Viral infection (2 sources) Viral disease; Translations: [Viral infection, unspecified] 08-27-2024 Episodic Past or Other Problems Problem Classification Problem Date Documented Da te Episodic/Chronic Other connective tissue disease (4 sources) Impingement syndrome of unspecified shoulder; Translations: [IMPINGEMENT SYNDROME UNS SHOULDER] Onset: 12-07-2021 Episodic Other connective tissue disease (4 sources) Pain in right finger(s); Translations: [PAIN IN RIGHT FINGERS] Onset: 12-04-2021 Episodic Other connective tissue disease (1 source) Pain in right hand; Translations: [PAIN IN RIGHT HAND] Onset: 12-05-2021 Episodic Thyroid disorders (5 sources) Disorder of thyroid gland; Translations: [Disorder of thyroid, unspecified] Onset: 08-24-2024 04-21-2024 Episodic Results Test Name Value Interpretation Reference Range Facility Alanine aminotransferase [En zymatic activity/volume] in Serum or PlasmaOrdered By: Lorrie Soriano on 01-05-2025 ALT [Catalytic activity/Vol] 13 U/L Normal 7-52 [facility] Comment on above: Performed By: #### L IPID, FE PRO, TSH3 wRFLX, CBC, CMP #### [facility] [address] [place] [address] Albumin [Mass/volume] in Ser um or Plasma by Bromocresol green (BCG) dye binding methoOrdered By: Lorrie Soriano on 01-05-2025 Albumin BCG dye [Mass/Vol] 4.6 g/dL 3.5-5.7 [facility] Alkaline phosphatase [Enzyma tic activity/volume] in Serum or PlasmaOrdered By: Lorrie Soriano on 01-05-2025 ALP [Catalytic activity/Vol] 86 U/L Normal 34-104 [facility] Comment on above: Performed By: #### L IPID, FE PRO, TSH3 wRFLX, CBC, CMP #### [address] Aspartate aminotransferase [ Enzymatic activity/volume] in Serum or PlasmaOrdered By: Lorrie Soriano on 01-05-2025 AST [Catalytic activity/Vol] 13 U/L Normal 13-39 [facility] Comment on above: Performed By: #### L IPID, FE PRO, TSH3 wRFLX, CBC, CMP #### [place] [address] [place] Basophils [#/volume] in Bloo d by Automated countOrdered By: Lorrie Soriano on 01-05-2025 Basophils (Bld) [#/Vol] 0.0 10*3/uL Normal 0.0-0.2 [facility] Comment on above: Result Comment: PERF ORMED BY: [place] [address] PATHOLOGIST [employer]ATIONS ADVISER MICHAELA VILLEGAS M.D. Performed By: #### L IPID, FE PRO, TSH3 wRFLX, CBC, CMP #### [facility] [address] [place] [address] [place] Basophils/100 leukocytes in Blood by Automated countOrdered By: Lorrie Soriano on 01-05-2025 Basophils/100 WBC (Bld) 0.6 % Normal . [facility] Comment on above: Performed By: #### L IPID, FE PRO, TSH3 wRFLX, CBC, CMP #### [facility] [address] Bilirubin.total [Mass/volume ] in Serum or PlasmaOrdered By: Lorrie Soriano on 01-05-2025 Bilirubin [Mass/Vol] 0.4 mg/dL Normal 0.3-1.0 [facility] Comment on above: Performed By: #### L IPID, FE PRO, TSH3 wRFLX, CBC, CMP #### [facility] [address] [place] [address] [place] Calcium [Mass/volume] in Ser um or PlasmaOrdered By: Lorrie Soriano on 01-05-2025 Calcium [Mass/Vol] 9.6 mg/dL Normal 8.6-10.3 [facility] Comment on above: Performed By: #### L IPID, FE PRO, TSH3 wRFLX, CBC, CMP #### [facility] [address] [place] [address] Carbon dioxide, total [Moles /volume] in Serum or PlasmaOrdered By: Lorrie Soriano on 01-05-2025 CO2 [Moles/Vol] 32.7 mmol/L High 21.0-31.0 [facility] Comment on above: Performed By: #### L IPID, FE PRO, TSH3 wRFLX, CBC, CMP #### [facility] [address] [place] [address] [place] Chloride [Moles/volume] in S [place] or PlasmaOrdered By: Lorrie Soriano on 01-05-2025 Chloride [Moles/Vol] 101 mmol/L Normal 98-107 [facility] Comment on above: Performed By: #### L IPID, FE PRO, TSH3 wRFLX, CBC, CMP #### [facility] [address] Cholesterol [Mass/volume] in Serum or PlasmaOrdered By: Lorrie Soriano on 01-05-2025 Cholesterol [Mass/Vol] 247 mg/dL High 140-200 [facility] Comment on above: Chol less than 200 m g/dl low riskChol 201-239 mg/dl borderline riskChol 240 mg/dl and greater high risk Result Comment: Chol less than 200 mg/dl low risk Chol 201-239 mg/dl borderline risk Chol 240 mg/dl and greater high risk Performed By: #### L IPID, FE PRO, TSH3 wRFLX, CBC, CMP #### [facility] [address] [place] [address] [facility] Cholesterol in HDL [Mass/vol ume] in Serum or PlasmaOrdered By: Lorrie Soriano on 01-05-2025 Cholesterol in HDL [Mass/Vol] 39 mg/dL Normal 23-92 [facility] Comment on above: HDL CHOL ATP-III CLA SSIFICATION Cardiovascular RiskHDL > or equal to 60 mg/dL LOWHDL < 40 mg/dL HIGH Result Comment: HDL CHOL ATP-III CLASSIFICATION Cardiovascular Risk HDL > or equal to 60 mg/dL LOW HDL < 40 mg/dL HIGH Performed By: #### L IPID, FE PRO, TSH3 wRFLX, CBC, CMP #### [facility] [address] [place] [address] [place] Cholesterol in LDL Calc [Mas s/Vol]Ordered By: Lorrie Soriano on 01-05-2025 Cholesterol in LDL [Mass/Vol] 148 mg/dL High 0-100 [facility] Comment on above: LDL ATP III CLASSIFI CATIONLDL less than 100 mg/dL OptimalLDL 100-129 mg/dL Near or above optimalLDL 130-159 mg/dL Borderline highLDL 160-189 mg/dL HighLDL greater than 189 mg/dL Very high Cholesterol in VLDL Calc [Ma ss/Vol]Ordered By: Lorrie Soriano on 01-05-2025 Cholesterol in VLDL [Mass/Vol] 60 mg/dL [facility] Complete Blood Count Auto Di ffon 01-05-2025 Mean Corpuscular HGB Conc 31.5 g/dL Low 32.0-35.0 [facility] Comment on above: Performed By: #### L IPID, FE PRO, TSH3 wRFLX, CBC, CMP #### [facility] [address] [place] [id number] [place] NRBC% 0.1 /100{WBC} Normal 0-0.5 [facility] Comment on above: Performed By: #### L IPID, FE PRO, TSH3 wRFLX, CBC, CMP #### [address] White Blood Count 7.7 [CFU]/mL Normal 3.8-11.6 [facility] Comment on above: Performed By: #### L IPID, FE PRO, TSH3 wRFLX, CBC, CMP #### [address] Comprehensive Metabolic Pane kayla 01-05-2025 Albumin [Mass/Vol] 4.6 g/dL Normal 3.5-5.7 [facility] Comment on above: Performed By: #### L IPID, FE PRO, TSH3 wRFLX, CBC, CMP #### [address] GFR/1.73 sq M.predicted MDRD (S/P/Bld) [Vol rate/Area] mL/min/{1.73_m2} Normal [facility] Comment on above: Performed By: #### L IPID, FE PRO, TSH3 wRFLX, CBC, CMP #### [address] Creatinine [Mass/volume] in Serum or PlasmaOrdered By: Lorrie Soriano on 01-05-2025 Creatinine [Mass/Vol] 0.66 mg/dL Normal 0.60-1.20 [facility] Comment on above: Performed By: #### L IPID, FE PRO, TSH3 wRFLX, CBC, CMP #### [address] Eosinophils [#/volume] in Bl ood by Automated countOrdered By: Lorrie Soriano on 01-05-2025 Eosinophils (Bld) [#/Vol] 0.2 10*3/uL Normal 0.0-0.45 [facility] Comment on above: Performed By: #### L IPID, FE PRO, TSH3 wRFLX, CBC, CMP #### [place] [address] [place] Eosinophils/100 leukocytes i n Blood by Automated countOrdered By: Lorrie Soriano on 01-05-2025 Eosinophils/100 WBC (Bld) 2.0 % Normal . [facility] Comment on above: Performed By: #### L IPID, FE PRO, TSH3 wRFLX, CBC, CMP #### [address] Erythrocyte distribution wid th [Ratio] by Automated countOrdered By: Lorrie Soriano on 01-05-2025 Erythrocyte distribution width (RBC) [Ratio] 17.1 % High 11.9-15.3 [facility] Comment on above: Performed By: #### L IPID, FE PRO, TSH3 wRFLX, CBC, CMP #### [address] Erythrocytes [#/volume] in B lood by Automated countOrdered By: Lorrie Soriano on 01-05-2025 RBC (Bld) [#/Vol] 4.33 10*6/uL Normal 3.60-5.00 [facility] Comment on above: Performed By: #### L IPID, FE PRO, TSH3 wRFLX, CBC, CMP #### [address] FE PROon 01-05-2025 % Iron Saturation 11.0 % Low 20-50 [facility] Comment on above: Performed By: #### L IPID, FE PRO, TSH3 wRFLX, CBC, CMP #### [address] Total Iron Binding Capacity 489 ug/dL High 255-450 [facility] Comment on above: Performed By: #### L IPID, FE PRO, TSH3 wRFLX, CBC, CMP #### [place] [address] [place] Ferritin [Mass/volume] in Se rum or PlasmaOrdered By: Lorrie Soriano on 01-05-2025 Ferritin [Mass/Vol] 3.9 ng/mL Low 11.0-306.8 [facility] Comment on above: Performed By: #### L IPID, FE PRO, TSH3 wRFLX, CBC, CMP #### [address] Glomerular filtration rate [ Volume Rate/Area] in Serum, Plasma or Blood by CreatinineOrdered By: Lorrie Soriano on 01-05-2025 Glomerular filtration rate [Volume Rate/Area] in Serum, Plasma or Blood by Creatinine > 60.0 mL/Min [facility] Glucose [Mass/volume] in Ser um or PlasmaOrdered By: Lorrie Soriano on 01-05-2025 Glucose [Mass/Vol] 83 mg/dL Normal 70-100 [facility] Comment on above: ADA recommended refe rence rangeRandom Glucose Reference Range is dependent on time and content of last meal. Glucose of more than 200 mg/dL in a nonstressed, ambulatory subject supports the diagnosis of Diabetes Mellitus. Result Comment: [place] om Glucose Reference Range is dependent on time and content of last meal. Glucose of more than 200 mg/dL in a nonstressed, ambulatory subject supports the diagnosis of Diabetes Mellitus. ADA recommended reference range Performed By: #### L IPID, FE PRO, TSH3 wRFLX, CBC, CMP #### [address] Hematocrit [Volume Fraction] of Blood by Automated countOrdered By: Lorrie Soriano on 01-05-2025 Hematocrit (Bld) [Volume fraction] 34.7 % Normal 34.0-46.4 [facility] Comment on above: Performed By: #### L IPID, FE PRO, TSH3 wRFLX, CBC, CMP #### [facility] [address] [place] [address] [place] Hemoglobin [Mass/volume] in BloodOrdered By: Lorrie Soriano on 01-05-2025 Hemoglobin (Bld) [Mass/Vol] 10.9 g/dL Low 11.8-15.4 [facility] Comment on above: Performed By: #### L IPID, FE PRO, TSH3 wRFLX, CBC, CMP #### [facility] [address] Iron [Mass/volume] in Serum or PlasmaOrdered By: Lorrie Soriano on 01-05-2025 Iron [Mass/Vol] 54 ug/dL Normal 50-212 [facility] Comment on above: Performed By: #### L IPID, FE PRO, TSH3 wRFLX, CBC, CMP #### [facility] [address] Leukocytes [#/volume] correc tripp for nucleated erythrocytes in Blood by Automated counOrdered By: Lorrie Soriano on 01-05-2025 WBC corrected for nucl RBC Auto (Bld) [#/Vol] 7.7 10*3/uL 3.8-11.6 [facility] Leukocytes [#/volume] in Blo od by Automated countOrdered By: Lorrie Soriano on 01-05-2025 WBC (Bld) [#/Vol] 7.7 10*3/uL Normal 3.8-11.6 [facility] Comment on above: Performed By: #### L IPID, FE PRO, TSH3 wRFLX, CBC, CMP #### [address] Lipid Panelon 01-05-2025 LDL Cholesterol,Calculated 148 mg/dL High 0-100 [facility] Comment on above: Result Comment: LDL ATP III CLASSIFICATION LDL less than 100 mg/dL Optimal LDL 100-129 mg/dL Near or above optimal LDL 130-159 mg/dL Borderline high LDL 160-189 mg/dL High LDL greater than 189 mg/dL Very high Performed By: #### L IPID, FE PRO, TSH3 wRFLX, CBC, CMP #### [facility] [address] Triglyceride w/Reflex 302 mg/dL High 0-149 [facility] Comment on above: Result Comment: TRIG ATP III CLASSIFICATION TRIG less than 150 mg/dL Normal TRIG 150-199 mg/dL Borderline high TRIG 200-500 mg/dL High TRIG greater than 500 mg/dL Very high Standard traceable to the Center for Disease Conrtrol and Prevention (CDC) test method. Performed By: #### L IPID, FE PRO, TSH3 wRFLX, CBC, CMP #### [address] VLDL CHOLESTEROL 60 mg/dL Normal [facility] Comment on above: Performed By: #### L IPID, FE PRO, TSH3 wRFLX, CBC, CMP #### [address] Lymphocytes [#/volume] in Bl ood by Automated countOrdered By: Lorrie Soriano on 01-05-2025 Lymphocytes (Bld) [#/Vol] 2.2 10*3/uL Normal 1.00-4.8 [facility] Comment on above: Performed By: #### L IPID, FE PRO, TSH3 wRFLX, CBC, CMP #### [address] Lymphocytes/100 leukocytes i n Blood by Automated countOrdered By: Lorrie Soriano on 01-05-2025 Lymphocytes/100 WBC (Bld) 28.2 % Normal . [facility] Comment on above: Performed By: #### L IPID, FE PRO, TSH3 wRFLX, CBC, CMP #### [address] MCH [Entitic mass] by Automa tripp countOrdered By: Lorrie Soriano on 01-05-2025 MCH (RBC) [Entitic mass] 25.2 pg Normal 24.7-34.3 [facility] Comment on above: Performed By: #### L IPID, FE PRO, TSH3 wRFLX, CBC, CMP #### [address] MCHC Auto (RBC) [Mass/Vol]Or dered By: Lorrie Soriano on 01-05-2025 MCHC (RBC) [Mass/Vol] 31.5 g/dL Low 32.0-35.0 [facility] MCV [Entitic volume] by Auto mated countOrdered By: Lorrie Soriano on 01-05-2025 MCV (RBC) [Entitic vol] 80.1 fL Normal 80-[address] [facility] Comment on above: Performed By: #### L IPID, FE PRO, TSH3 wRFLX, CBC, CMP #### [address] Monocytes [#/volume] in Bloo d by Automated countOrdered By: Lorrie Soriano on 01-05-2025 Monocytes (Bld) [#/Vol] 0.7 10*3/uL Normal 0.0-0.8 [facility] Comment on above: Performed By: #### L IPID, FE PRO, TSH3 wRFLX, CBC, CMP #### [place] [address] [place] Monocytes/100 leukocytes in Blood by Automated countOrdered By: Lorrie Soriano on 01-05-2025 Monocytes/100 WBC (Bld) 9.7 % Normal . [facility] Comment on above: Performed By: #### L IPID, FE PRO, TSH3 wRFLX, CBC, CMP #### [place] [address] [place] Neutrophils [#/volume] in Bl ood by Automated countOrdered By: Lorrie Soriano on 01-05-2025 Neutrophils (Bld) [#/Vol] 4.6 10*3/uL Normal 1.8-7.7 [facility] Comment on above: Performed By: #### L IPID, FE PRO, TSH3 wRFLX, CBC, CMP #### [place] [address] [place] Neutrophils/100 leukocytes i n Blood by Automated countOrdered By: Lorrie Soriano on 01-05-2025 Neutrophils/100 WBC (Bld) 59.5 % Normal . [facility] Comment on above: Performed By: #### L IPID, FE PRO, TSH3 wRFLX, CBC, CMP #### [address] No Panel InformationOrdered By: Lorrie Soriano on 01-05-2025 Pharmacy Creatinine Clearance (Chem N/A [facility] Nucleated erythrocytes [Pres ence] in Blood by Automated countOrdered By: Lorrie Soriano on 01-05-2025 Nucleated RBC Auto Ql (Bld) 0.1 /100{WBC} 0-0.5 [facility] Platelet mean volume [Entiti c volume] in Blood by Automated countOrdered By: Lorrie Soriano on 01-05-2025 Platelet mean volume (Bld) [Entitic vol] 8.3 fL Normal 6.3-10.7 [facility] Comment on above: Performed By: #### L IPID, FE PRO, TSH3 wRFLX, CBC, CMP #### [facility] [address] [place] [address] [place] Platelets [#/volume] in Bloo d by Automated countOrdered By: Lorrie Soriano on 01-05-2025 Platelets (Bld) [#/Vol] 351 10*3/uL Normal 150-450 [facility] Comment on above: Performed By: #### L IPID, FE PRO, TSH3 wRFLX, CBC, CMP #### [facility] [address] [place] [address] [place] Potassium [Moles/volume] in Serum or PlasmaOrdered By: Lorrie Soriano on 01-05-2025 Potassium [Moles/Vol] 4.9 mmol/L Normal 3.5-5.1 [facility] Comment on above: Performed By: #### L IPID, FE PRO, TSH3 wRFLX, CBC, CMP #### [facility] [address] [place] [address] [place] Protein [Mass/volume] in Ser um or PlasmaOrdered By: Lorrie Soriano on 01-05-2025 Protein [Mass/Vol] 7.5 g/dL Normal 6.4-8.9 [facility] Comment on above: Performed By: #### L IPID, FE PRO, TSH3 wRFLX, CBC, CMP #### [facility] [address] [place] [address] Serum globulin measurement b y calculation (mass/volume)Ordered By: Lorrie Soriano on 01-05-2025 Globulin (S) [Mass/Vol] 2.9 g/dL Normal [facility] Comment on above: Performed By: #### L IPID, FE PRO, TSH3 wRFLX, CBC, CMP #### [facility] [address] [place] [address] Serum or plasma albumin/glob ulin mass ratioOrdered By: Lorrie Soriano on 01-05-2025 Albumin/Globulin [Mass ratio] 1.6 {ratio} Normal [facility] Comment on above: Performed By: #### L IPID, FE PRO, TSH3 wRFLX, CBC, CMP #### [facility] [address] [place] [address] Serum or plasma anion gap de terminationOrdered By: Lorrie Soriano on 01-05-2025 Anion gap [Moles/Vol] 9.2 mmol/L Normal 6.0-15.0 [facility] Comment on above: Performed By: #### L IPID, FE PRO, TSH3 wRFLX, CBC, CMP #### [facility] [address] [place] [address] Serum or plasma iron binding capacity measurement (mass/volume)Ordered By: Lorrie Soriano on 01-05-2025 Iron binding capacity [Mass/Vol] 489 ug/dL High 255-450 [facility] Serum or plasma iron saturat ion measurement (mass fraction)Ordered By: Lorrie Soriano on 01-05-2025 Iron saturation [Mass fraction] 11.0 % Low 20-50 [facility] Serum or plasma total choles terol/high density lipoprotein (HDL) cholesterol mass ratOrdered By: Lorrie Soriano on 01-05-2025 Cholesterol.total/Christine sterol in HDL [Mass ratio] 6.3 {ratio} Normal <5.0 [facility] Comment on above: Performed By: #### L IPID, FE PRO, TSH3 wRFLX, CBC, CMP #### [facility] [address] Sodium [Moles/volume] in Ser um or PlasmaOrdered By: Lorrie Soriano on 01-05-2025 Sodium [Moles/Vol] 138 mmol/L Normal 136-145 [facility] Comment on above: Performed By: #### L IPID, FE PRO, TSH3 wRFLX, CBC, CMP #### [address] Thyroid Stim Hormone w/Rflxo n 01-05-2025 Thyroid Stim Hormone w/Rflx 1.07 u[iU]/mL Normal 0.45-5.33 [facility] Comment on above: Result Comment: PERF ORMED BY: [place] [address] PATHOLOGIST RACE RELATIONS ADVISER MICHAELA VILLEGAS M.D. Performed By: #### L IPID, FE PRO, TSH3 wRFLX, CBC, CMP #### [address] Thyrotropin [Units/volume] i n Serum or PlasmaOrdered By: Lorrie Soriano on 01-05-2025 TSH Qn 1.07 m[IU]/L 0.45-5.33 [facility] Transferrin [Mass/volume] in Serum or PlasmaOrdered By: Lorrie Soriano on 01-05-2025 Transferrin [Mass/Vol] 349 mg/dL Normal 203-362 [facility] Comment on above: Performed By: #### L IPID, FE PRO, TSH3 wRFLX, CBC, CMP #### [address] Triglyceride [Mass/volume] i n Serum or PlasmaOrdered By: Lorrie Soriano on 01-05-2025 Triglyceride [Mass/Vol] 302 mg/dL High 0-149 [facility] Comment on above: TRIG ATP III CLASSIF ICATIONTRIG less than 150 mg/dL NormalTRIG 150-199 mg/dL Borderline highTRIG 200-500 mg/dL High TRIG greater than 500 mg/dL Very highStandard traceable to the Center for Disease Conrtrol and Prevention (CDC) test method. Urea nitrogen [Mass/volume] in Serum or PlasmaOrdered By: Lorrie Soriano on 01-05-2025 Urea nitrogen [Mass/Vol] 9 mg/dL Normal 12-04 [facility] Comment on above: Performed By: #### L IPID, FE PRO, TSH3 wRFLX, CBC, CMP #### [facility] [address] Alanine aminotransferase [En zymatic activity/volume] in Serum or PlasmaOrdered By: Lorrie Soriano on 08-24-2024 ALT [Catalytic activity/Vol] Alanine aminotransferase [Enzymatic activity/volume] in Serum or Plasma [facility] Albumin [Mass/volume] in Ser um or Plasma by Bromocresol green (BCG) dye binding methoOrdered By: Lorrie Soriano on 08-24-2024 Albumin BCG dye [Mass/Vol] Albumin [Mass/volume] in Serum or Plasma by Bromocresol green (BCG) dye binding metho 3.5-5.7 [facility] Alkaline phosphatase [Enzyma tic activity/volume] in Serum or PlasmaOrdered By: Lorrie Soriano on 08-24-2024 ALP [Catalytic activity/Vol] Alkaline phosphatase [Enzymatic activity/volume] in Serum or Plasma 34-104 [facility] Aspartate aminotransferase [ Enzymatic activity/volume] in Serum or PlasmaOrdered By: Lorrie Soriano on 08-24-2024 AST [Catalytic activity/Vol] Aspartate aminotransferase [Enzymatic activity/volume] in Serum or Plasma Low 13-39 [facility] Basophils Auto (Bld) [#/Vol] Ordered By: Lorrie Soriano on 08-24-2024 Basophils (Bld) [#/Vol] Automated basoph il count 0.0-0.2 [facility] Basophils/100 WBC Auto (Bld) Ordered By: Lorrie Soriano on 08-24-2024 Basophils/100 WBC (Bld) Automated basophil % . [facility] Bilirubin.total [Mass/volume ] in Serum or PlasmaOrdered By: Lorrie Soriano on 08-24-2024 Bilirubin [Mass/Vol] Bilirubin.total [Mass/volume] in Serum or Plasma 0.3-1.0 [facility] Calcium [Mass/volume] in Ser um or PlasmaOrdered By: Lorrie Soriano on 08-24-2024 Calcium [Mass/Vol] Calcium [Mass/volume ] in Serum or Plasma 8.6-10.3 [facility] Carbon dioxide, total [Moles /volume] in Serum or PlasmaOrdered By: Lorrie Soriano on 08-24-2024 CO2 [Moles/Vol] Carbon dioxide, tota l [Moles/volume] in Serum or Plasma High 21.0-31.0 [facility] Chloride [Moles/volume] in [place] or PlasmaOrdered By: Lorrie Soriano on 08-24-2024 Chloride [Moles/Vol] Chloride [Moles/vol ume] in Serum or Plasma 98-107 [facility] Complete Blood Count Auto Di ffon 08-24-2024 Basophils (Bld) [#/Vol] 0.0 10*3/uL Normal 0.0-0.2 [facility] Comment on above: Result Comment: PERF ORMED BY: [place] [address] PATHOLOGIST RACE RELATIONS ADVISER SHERRON MAJOR M.D. Performed By: #### C BC, TSH3 wRFLX, CMP #### [facility] [address] [place] [address] [place] Basophils/100 WBC (Bld) 0.6 % Normal . Ghada billy [facility] Comment on above: Performed By: #### C BC, TSH3 wRFLX, CMP #### [facility] [address] [place] [id number] [place] Eosinophils (Bld) [#/Vol] 0.2 10*3/uL Normal 0.0-0.45 [facility] Comment on above: Performed By: #### C BC, TSH3 wRFLX, CMP #### [facility] [address] [place] [address] [place] Eosinophils/100 WBC (Bld) 1.9 % Normal . [facility] Comment on above: Performed By: #### C BC, TSH3 wRFLX, CMP #### [address] Erythrocyte distribution width (RBC) [Ratio] 17.8 % High 11.9-15.3 [facility] Comment on above: Performed By: #### C BC, TSH3 wRFLX, CMP #### [address] Hematocrit (Bld) [Volume fraction] 30.7 % Low 34.0-46.4 [facility] Comment on above: Performed By: #### C BC, TSH3 wRFLX, CMP #### [address] Hemoglobin (Bld) [Mass/Vol] 9.5 g/dL Low 11.8-15.4 [facility] Comment on above: Performed By: #### C BC, TSH3 wRFLX, CMP #### [address] Lymphocytes (Bld) [#/Vol] 2.4 10*3/uL Normal 1.00-4.8 [facility] Comment on above: Performed By: #### C BC, TSH3 wRFLX, CMP #### [address] Lymphocytes/100 WBC (Bld) 28.8 % Normal . [facility] Comment on above: Performed By: #### C BC, TSH3 wRFLX, CMP #### [address] MCH (RBC) [Entitic mass] 24.3 pg Low 24.7-34.3 [facility] Comment on above: Performed By: #### C BC, TSH3 wRFLX, CMP #### [address] MCV (RBC) [Entitic vol] 78.5 fL Low 80-100 [facility] Comment on above: Performed By: #### C BC, TSH3 wRFLX, CMP #### [address] Mean Corpuscular HGB Conc 30.9 g/dL Low 32.0-35.0 [facility] Comment on above: Performed By: #### C BC, TSH3 wRFLX, CMP #### [address] Monocytes (Bld) [#/Vol] 0.6 10*3/uL Normal 0.0-0.8 [facility] Comment on above: Performed By: #### C BC, TSH3 wRFLX, CMP #### [address] Monocytes/100 WBC (Bld) 7.2 % Normal . [facility] Comment on above: Performed By: #### C BC, TSH3 wRFLX, CMP #### [address] Neutrophils (Bld) [#/Vol] 5.2 10*3/uL Normal 1.8-7.7 [facility] Comment on above: Performed By: #### C BC, TSH3 wRFLX, CMP #### [place] [address] [place] Neutrophils/100 WBC (Bld) 61.5 % Normal . [facility] Comment on above: Performed By: #### C BC, TSH3 wRFLX, CMP #### [place] [address] [place] NRBC% 0.1 /100{WBC} Normal 0-0.5 [facility] Comment on above: Performed By: #### C BC, TSH3 wRFLX, CMP #### [place] [address] [place] Platelet mean volume (Bld) [Entitic vol] 8.1 fL Normal 6.3-10.7 [facility] Comment on above: Performed By: #### C BC, TSH3 wRFLX, CMP #### [place] [address] [place] Platelets (Bld) [#/Vol] 384 10*3/uL Normal 150-450 [facility] Comment on above: Performed By: #### C BC, TSH3 wRFLX, CMP #### [address] RBC (Bld) [#/Vol] 3.91 10*6/uL Normal 3.60-5.00 [facility] Comment on above: Performed By: #### C BC, TSH3 wRFLX, CMP #### [address] WBC (Bld) [#/Vol] 8.4 10*3/uL Normal 3.8-11.6 [facility] Comment on above: Performed By: #### C BC, TSH3 wRFLX, CMP #### [address] Comprehensive Metabolic Pane kayla 08-24-2024 Albumin [Mass/Vol] 4.2 g/dL Normal 3.5-5.7 [facility] Comment on above: Performed By: #### C BC, TSH3 wRFLX, CMP #### [address] Albumin/Globulin [Mass ratio] 1.4 {ratio} Normal [facility] Comment on above: Performed By: #### C BC, TSH3 wRFLX, CMP #### [address] ALP [Catalytic activity/Vol] 79 U/L Normal 34-104 [facility] Comment on above: Performed By: #### C BC, TSH3 wRFLX, CMP #### [address] ALT [Catalytic activity/Vol] 13 U/L Normal 7-52 [facility] Comment on above: Performed By: #### C BC, TSH3 wRFLX, CMP #### [address] Anion gap [Moles/Vol] 8.9 mmol/L Normal 6.0-15.0 [facility] Comment on above: Performed By: #### C BC, TSH3 wRFLX, CMP #### [address] AST [Catalytic activity/Vol] 11 U/L Low 13-39 [facility] Comment on above: Performed By: #### C BC, TSH3 wRFLX, CMP #### [address] Bilirubin [Mass/Vol] 0.3 mg/dL Normal 0.3-1.0 [facility] Comment on above: Performed By: #### C BC, TSH3 wRFLX, CMP #### [address] Calcium [Mass/Vol] 9.3 mg/dL Normal 8.6-10.3 [facility] Comment on above: Performed By: #### C BC, TSH3 wRFLX, CMP #### [address] Chloride [Moles/Vol] 104 mmol/L Normal 98-107 [facility] Comment on above: Performed By: #### C BC, TSH3 wRFLX, CMP #### [address] CO2 [Moles/Vol] 31.6 mmol/L High 21.0-31.0 [facility] Comment on above: Performed By: #### C BC, TSH3 wRFLX, CMP #### [place] [address] [place] Creatinine [Mass/Vol] 0.54 mg/dL Low 0.60-1.20 [facility] Comment on above: Performed By: #### C BC, TSH3 wRFLX, CMP #### [place] [address] [place] GFR/1.73 sq M.predicted MDRD (S/P/Bld) [Vol rate/Area] mL/min/{1.73_m2} Normal [facility] Comment on above: Performed By: #### C BC, TSH3 wRFLX, CMP #### [address] [place] [address] [place] Globulin (S) [Mass/Vol] 3.0 g/dL Normal T he [facility] Comment on above: Performed By: #### C BC, TSH3 wRFLX, CMP #### [address] Glucose [Mass/Vol] 92 mg/dL Normal 70-100 [facility] Comment on above: Result Comment: [place] Glucose Reference Range is dependent on time and content of last meal. Glucose of more than 200 mg/dL in a nonstressed, ambulatory subject supports the diagnosis of Diabetes Mellitus. ADA recommended reference range Performed By: #### C BC, TSH3 wRFLX, CMP #### [address] Potassium [Moles/Vol] 4.5 mmol/L Normal 3.5-5.1 [facility] Comment on above: Performed By: #### C RIAZ, TSH3 wRFLX, CMP #### [address] Protein [Mass/Vol] 7.2 g/dL Normal 6.4-8.9 [facility] Comment on above: Performed By: #### C BC, TSH3 wRFLX, CMP #### [address] Sodium [Moles/Vol] 140 mmol/L Normal 136-145 [facility] Comment on above: Performed By: #### C BC, TSH3 wRFLX, CMP #### [address] Urea nitrogen [Mass/Vol] 8 mg/dL Normal 7-25 [facility] Comment on above: Performed By: #### C BC, TSH3 wRFLX, CMP #### [place] [address] [place] Creatinine [Mass/volume] in Serum or PlasmaOrdered By: Lorrie Soriano on 08-24-2024 Creatinine [Mass/Vol] Creatinine [Mass/volume] in Serum or Plasma Low 0.60-1.20 [facility] Eosinophils Auto (Bld) [#/Vo l]Ordered By: Lorrie Soriano on 08-24-2024 Eosinophils (Bld) [#/Vol] Automated eosinophil count 0.0-0.45 [facility] Eosinophils/100 WBC Auto (Bl d)Ordered By: Lorrie Soriano on 08-24-2024 Eosinophils/100 WBC (Bld) Automated eosinophil % . [facility] Erythrocyte distribution wid th Auto (RBC) [Ratio]Ordered By: Lorrie Soriano on 08-24-2024 Erythrocyte distribution width (RBC) [Ratio] Erythrocyte distribution width [Ratio] by Automated count High 11.9-15.3 [facility] Globulin Calc (S) [Mass/Vol] Ordered By: Lorrie Soriano on 08-24-2024 Globulin (S) [Mass/Vol] Serum globulin measurement by calculation (mass/volume) [facility] Glucose [Mass/volume] in Ser um or PlasmaOrdered By: Lorrie Soriano on 08-24-2024 Glucose [Mass/Vol] Glucose [Mass/volume ] in Serum or Plasma 70-100 [facility] Comment on above: ADA recommended refe rence rangeRandom Glucose Reference Range is dependent on time and content of last meal. Glucose of more than 200 mg/dL in a nonstressed, ambulatory subject supports the diagnosis of Diabetes Mellitus. Hematocrit Auto (Bld) [Volum e fraction]Ordered By: Lorrie Soriano on 08-24-2024 Hematocrit (Bld) [Volume fraction] Hematocrit [Volume Fraction] of Blood by Automated count Low 34.0-46.4 [facility] Hemoglobin [Mass/volume] in BloodOrdered By: Lorrie Soriano on 08-24-2024 Hemoglobin (Bld) [Mass/Vol] Hemoglobin [Mass/volume] in Blood Low 11.8-15.4 [facility] Leukocytes [#/volume] correc tripp for nucleated erythrocytes in Blood by Automated counOrdered By: Lorrie Soriano on 08-24-2024 WBC corrected for nucl RBC Auto (Bld) [#/Vol] Leukocytes [#/volume] corrected for nucleated erythrocytes in Blood by Automated coun 3.8-11.6 [facility] Lymphocytes Auto (Bld) [#/Vo l]Ordered By: Lorrie Soriano on 08-24-2024 Lymphocytes (Bld) [#/Vol] Lymphocytes [#/volume] in Blood by Automated count 1.00-4.8 [facility] Lymphocytes/100 WBC Auto (Bl d)Ordered By: Lorrie Soriano on 08-24-2024 Lymphocytes/100 WBC (Bld) Lymphocytes/100 leukocytes in Blood by Automated count . [facility] MCH Auto (RBC) [Entitic mass ]Ordered By: Lorrie Soriano on 08-24-2024 MCH (RBC) [Entitic mass] MCH [Entitic mass] by Automated count Low 24.7-34.3 [facility] MCHC Auto (RBC) [Mass/Vol]Or dered By: Lorrie Soriano on 08-24-2024 MCHC (RBC) [Mass/Vol] MCHC [Mass/volume] by Automated count Low 32.0-35.0 [facility] MCV Auto (RBC) [Entitic vol] Ordered By: Lorrie Soriano on 08-24-2024 MCV (RBC) [Entitic vol] MCV [Entitic vol ume] by Automated count Low 80-100 [facility] Monocytes Auto (Bld) [#/Vol] Ordered By: Lorrie Soriano on 08-24-2024 Monocytes (Bld) [#/Vol] Automated blood monocyte count 0.0-0.8 [facility] Monocytes/100 WBC Auto (Bld) Ordered By: Lorrie Soriano on 08-24-2024 Monocytes/100 WBC (Bld) Automated monocyte % . [facility] Neutrophils Auto (Bld) [#/Vo l]Ordered By: Lorrie Soriano on 08-24-2024 Neutrophils (Bld) [#/Vol] Neutrophils [#/volume] in Blood by Automated count 1.8-7.7 [facility] Neutrophils/100 WBC Auto (Bl d)Ordered By: Lorrie Soriano on 08-24-2024 Neutrophils/100 WBC (Bld) Automated neutrophil % . [facility] No Panel InformationOrdered By: Lorrie Soriano on 08-24-2024 Estimated GFR (CKD-EPI) > 60.0 mL/Min [facility] Creatinine Clearance (Chem N/A [facility] Nucleated erythrocytes [Pres ence] in Blood by Automated countOrdered By: Lorrie Soriano on 08-24-2024 Nucleated RBC Auto Ql (Bld) Nucleated erythrocytes [Presence] in Blood by Automated count 0-0.5 [facility] Platelet mean volume Auto (B ld) [Entitic vol]Ordered By: Lorrie Soriano on 08-24-2024 Platelet mean volume (Bld) [Entitic vol] Platelet mean volume [Entitic volume] in Blood by Automated count 6.3-10.7 [facility] Platelets Auto (Bld) [#/Vol] Ordered By: Lorrie Soriano on 08-24-2024 Platelets (Bld) [#/Vol] Platelets [#/vol ume] in Blood by Automated count 150-450 [facility] Potassium [Moles/volume] in Serum or PlasmaOrdered By: Lorrie Soriano on 08-24-2024 Potassium [Moles/Vol] Potassium [Moles/volume] in Serum or Plasma 3.5-5.1 [facility] Protein [Mass/volume] in Ser um or PlasmaOrdered By: Lorrie Soriano on 08-24-2024 Protein [Mass/Vol] Protein [Mass/volume ] in Serum or Plasma 6.4-8.9 [facility] RBC Auto (Bld) [#/Vol]Ordere d By: Lorrie Soriano on 08-24-2024 RBC (Bld) [#/Vol] Erythrocytes [#/volu me] in Blood by Automated count 3.60-5.00 [facility] Serum or plasma albumin/glob ulin mass ratioOrdered By: Lorrie Soriano on 08-24-2024 Albumin/Globulin [Mass ratio] Serum or plasma albumin/globulin mass ratio [facility] Serum or plasma anion gap de terminationOrdered By: Lorrie Soriano on 08-24-2024 Anion gap [Moles/Vol] Serum or plasma an ion gap determination 6.0-15.0 [facility] Sodium [Moles/volume] in Ser um or PlasmaOrdered By: Lorrie Soriano on 08-24-2024 Sodium [Moles/Vol] Sodium [Moles/volume ] in Serum or Plasma 136-145 [facility] Thyroid Stim Hormone w/Rflxo n 08-24-2024 Thyroid Stim Hormone w/Rflx 0.65 u[iU]/mL Normal 0.45-5.33 [facility] Comment on above: Result Comment: PERF ORMED BY: [facility] [address] [place] [address] PATHOLOGIST RACE RELATIONS ADVISER SHERRON MAJOR M.D. Performed By: #### C BC, TSH3 wRFLX, CMP #### [address] Thyrotropin [Units/volume] i n Serum or PlasmaOrdered By: Lorrie Soriano on 08-24-2024 TSH Qn Thyrotropin [Units/volume] in Serum or Plasma 0.45-5.33 [facility] Urea nitrogen [Mass/volume] in Serum or PlasmaOrdered By: Lorrie Soriano on 08-24-2024 Urea nitrogen [Mass/Vol] Urea nitrogen [Mass/volume] in Serum or Plasma 7-25 [facility] WBC Auto (Bld) [#/Vol]Ordere d By: Lorrie Soriano on 08-24-2024 WBC (Bld) [#/Vol] Leukocytes [#/volume ] in Blood by Automated count 3.8-11.6 [facility] Basophils Auto (Bld) [#/Vol] on 08-21-2024 Basophils (Bld) [#/Vol] Automated basoph il count 0.0-0.1 [facility] Basophils/100 WBC Auto (Bld) on 08-21-2024 Basophils/100 WBC (Bld) Automated basophil % 0. 2-2.0 [facility] Buprenorphine [Presence] in Urineon 08-21-2024 Buprenorphine Ql (U) Buprenorphine [Presence] in Urine NEGATIVE [facility] Comment on above: DRUG CLASS TEST [...] [Mass/volume] in Serum or Plasma by calculation [facility] Comment on above: <100 mg/dl [id number] 0-129 mg/dl NEAR OR ABOVE [id number] mg/dl BORDERLINE [id number] mg/dl HIGH>190 mg/dl VERY HIGH Cholesterol in VLDL Calc [Ma ss/Vol]on 08-21-2024 Cholesterol in VLDL [Mass/Vol] Cholesterol in VLDL [Mass/volume] in Serum or Plasma by calculation [facility] Eosinophils/100 WBC Auto (Bl d)on 08-21-2024 Eosinophils/100 WBC (Bld) Automated eosinophil % Low 0.9-7.0 [facility] Erythrocyte distribution wid th Auto (RBC) [Ratio]on 08-21-2024 Erythrocyte distribution width (RBC) [Ratio] Erythrocyte distribution width [Ratio] by Automated count High 11.0-15.0 [facility] Estimated glomerular filtrat ion rate (GFR) non- Americanon 08-21-2024 GFR/1.73 sq M.predicted among non-blacks MDRD (S/P/Bld) [Vol rate/Area] Estimated glomerular filtration rate (GFR) non- >=60 mL/min/1.73 m 2 [facility] Globulin Calc (S) [Mass/Vol] on 08-21-2024 Globulin (S) [Mass/Vol] Serum globulin measurement by calculation (mass/volume) [facility] Glucose mean value [Mass/vol ume] in Blood Estimated from glycated hemoglobinon 08-21-2024 Average glucose Estimated from glycated hemoglobin (Bld) [Mass/Vol] Glucose mean value [Mass/volume] in Blood Estimated from glycated hemoglobin [facility] HCG ( test) Laci d Ql (U)on 08-21-2024 HCG ( test) Ql (U) Urine human chorionic gonadotropin (hCG) detection by immunoassay NEGATIVE [facility] Hematocrit Auto (Bld) [Volum e fraction]on 08-21-2024 Hematocrit (Bld) [Volume fraction] Hematocrit [Volume Fraction] of Blood by Automated count Low 36.0-48.0 [facility] Hemoglobin A1c percentageon 08-21-2024 HbA1c (Bld) [Mass fraction] Hemoglobin A1c percentage 4.5-6.2 [facility] Comment on above: ADA RECOMMENDED LIMI T 4.0 - 6.0ADA THERAPEUTIC TARGET < 7.0ACTION SUGGESTED> 7.0 Hemoglobin [Mass/volume] in Bloodon 08-21-2024 Hemoglobin (Bld) [Mass/Vol] Hemoglobin [Mass/volume] in Blood Low 12.0-16.0 [facility] Laboratory - Chemistry and C hemistry - challengeon 08-21-2024 Albumin [Mass/Vol] 3.6 g/dL 3.4-5.0 [facility] ALP [Catalytic activity/Vol] 96 U/L 46-116 [facility] ALT [Catalytic activity/Vol] 14 U/L 14-59 [facility] AST [Catalytic activity/Vol] 11 U/L Low 15-37 [facility] Bilirubin [Mass/Vol] 0.5 mg/dL 0.2-1.0 [facility] Calcium [Mass/Vol] 8.4 mg/dL Low 8.5-10.1 [facility] Chloride [Moles/Vol] 102 mmol/L 98-107 [facility] Cholesterol [Mass/Vol] 165 mg/dL <=200 [facility] Cholesterol in HDL [Mass/Vol] 46 mg/dL 40-60 [facility] Comment on above: > or =60 mg/dl - LOW CARDIOVASCULAR RISK<40 mg/dl - HIGH CARDIOVASCULAR RISK CO2 [Moles/Vol] 27.3 mmol/L 21.0-32.0 [facility] Creatinine [Mass/Vol] 0.65 mg/dL 0.55-1.02 [facility] Free T4 [Mass/Vol] 0.81 ng/dL 0.76-1.46 [facility] GFR/1.73 sq M.predicted MDRD (S/P/Bld) [Vol rate/Area] mL/min/{1.73_m2} >=60 mL/min/1.73 m 2 [facility] Glucose [Mass/Vol] 99 mg/dL 74-106 [facility] Magnesium [Mass/Vol] 1.6 mg/dL Low 1.8-2.4 [facility] Natriuretic peptide B (Bld) [Mass/Vol] 484.0 pg/mL High <=450.0 [facility] Potassium [Moles/Vol] 3.3 mmol/L Low 3.5-5.1 [facility] Protein [Mass/Vol] 7.1 g/dL 6.4-8.2 [facility] Sodium [Moles/Vol] 136 mmol/L 136-145 [facility] Triglyceride [Mass/Vol] 67 mg/dL <=[address] [facility] TSH Qn 0.241 m[IU]/L Low 0.358-3.740 [facility] Urea nitrogen [Mass/Vol] 6.0 mg/dL Low 7.0-18.0 [facility] Urea nitrogen/Creatinine [Mass ratio] 9.2 mg/mg [facility] - Drug toxicology on 08-21-2024 Amphetamines Ql (U) Negative NEGATIVE [facility] Benzodiazepines Ql (U) Negative NEGATIVE [facility] Cocaine Ql (U) Negative NEGATIVE [facility] Opiates Ql (U) Negative NEGATIVE [facility] Phencyclidine Ql (U) Negative NEGATIVE [facility] - Hematology and Cell countson 08-21-2024 Immature granulocytes/100 WBC (Bld) 0.4 % 0.0-0.5 [facility] Leukocytes [#/volume] correc tripp for nucleated erythrocytes in Blood by Automated counon 08-21-2024 WBC corrected for nucl RBC Auto (Bld) [#/Vol] Leukocytes [#/volume] corrected for nucleated erythrocytes in Blood by Automated coun High 4.0-11.0 [facility] Lymphocytes Auto (Bld) [#/Vo l]on 08-21-2024 Lymphocytes (Bld) [#/Vol] Lymphocytes [#/volume] in Blood by Automated count 1.2-3.8 [facility] Lymphocytes/100 WBC Auto (Bl d)on 08-21-2024 Lymphocytes/100 WBC (Bld) Lymphocytes/100 leukocytes in Blood by Automated count Low 20.5-60.0 [facility] MCH Auto (RBC) [Entitic mass ]on 08-21-2024 MCH (RBC) [Entitic mass] MCH [Entitic mass] by Automated count Low 26.7-34.0 [facility] MCHC Auto (RBC) [Mass/Vol]on 08-21-2024 MCHC (RBC) [Mass/Vol] MCHC [Mass/volume] by Automated count Low 29.9-35.2 [facility] MCV Auto (RBC) [Entitic vol] on 08-21-2024 MCV (RBC) [Entitic vol] MCV [Entitic vol ume] by Automated count 81.0-99.0 [facility] Methadone [Presence] in Urin e by Screen methodon 08-21-2024 Methadone Screen Ql (U) Methadone [Prese nce] in Urine by Screen method NEGATIVE [facility] Monocytes Auto (Bld) [#/Vol] on 08-21-2024 Monocytes (Bld) [#/Vol] Automated blood monocyte count High 0.3-0.8 [facility] Monocytes/100 WBC Auto (Bld) on 08-21-2024 Monocytes/100 WBC (Bld) Automated monocyte % 1. 7-12.0 [facility] Neutrophils Auto (Bld) [#/Vo l]on 08-21-2024 Neutrophils (Bld) [#/Vol] Neutrophils [#/volume] in Blood by Automated count High 1.4-6.5 [facility] Neutrophils/100 WBC Auto (Bl d)on 08-21-2024 Neutrophils/100 WBC (Bld) Automated neutrophil % High 43.0-75.0 [facility] No Panel Informationon 08-21 Troponin I High Sensitivity 71.0 pg/mL Critically high 4.0-51.3 [facility] Comment on above: RESULTS CALLED TO [facility] AVINASH RNCUT-OFF POINTS HAVE BEEN ESTABLISHED BASED ON [...] CLINICAL INFORMATION. Urine Barbiturates Screen Negative NEGATIVE [facility] Urine Marijuana (THC) Screen Negative NEGATIVE [facility] Urine Methamphetamines Screen Negative NEGATIVE [facility] Eosinophils # (Auto) 0.0 10 3/uL 0.0-0.7 [facility] Immature Granulocyte # (Auto) 0.04 10 3/uL High 0.00-0.03 [facility] Platelet mean volume Auto (B ld) [Entitic vol]on 08-21-2024 Platelet mean volume (Bld) [Entitic vol] Platelet mean volume [Entitic volume] in Blood by Automated count 9.5-13.5 [facility] Platelets Auto (Bld) [#/Vol] on 08-21-2024 Platelets (Bld) [#/Vol] Platelets [#/vol ume] in Blood by Automated count 150-450 [facility] RBC Auto (Bld) [#/Vol]on RBC (Bld) [#/Vol] Erythrocytes [#/volu me] in Blood by Automated count Low 4.20-5.40 [facility] Serum or plasma albumin/glob ulin mass ratioon 08-21-2024 Albumin/Globulin [Mass ratio] Serum or plasma albumin/globulin mass ratio [facility] Serum or plasma anion gap de terminationon 08-21-2024 Anion gap [Moles/Vol] Serum or plasma an ion gap determination [facility] Serum or plasma total choles terol/high density lipoprotein (HDL) cholesterol mass eddy 08-21-2024 Cholesterol.total/Christine sterol in HDL [Mass ratio] Serum or plasma total cholesterol/high density lipoprotein (HDL) cholesterol mass rat [facility] Comment on above: 3.3 - 4.4 LOW RISK4. 4 - 7.1 AVERAGE RISK7.1 - 11.0 MODERATE RISK>11.0 HIGH RISK Urine tricyclic antidepressa nt measurementon 08-21-2024 Tricyclic antidepressants (U) [Mass/Vol] Urine tricyclic antidepressant measurement NEGATIVE [facility] oxyCODONE+oxyMORphone [Prese nce] in Urine by Screen methodon 08-21-2024 oxyCODONE+oxyMORphone Screen Ql (U) oxyCODONE+oxyMORphone [Presence] in Urine by Screen method NEGATIVE [facility] Basophils Auto (Bld) [#/Vol] on 08-20-2024 Basophils (Bld) [#/Vol] Automated basoph il count 0.0-0.1 [facility] Basophils/100 WBC Auto (Bld) on 08-20-2024 Basophils/100 WBC (Bld) Automated basophil % Low 0. 2-2.0 [facility] Eosinophils/100 WBC Auto (Bl d)on 08-20-2024 Eosinophils/100 WBC (Bld) Automated eosinophil % Low 0.9-7.0 [facility] Erythrocyte distribution wid th Auto (RBC) [Ratio]on 08-20-2024 Erythrocyte distribution width (RBC) [Ratio] Erythrocyte distribution width [Ratio] by Automated count High 11.0-15.0 [facility] Estimated glomerular filtrat ion rate (GFR) non- Americanon 08-20-2024 GFR/1.73 sq M.predicted among non-blacks MDRD (S/P/Bld) [Vol rate/Area] Estimated glomerular filtration rate (GFR) non- >=60 mL/min/1.73 m 2 [facility] Hematocrit Auto (Bld) [Volum e fraction]on 08-20-2024 Hematocrit (Bld) [Volume fraction] Hematocrit [Volume Fraction] of Blood by Automated count Low 36.0-48.0 [facility] Hemoglobin [Mass/volume] in Bloodon 08-20-2024 Hemoglobin (Bld) [Mass/Vol] Hemoglobin [Mass/volume] in Blood Low 12.0-16.0 [facility] Laboratory - Chemistry and C hemistry - challengeon 08-20-2024 Calcium [Mass/Vol] 8.7 mg/dL 8.5-10.1 [facility] Chloride [Moles/Vol] 98 mmol/L 98-107 [facility] CO2 [Moles/Vol] 24.9 mmol/L 21.0-32.0 [facility] Creatinine [Mass/Vol] 0.76 mg/dL 0.55-1.02 [facility] GFR/1.73 sq M.predicted MDRD (S/P/Bld) [Vol rate/Area] mL/min/{1.73_m2} >=60 mL/min/1.73 m 2 [facility] Glucose [Mass/Vol] 139 mg/dL High 74-106 [facility] Potassium [Moles/Vol] 3.5 mmol/L 3.5-5.1 [facility] Sodium [Moles/Vol] 131 mmol/L Low 136-145 [facility] Urea nitrogen [Mass/Vol] 7.0 mg/dL 7.0-18.0 [facility] Urea nitrogen/Creatinine [Mass ratio] 9.2 mg/mg [facility] Laboratory - Hematology and Cell countson 08-20-2024 Immature granulocytes/100 WBC (Bld) 0.4 % 0.0-0.5 [facility] - Microbiology an d Antimicrobial susceptibilityon 08-20-2024 S. pyogenes Ag Ql (Unsp spec) Negative [facility] SARS-CoV-2 (COVID-19) RNA LIZETT+probe Ql (Unsp spec) Negative NEGATIVE [facility] Comment on above: This test has [...] of Covid-19 under section 564(b)(1) of theAct, U.S.[place]. 360bbb-3(b)(1), unless the declaration isterminated or authorization is revoked sooner. Leukocytes [#/volume] correc tripp for nucleated erythrocytes in Blood by Automated counon 08-20-2024 WBC corrected for nucl RBC Auto (Bld) [#/Vol] Leukocytes [#/volume] corrected for nucleated erythrocytes in Blood by Automated coun High 4.0-11.0 [facility] Lymphocytes Auto (Bld) [#/Vo l]on 08-20-2024 Lymphocytes (Bld) [#/Vol] Lymphocytes [#/volume] in Blood by Automated count Low 1.2-3.8 [facility] Lymphocytes/100 WBC Auto (Bl d)on 08-20-2024 Lymphocytes/100 WBC (Bld) Lymphocytes/100 leukocytes in Blood by Automated count Low 20.5-60.0 [facility] MCH Auto (RBC) [Entitic mass ]on 08-20-2024 MCH (RBC) [Entitic mass] MCH [Entitic mass] by Automated count Low 26.7-34.0 [facility] MCHC Auto (RBC) [Mass/Vol]on 08-20-2024 MCHC (RBC) [Mass/Vol] MCHC [Mass/volume] by Automated count 29.9-35.2 [facility] MCV Auto (RBC) [Entitic vol] on 08-20-2024 MCV (RBC) [Entitic vol] MCV [Entitic vol ume] by Automated count Low 81.0-99.0 [facility] Monocytes Auto (Bld) [#/Vol] on 08-20-2024 Monocytes (Bld) [#/Vol] Automated blood monocyte count 0.3-0.8 [facility] Monocytes/100 WBC Auto (Bld) on 08-20-2024 Monocytes/100 WBC (Bld) Automated monocyte % 1. 7-12.0 [facility] Neutrophils Auto (Bld) [#/Vo l]on 08-20-2024 Neutrophils (Bld) [#/Vol] Neutrophils [#/volume] in Blood by Automated count High 1.4-6.5 [facility] Neutrophils/100 WBC Auto (Bl d)on 08-20-2024 Neutrophils/100 WBC (Bld) Automated neutrophil % High 43.0-75.0 [facility] No Panel Informationon 08-20 Troponin I High Sensitivity 78.4 pg/mL Critically high 4.0-51.3 [facility] Comment on above: [facility] @BY [place] at [...] Eosinophils # (Auto) 0.1 10 3/uL 0.0-0.7 [facility] Immature Granulocyte # (Auto) 0.06 10 3/uL High 0.00-0.03 [facility] Bedside Influenza Type A Antigen Negative [facility] Comment on above: Negative for Flu A p rotein antigen. Infection due to Flu Acannot be ruled out. Flu A antigen in the sample may bebelow the detection limit of the test. Bedside Influenza Type B Antigen Negative [facility] Comment on above: Negative for Flu B p rotein antigen. Infection due to Flu Bcannot be ruled out. Flu B antigen in the sample may bebelow the detection limit of the test. Platelet mean volume Auto (B ld) [Entitic vol]on 08-20-2024 Platelet mean volume (Bld) [Entitic vol] Platelet mean volume [Entitic volume] in Blood by Automated count 9.5-13.5 [facility] Platelets Auto (Bld) [#/Vol] on 08-20-2024 Platelets (Bld) [#/Vol] Platelets [#/vol ume] in Blood by Automated count 150-450 [facility] RBC Auto (Bld) [#/Vol]on 04- 10-2025 RBC (Bld) [#/Vol] Erythrocytes [#/volu me] in Blood by Automated count Low 4.20-5.40 [facility] Serum or plasma anion gap de terminationon 08-20-2024 Anion gap [Moles/Vol] Serum or plasma an ion gap determination [facility] Reminderson 01-04-2023 Reminders - From: Cynthia [...] ) notified patient Thyroid labs normal Normal [facility] T3 Freeon 12-29-2022 Free T3 [Mass/Vol] 3.5 pg/mL Invalid Interpretation Code 2.0-4.4 [facility] Comment on above: Result Comment: Perf ormed at: [facility] [address] [id number] PhD Suzy Shoemaker Performed By: #### 2 [id number], [id number], [id number] ####[facility] [address] [place] [address] CHEMISTRYOrdered By: SYSTEM SYSTEM on 12-27-2022 Free T4 [Mass/Vol] 0.65 ng/dL Normal 0.58 - 1. 64 ng/dL FT Remisol TSH Qn 1.52 m[IU]/L Normal 0.34 - 5.60 mcIU/mL FT Remisol Family Medicine Office/Clini c Noteon 12-27-2022 Family Medicine Office/Clinic Note HPI Staff Adry is a 42 year old female presenting to establish care Establish Care: History: Any previous diagnosis: [...] hepatitis B adult vaccine 03/05/2022 Recorded Normal [facility] Comment on above: Result Comment: Elec tronically Signed By: Cynthia Espinoza\.br\Date and Time Signed: 12/27/22 15:19 EDT Free T4on 12-27-2022 Free T4 [Mass/Vol] 0.65 ng/dL Normal 0.58-1.64 [facility] Comment on above: Performed By: #### 2 [id number], [id number], [id number] ####[facility] [address] [place] [address] TSHon 12-27-2022 TSH Qn 1.52 m[IU]/L Normal 0.34-5.60 [facility] Comment on above: Performed By: #### 2 [id number], [id number], [id number] ####[facility] [address] [place] [address] Consent for Treatmenton 11-10 Consent for Treatment [id number] D:127 Normal [facility] Discharge Instructionson Discharge Instructions [id number] CD:127 Normal [facility] ED Clinical Summaryon 2022 ED Clinical Summary (Inserted Image. Joslyn ble to display) [address] [address] ED Clinical Summary Person Information Name: ADRY CALDERON [facility] Age: 42 Years : 1980 Sex: Female Language: Romansh PCP: NONE, XXXX Marital Status: Single Phone: [phone] Visit Id: Visit Reason: Red eye; Eye [...] 11/22/2022 13:48:53 11/22/2022 13:48:53 11/22/2022 13:48:53 ADDRESS: [address] [place] [phone] PHYS DOC NOTES: MEDICAL INFORMATION: Prescriptions Given: New Medications [id number], [address], [place] [id number], [phone] erythromycin ophthalmic (erythromycin Opth 0.5% Oint) 1/4 [...] Follow up: With: Address: When: [address] [place] [address] Business (1) In 3 days 11/25/2022 DIAGNOSIS: Blepharitis Normal [facility] ED Note-Physicianon 11-23-19 ED Note-Physician Basic Information [...] for 10 day(s), 7 gm, Refill(s) 0, [id number], 170, cm, 11/22/22 12:56:00 EDT, Height/Length [...] Sandoval In 3 days 11/25/2022 EDT [address] [place] [address] Business (1) Additional Instructions: Patient Education Blepharitis Attestation Patient seen and evaluated by the physician retail assistant store manager. Attending physician was present in the emergency department and supervised care. This visit was performed by both the physician and an APC. I performed all aspects of the MDM as documented. This report was transcribed using voice recognition software. Every effort was made to ensure accuracy, however, inadvertently computerized milking machine operator mistakes may be present. Appropriate healthcare PPE [...] Diagnostic Results No qualifying data available. Normal [facility] Comment on above: Result Comment: Elec tronically Signed By: Michael FERNANDEZ, Maxwell\.br\Date and Time Signed: 11/22/22 13:36 EDT\.br\Electronically Co-Signed By: Armaan Dillon M.D..chel\Date and Time Co-Signed: 11/22/22 15:36 EDT ED [...] provider. Document Revised: 05/31/2021 Document Reviewed: 05/31/2021 [employer] Patient Education ? 2022 [employer] Normal [facility] ED Patient Summaryon 023 ED Patient Summary (Inserted Image. Joslyn ble to display) [place] [id number] Patient Discharge Instructions Person Information Name: ADRY CALDERON Age: 42 Years Arrival Date: 11/22/2022 12:46:49 Discharge Diagnosis: Blepharitis Primary Care Physician: NONE, XXXX Provider Information Primary Provider: Armaan Dillon M.D. Advanced Wire Stretcher:Maxwell Rodriguez PA-C The exam and treatment you received in the Emergency Department were for an urgent problem and are not intended as complete care. It is important that you follow up with a doctor, nurse practitioner, or physician?s retail assistant store manager for ongoing care. If your symptoms become worse or you do not improve as expected and you are unable to reach your usual health care provider, you should return to the Emergency Department. We are available 24 hours a day. ADRY CALDERON has been given the following list of patient education materials, prescriptions and follow-up instructions: Follow-up Instructions: With: Address: When: Devorah Sandoval [address] [place] [address] Business (1) In 3 days 11/25/2022 In the event that this physician does not participate in your insurance network, please consult with your insurance company to find a nearby participating provider. Patient Education Materials: Blepharitis A MESSAGE TO ALL PATIENTS REGARDING OPIOIDS PRESCRIPTION OPIOIDS: WHAT YOU NEED TO KNOW Prescription opioids can be used to help relieve ofmcgeyo-to-xgbeap pain and are often prescribed following a [...] from the Food and Drug Administration (www.fda.gov/Drugs/Reso urcesForYou). ? Visit www.cdc.gov/drugoverdos e to learn about the risks of opioids abuse and overdose. ? If you believe you may be struggling with addiction, tell your health vision care associate and ask for guidance or call SAMHSA?S National Helpline at 1-997-707-JLRC. t Source: [place] Department of Health and (more content not included)... Normal [facility] Prescriptions/Work Noteson 0 11-22-2022 Prescriptions/Work Notes [id number] CD:127 Normal [facility] Lab Reportson 08-22-2022 Lab Reports [id number] D:127 Normal [facility] Lab Reports [id number] D:127 [facility] CBC AUTO DIFFon 08-20-2022 BASO # 0.0 103/ul Normal 0.0-0.1 [facility] Comment on above: Performed By: #### C BC #### [facility] [address] [place] [address] Dr. Serjio Samaniego Basophils/100 WBC (Bld) 0.4 % Normal 0.2-2.0 [facility] Comment on above: Performed By: #### C BC #### [facility] [address] [place] [address] Dr. Serjio Samaniego EO # 0.1 103/ul Normal 0.0-0.7 [facility] Comment on above: Performed By: #### C BC #### [facility] [address] [place] [address] Dr. Serjio Samaniego Eosinophils/100 WBC (Bld) 1.4 % Normal 0.9-7.0 [facility] Comment on above: Performed By: #### C BC #### [facility] [address] [place] [address] Dr. Serjio Samaniego Erythrocyte distribution width (RBC) [Ratio] 14.7 % Normal 11.0-15.0 [facility] Comment on above: Performed By: #### C BC #### [facility] [address] [place] [address] Dr. Serjio Samaniego Hematocrit (Bld) [Volume fraction] 35.3 % Critically low 36.0-48.0 [facility] Comment on above: Performed By: #### C BC #### [facility] [address] [place] [address] Dr. Serjio Samaniego Hemoglobin (Bld) [Mass/Vol] 11.0 g/dL Critically low 12.0-16.0 [facility] Comment on above: Performed By: #### C BC #### [facility] [address] [place] [address] Dr. Serjio Samaniego IG # 0.02 10e3/ul Normal 0.00-0.03 [facility] Comment on above: Performed By: #### C BC #### [facility] [address] [place] [address] Dr. Serjio Samaniego IG % 0.3 % Normal 0.0-0.5 [facility] Comment on above: Performed By: #### C BC #### [facility] [address] [place] [address] Dr. Serjio Samaniego LYMPH # 2.1 103/ul Normal 1.2-3.8 [facility] Comment on above: Performed By: #### C BC #### [facility] [address] [place] [address] Dr. Serjio Samaniego Lymphocytes/100 WBC (Bld) 28.0 % Normal 20.5-60.0 [facility] Comment on above: Performed By: #### C BC #### [facility] [address] [place] [address] Dr. Serjio Samaniego MANUAL DIFF REQ NO Normal [facility] Comment on above: Performed By: #### C BC #### [facility] [address] [place] [address] Dr. Serjio Samaniego MCH (RBC) [Entitic mass] 26.4 pg Critically low 26.7-34.0 [facility] Comment on above: Performed By: #### C BC #### [facility] [address] [place] [address] Dr. Serjio Samaniego MCHC (RBC) [Mass/Vol] 31.2 g/dL Normal 29.9-35.2 [facility] Comment on above: Performed By: #### C BC #### [facility] [address] [place] [address] Dr. Serjio Samaniego MCV (RBC) [Entitic vol] 84.7 fL Normal 81.0-99.0 [facility] Comment on above: Performed By: #### C BC #### [facility] [address] [place] [address] Dr. Serjio Samaniego MONO # 0.6 103/ul Normal 0.3-0.8 [facility] Comment on above: Performed By: #### C BC #### [facility] [address] [place] [address] Dr. Serjio Samaniego Monocytes/100 WBC (Bld) 7.8 % Normal 1.7-12.0 [facility] Comment on above: Performed By: #### C BC #### [facility] [address] [place] [address] Dr. Serjio Samaniego NEUT # 4.6 103/ul Normal 1.4-6.5 [facility] Comment on above: Performed By: #### C BC #### [facility] [address] [address] [address] Serjio Samaniego Neutrophils/100 WBC (Bld) 62.1 % Normal 43.0-75.0 [facility] Comment on above: Performed By: #### C BC #### [facility] [address] [address] [address] Serjio Samaniego Platelet mean volume (Bld) [Entitic vol] 9.3 fL Critically low 9.5-13.5 [facility] Comment on above: Performed By: #### C BC #### [facility] [address] [place] [address] Dr. Serjio Samaniego PLT 312 103/ul Normal 150-450 [facility] Comment on above: Performed By: #### C BC #### [facility] [address] [place] [address] Dr. Serjio Samaniego RBC 4.17 106/ul Critically low 4.20-5.40 [facility] Comment on above: Performed By: #### C BC #### [facility] [address] [place] [address] Dr. Serjio Samaniego WBC 7.4 103/ul Normal 4.0-11.0 [facility] Comment on above: Performed By: #### C BC #### [facility] [address] [place] [address] Dr. Serjio Samaniego FREE T3on 08-20-2022 FREE T3 5.08 pg/mlL Critically high 2.18-3.98 [facility] Comment on above: Performed By: #### F T3, TSH, LIPID, CMP #### [facility] [address] [place] [address] Dr. Serjio Samaniego FREE T4on 08-20-2022 Free T4 [Mass/Vol] 0.81 ng/dL Normal 0.76-1.46 [facility] Comment on above: Performed By: #### F T4 #### [facility] [address] [place] [address] Dr. Serjio Samaniego GLYCOHEMOGLOBIN A1Con 2022 ADA RECOMMENDATION SEE BELOW Normal [facility] Comment on above: Result Comment: ADA RECOMMENDED LIMIT 4.0 - 6.0 ADA THERAPEUTIC TARGET < 7.0 ACTION SUGGESTED > 7.0 Performed By: #### A 1C #### [facility] [address] [place] [address] Dr. Serjio Samaniego Glucose [Mass/Vol] 120 mg/dL Normal [facility] Comment on above: Performed By: #### A 1C #### [facility] [address] [address] [address] Serjio Samaniego HbA1c (Bld) [Mass fraction] 5.8 % Normal 4.5-6.2 [facility] Comment on above: Performed By: #### A 1C #### [facility] [address] [place] [address] Dr. Serjio Samaniego LIPID PROFILEon 08-20-2022 CHOL-HDL RATIO NORM SEE BELOW Normal [facility] Comment on above: Result Comment: 3.3 - 4.4 LOW RISK 4.4 - 7.1 AVERAGE RISK 7.1 - 11.0 MODERATE RISK >11.0 HIGH RISK Performed By: #### F T3, TSH, LIPID, CMP #### [facility] [address] [place] [address] Dr. Serjio Samaniego Cholesterol [Mass/Vol] 205 mg/dL Critically high <=200 [facility] Comment on above: Performed By: #### F T3, TSH, LIPID, CMP #### [facility] [address] [place] [address] Dr. Serjio Samaniego Cholesterol in HDL [Mass/Vol] 37 mg/dL Critically low 40-60 [facility] Comment on above: Performed By: #### F T3, TSH, LIPID, CMP #### [facility] [address] [place] [address] Dr. Serjio Samaniego Cholesterol in LDL [Mass/Vol] 141.0 mg/dL Normal [facility] Comment on above: Performed By: #### F T3, TSH, LIPID, CMP #### [facility] [address] [place] [address] Dr. Serjio Samaniego Cholesterol.total/Christine sterol in HDL [Mass ratio] 5.5 {ratio} Normal [facility] Comment on above: Performed By: #### F T3, TSH, LIPID, CMP #### [facility] [address] [place] [address] Dr. Serjio Samaniego HDL NORMAL > or = 60 mg/dl - LO W CARDIOVASCULAR RISK <40 mg/dl - HIGH CARDIOVASCULAR RISK Normal [facility] Comment on above: Performed By: #### F T3, TSH, LIPID, CMP #### [facility] [address] [place] [address] Dr. Serjio Samaniego LDL CALC NORMAL SEE BELOW Normal [facility] Comment on above: Result Comment: <100 mg/dl OPTIMAL 100 - 129 mg/dl NEAR OR ABOVE OPTIMAL 130 - 159 mg/dl BORDERLINE HIGH 160 - 189 mg/dl HIGH >190 mg/dl VERY HIGH Performed By: #### F T3, TSH, LIPID, CMP #### [facility] [address] [place] [address] Dr. Serjio Samaniego Triglyceride [Mass/Vol] 135 mg/dL Normal <=150 [facility] Comment on above: Performed By: #### F T3, TSH, LIPID, CMP #### [facility] [address] [place] [address] Dr. Serjio Samaniego VLDL CALC 27.0 mg/dL Normal [facility] Comment on above: Performed By: #### F T3, TSH, LIPID, CMP #### [facility] [address] [place] [address] Dr. Serjio Samaniego PROF 14(COMP METB)on 023 Albumin [Mass/Vol] 3.7 g/dL Normal 3.4-5.0 [facility] Comment on above: Performed By: #### F T3, TSH, LIPID, CMP #### [facility] [address] [place] [address] Dr. Serjio Samaniego Albumin/Globulin [Mass ratio] 0.9 {ratio} Normal [facility] Comment on above: Performed By: #### F T3, TSH, LIPID, CMP #### [facility] [address] [place] [address] Dr. Serjio Samaniego ALP [Catalytic activity/Vol] 92 U/L Normal 46-116 [facility] Comment on above: Performed By: #### F T3, TSH, LIPID, CMP #### [facility] [address] [address] [address] Serjio Samaniego ALT [Catalytic activity/Vol] 21 U/L Normal 14-59 [facility] Comment on above: Performed By: #### F T3, TSH, LIPID, CMP #### [facility] [address] [address] [address] Serjio Samaniego Anion gap [Moles/Vol] 11.9 mmol/L Normal [facility] Comment on above: Performed By: #### F T3, TSH, LIPID, CMP #### [facility] [facility] [address] [place] [address] Dr. Serjio Samaniego AST [Catalytic activity/Vol] 9 U/L Critically low 15-37 [facility] Comment on above: Performed By: #### F T3, TSH, LIPID, CMP #### [facility] [address] [place] [address] Dr. Serjio Samaniego Bilirubin [Mass/Vol] 0.3 mg/dL Normal 0.2-1.0 [facility] Comment on above: Performed By: #### F T3, TSH, LIPID, CMP #### [facility] [address] [place] [address] Dr. Serjio Samaniego Calcium [Mass/Vol] 9.0 mg/dL Normal 8.5-10.1 [facility] Comment on above: Performed By: #### F T3, TSH, LIPID, CMP #### [facility] [address] [place] [address] Dr. Serjio Samaniego Chloride [Moles/Vol] 102 mmol/L Normal 98-107 [facility] Comment on above: Performed By: #### F T3, TSH, LIPID, CMP #### [facility] [address] [place] [address] Dr. Serjio Samaniego CO2 [Moles/Vol] 28.5 mmol/L Normal 21.0-32.0 [facility] Comment on above: Performed By: #### F T3, TSH, LIPID, CMP #### [facility] [address] [address] [address] Serjio Samaniego Creatinine [Mass/Vol] 0.62 mg/dL Normal 0.55-1.02 [facility] Comment on above: Performed By: #### F T3, TSH, LIPID, CMP #### [facility] [address] [address] [address] Serjio Samaniego EGFR-AF BRAZILIAN >60 Normal >=60 [facility] Comment on above: Performed By: #### F T3, TSH, LIPID, CMP #### [facility] [address] [address] [address] Serjio Samaniego EGFR-NON AF BRAZILIAN >60 Normal >=60 [facility] Comment on above: Performed By: #### F T3, TSH, LIPID, CMP #### [facility] [address] [address] [address] Serjio Samaniego Globulin (S) [Mass/Vol] 4.0 g/dL Normal [facility] Comment on above: Performed By: #### F T3, TSH, LIPID, CMP #### [facility] [address] [address] [address] Serjio Samaniego Glucose [Mass/Vol] 111 mg/dL Critically high 74-106 [facility] Comment on above: Performed By: #### F T3, TSH, LIPID, CMP #### [facility] [address] [address] [address] Serjio Samaniego Potassium [Moles/Vol] 4.4 mmol/L Normal 3.5-5.1 [facility] Comment on above: Performed By: #### F T3, TSH, LIPID, CMP #### [facility] [address] [address] [address] Serjio Samaniego Protein [Mass/Vol] 7.7 g/dL Normal 6.4-8.2 [facility] Comment on above: Performed By: #### F T3, TSH, LIPID, CMP #### [facility] [address] [address] [address] Serjio Samaniego Sodium [Moles/Vol] 138 mmol/L Normal 136-145 [facility] Comment on above: Performed By: #### F T3, TSH, LIPID, CMP #### [facility] [address] [address] [address] Serjio Samaniego Urea nitrogen [Mass/Vol] 7.0 mg/dL Normal 7.0-18.0 [facility] Comment on above: Performed By: #### F T3, TSH, LIPID, CMP #### [facility] [address] [address] [address] Serjio Samaniego Urea nitrogen/Creatinine [Mass ratio] 11.3 mg/mg Normal [facility] Comment on above: Performed By: #### F T3, TSH, LIPID, CMP #### [facility] [address] [address] [address] Serjio Samaniego TSHon 08-20-2022 TSH 0.053 uIU/mL Critically low 0.358-3.740 [facility] Comment on above: Performed By: #### F T3, TSH, LIPID, CMP #### [facility] [address] [address] [address] Serjio Samaniego Ambulatory Visit Summaryon 0 [...] metformin (metformin 500 mg Tab) thyroid desiccated ([place] Thyroid 120 mg Tab) Procedures Performed Ablation, [...] By Mouth Every day Unchanged thyroid desiccated ([place] Thyroid 120 mg Tab) 1 Tablets By Mouth Every day Medications and Immunizations Administered Not Given SARS-CoV-2 mRNA (tozinameran 5y-11y) vac, Postpone due to refusal Allergies bisoprolol (Unknown) Problems Ongoing - Any problem that you are currently receiving treatment for. 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 Medications [place] Thyroid 120 mg Tab, 120 mg= 1 tab(s), Oral, Daily metformin 500 mg Tab, 500 mg= 1 tab(s), Oral, Daily Allergies bisoprolol (Unknown) Social History Tobacco Never (less than 100 in lifetime) Tobacco Use:. Never Smokeless Tobacco Use:., 08/15/2022 Family History Family history is negative Immunizations Vaccine Date Status Comments SARS-CoV-2 mRNA (mateon 5y-11y) vac - Not Given Postpone due to refusal measles/mumps/rubella virus vaccine 04/13/2022 Recorded hepatitis B adult vaccine 04/13/2022 Recorded measles/mumps/rubella virus vaccine 03/05/2022 Recorded hepatitis B adult vaccine 03/05/2022 Recorded Normal [facility] Comment on above: Result Comment: Elec tronically Signed By: [place] DURAN, VESNA Becerra.br\Date and Time Signed: 08/15/22 10:38 EDT CBC AUTO DIFFon 10-04-2021 BASO # 0.0 103/ul Normal 0.0-0.1 [facility] Comment on above: Performed By: #### C BC #### [facility] [address] [address] [address] Serjio Samaniego Basophils/100 WBC (Bld) 0.4 % Normal 0.2-2.0 [facility] Comment on above: Performed By: #### C BC #### [facility] [address] [place] [address] Dr. Serjio Samaniego EO # 0.1 103/ul Normal 0.0-0.7 [facility] Comment on above: Performed By: #### C BC #### [facility] [address] [place] [address] Dr. Serjio Samaniego Eosinophils/100 WBC (Bld) 1.1 % Normal 0.9-7.0 [facility] Comment on above: Performed By: #### C BC #### [facility] [address] [place] [address] Dr. Serjio Samaniego Erythrocyte distribution width (RBC) [Ratio] 14.1 % Normal 11.0-15.0 [facility] Comment on above: Performed By: #### C BC #### [facility] [address] [place] [address] Dr. Serjio Samaniego Hematocrit (Bld) [Volume fraction] 34.6 % Critically low 36.0-48.0 [facility] Comment on above: Performed By: #### C BC #### [facility] [address] [place] [address] Dr. Serjio Samaniego Hemoglobin (Bld) [Mass/Vol] 10.6 g/dL Critically low 12.0-16.0 [facility] Comment on above: Performed By: #### C BC #### [facility] [address] [place] [address] Dr. Serjio Samaniego IG # 0.03 10e3/ul Normal 0.00-0.03 [facility] Comment on above: Performed By: #### C BC #### [facility] [address] [place] [address] Dr. Serjio Samaniego IG % 0.4 % Normal 0.0-0.5 [facility] Comment on above: Performed By: #### C BC #### [facility] [address] [place] [address] Dr. Serjio Samaniego LYMPH # 2.4 103/ul Normal 1.2-3.8 [facility] Comment on above: Performed By: #### C BC #### [facility] [address] [place] [address] Dr. Serjio Samaniego Lymphocytes/100 WBC (Bld) 31.7 % Normal 20.5-60.0 [facility] Comment on above: Performed By: #### C BC #### [facility] [address] [place] [address] Dr. Serjio Samaniego MANUAL DIFF REQ NO Normal [facility] Comment on above: Performed By: #### C BC #### [facility] [address] [place] [address] Dr. Serjio Samaniego MCH (RBC) [Entitic mass] 27.7 pg Normal 26.7-34.0 [facility] Comment on above: Performed By: #### C BC #### [facility] [address] [place] [address] Dr. Serjio Samaniego MCHC (RBC) [Mass/Vol] 30.6 g/dL Normal 29.9-35.2 [facility] Comment on above: Performed By: #### C BC #### [facility] [address] [place] [address] Dr. Serjio Samaniego MCV (RBC) [Entitic vol] 90.6 fL Normal 81.0-99.0 [facility] Comment on above: Performed By: #### C BC #### [facility] [address] [place] [address] Dr. Serjio Samaniego MONO # 0.5 103/ul Normal 0.3-0.8 [facility] Comment on above: Performed By: #### C BC #### [facility] [address] [place] [address] Dr. Serjio Samaniego Monocytes/100 WBC (Bld) 6.8 % Normal 1.7-12.0 [facility] Comment on above: Performed By: #### C BC #### [facility] [address] [place] [address] Dr. Serjio Samaniego NEUT # 4.5 103/ul Normal 1.4-6.5 [facility] Comment on above: Performed By: #### C BC #### [facility] [address] [place] [address] Dr. Serjio Samaniego Neutrophils/100 WBC (Bld) 59.6 % Normal 43.0-75.0 [facility] Comment on above: Performed By: #### C BC #### [facility] [address] [place] [address] Dr. Serjio Samaniego Platelet mean volume (Bld) [Entitic vol] 9.6 fL Normal 9.5-13.5 [facility] Comment on above: Performed By: #### C BC #### [facility] [address] [place] [address] Dr. Serjio Samaniego PLT 349 103/ul Normal 150-450 [facility] Comment on above: Performed By: #### C BC #### [facility] [address] [place] [address] Dr. Serjio Samaniego RBC 3.82 106/ul Critically low 4.20-5.40 [facility] Comment on above: Performed By: #### C BC #### [facility] [address] [place] [address] Dr. Serjio Samaniego WBC 7.5 103/ul Normal 4.0-11.0 [facility] Comment on above: Performed By: #### C BC #### [facility] [address] [place] [address] Dr. Serjio Samaniego FREE T3on 05-25-2022 FREE T3 5.11 pg/mlL Critically high 2.18-3.98 [facility] Comment on above: Performed By: #### F T3, TSH, LIPID, CMP #### [facility] [address] [place] [address] Dr. Serjio Samaniego FREE T4on 10-04-2021 Free T4 [Mass/Vol] 0.88 ng/dL Normal 0.76-1.46 [facility] Comment on above: Performed By: #### F T4 #### [facility] [address] [place] [address] Dr. Serjio Samaniego LIPID PROFILEon 10-04-2021 CHOL-HDL RATIO NORM SEE BELOW Normal [facility] Comment on above: Result Comment: 3.3 - 4.4 LOW RISK 4.4 - 7.1 AVERAGE RISK 7.1 - 11.0 MODERATE RISK >11.0 HIGH RISK Performed By: #### F T3, TSH, LIPID, CMP #### [facility] [address] [place] [address] Dr. Serjio Samaniego Cholesterol [Mass/Vol] 195 mg/dL Normal <=200 Th [facility] Comment on above: Performed By: #### F T3, TSH, LIPID, CMP #### [facility] [address] [place] [address] Dr. Serjio Samaniego Cholesterol in HDL [Mass/Vol] 32 mg/dL Critically low 40-60 [facility] Comment on above: Performed By: #### F T3, TSH, LIPID, CMP #### [facility] [address] [place] [address] Dr. Serjio Samaniego Cholesterol in LDL [Mass/Vol] 129.6 mg/dL Normal [facility] Comment on above: Performed By: #### F T3, TSH, LIPID, CMP #### [facility] [address] [place] [address] Dr. Serjio Samaniego Cholesterol.total/Christine sterol in HDL [Mass ratio] 6.1 {ratio} Normal [facility] Comment on above: Performed By: #### F T3, TSH, LIPID, CMP #### [facility] [address] [place] [address] Dr. Serjio Samaniego HDL NORMAL > or = 60 mg/dl - LO W CARDIOVASCULAR RISK <40 mg/dl - HIGH CARDIOVASCULAR RISK Normal [facility] Comment on above: Performed By: #### F T3, TSH, LIPID, CMP #### [facility] [address] [address] [address] Serjio Samaniego LDL CALC NORMAL SEE BELOW Normal [facility] Comment on above: Result Comment: <100 mg/dl OPTIMAL 100 - 129 mg/dl NEAR OR ABOVE OPTIMAL 130 - 159 mg/dl BORDERLINE HIGH 160 - 189 mg/dl HIGH >190 mg/dl VERY HIGH Performed By: #### F T3, TSH, LIPID, CMP #### [facility] [address] [address] [address] Serjio Samaniego Triglyceride [Mass/Vol] 167 mg/dL Critically high <=150 [facility] Comment on above: Performed By: #### F T3, TSH, LIPID, CMP #### [facility] [address] [place] [address] Dr. Serjio Samaniego VLDL CALC 33.4 mg/dL Normal [facility] Comment on above: Performed By: #### F T3, TSH, LIPID, CMP #### [facility] [address] [place] [address] Dr. Serjio Samaniego PROF 14(COMP METB)on 022 Albumin [Mass/Vol] 3.9 g/dL Normal 3.4-5.0 [facility] Comment on above: Performed By: #### F T3, TSH, LIPID, CMP #### [facility] [address] [address] [address] Serjio Samaniego Albumin/Globulin [Mass ratio] 1.0 {ratio} Normal [facility] Comment on above: Performed By: #### F T3, TSH, LIPID, CMP #### [facility] [address] [place] [address] Dr. Serjio Samaniego ALP [Catalytic activity/Vol] 105 U/L Normal 46-116 [facility] Comment on above: Performed By: #### F T3, TSH, LIPID, CMP #### [facility] [address] [place] [address] Dr. Serjio Samaniego ALT [Catalytic activity/Vol] 29 U/L Normal 14-59 [facility] Comment on above: Performed By: #### F T3, TSH, LIPID, CMP #### [facility] [address] [address] [address] Serjio Samaniego Anion gap [Moles/Vol] 12.4 mmol/L Normal Th e [facility] Comment on above: Performed By: #### F T3, TSH, LIPID, CMP #### [facility] [address] [address] [address] Serjio Samaniego AST [Catalytic activity/Vol] 15 U/L Normal 15-37 [facility] Comment on above: Performed By: #### F T3, TSH, LIPID, CMP #### [facility] [address] [place] [address] Dr. Serjio Samaniego Bilirubin [Mass/Vol] 0.5 mg/dL Normal 0.2-1.0 [facility] Comment on above: Performed By: #### F T3, TSH, LIPID, CMP #### [facility] [address] [place] [address] Dr. Serjio Samaniego Calcium [Mass/Vol] 8.7 mg/dL Normal 8.5-10.1 [facility] Comment on above: Performed By: #### F T3, TSH, LIPID, CMP #### [facility] [address] [place] [address] Dr. Serjio Samaniego Chloride [Moles/Vol] 101 mmol/L Normal 98-107 [facility] Comment on above: Performed By: #### F T3, TSH, LIPID, CMP #### [facility] [address] [place] [address] Dr. Serjio Samaniego CO2 [Moles/Vol] 28.4 mmol/L Normal 21.0-32.0 [facility] Comment on above: Performed By: #### F T3, TSH, LIPID, CMP #### [facility] [address] [place] [address] Dr. Serjio Samaniego Creatinine [Mass/Vol] 0.64 mg/dL Normal 0.55-1.02 [facility] Comment on above: Performed By: #### F T3, TSH, LIPID, CMP #### [facility] [address] [address] [address] Serjio Samaniego EGFR-AF BRAZILIAN >60 Normal >=60 [facility] Comment on above: Performed By: #### F T3, TSH, LIPID, CMP #### [facility] [address] [address] [address] Serjio Samaniego EGFR-NON AF BRAZILIAN >60 Normal >=60 [facility] Comment on above: Performed By: #### F T3, TSH, LIPID, CMP #### [facility] [address] [address] [address] Serjio Samaniego Globulin (S) [Mass/Vol] 3.8 g/dL Normal T [facility] Comment on above: Performed By: #### F T3, TSH, LIPID, CMP #### [facility] [address] [place] [address] Dr. Serjio Samaniego Glucose [Mass/Vol] 99 mg/dL Normal 74-106 [facility] Comment on above: Performed By: #### F T3, TSH, LIPID, CMP #### [facility] [address] [address] [address] Serjio Samaniego Potassium [Moles/Vol] 3.8 mmol/L Normal 3.5-5.1 [facility] Comment on above: Performed By: #### F T3, TSH, LIPID, CMP #### [facility] [address] [address] [address] Serjio Samaniego Protein [Mass/Vol] 7.7 g/dL Normal 6.4-8.2 [facility] Comment on above: Performed By: #### F T3, TSH, LIPID, CMP #### [facility] [address] [address] [address] Serjio Samaniego Sodium [Moles/Vol] 138 mmol/L Normal 136-145 [facility] Comment on above: Performed By: #### F T3, TSH, LIPID, CMP #### [facility] [address] [address] [address] Serjio Samaniego Urea nitrogen [Mass/Vol] 10.0 mg/dL Normal 7.0-18.0 [facility] Comment on above: Performed By: #### F T3, TSH, LIPID, CMP #### [facility] [address] [address] [address] Serjio Samaniego Urea nitrogen/Creatinine [Mass ratio] 15.6 mg/mg Normal [facility] Comment on above: Performed By: #### F T3, TSH, LIPID, CMP #### [facility] [address] [address] [address] Serjio Samaniego TSHon 10-04-2021 TSH 0.137 uIU/mL Critically low 0.358-3.740 [facility] Comment on above: Performed By: #### F T3, TSH, LIPID, CMP #### [facility] [address] [place] [address] Dr. Serjio Samaniego TSH RANGE SEE BELOW Normal [facility] Comment on above: Result Comment: <0.3 4 UIU/ml HYPERTHYROID 0.34-5.60 UIU/ml EUTHYROID >5.60 UIU/ml HYPOTHYROID Performed By: #### F T3, TSH, LIPID, CMP #### [facility] [address] [place] [address] Dr. Serjio Samaniego Vital Signs Date Time Vital Sign Value Performing Clinician Facility 01-05-2025 13:28040 Body height 170.18 cm Lorrie Soriano APRN Work Phone: [facility] 01-05-2025 13:28040 Body mass index (BMI) [Ratio] 34 kg/m2 Lorrie Soriano APRN Work Phone: [facility] 01-05-2025 13:28040 Body temperature 97.6 [degF] Lorrie Soriano APRN Work Phone: [facility] 01-05-2025 13:28040 Body weight 98.42 kg Lorrie Soriano APRN Work Phone: [facility] 01-05-2025 13:28-040 Diastolic blood pressure 82 mm[Hg] Lorrie Soriano [employer] Work Phone: [facility] 01-05-2025 13:28-0400 Heart rate 81 /min Lorrie Ibrahimsaranathanaelteodoro [employer] Work Phone: [facility] 01-05-2025 13:28-0400 SaO2% (BldA) [Mass fraction] 96 % Lorrie Ibrahimsaranathanaelteodoro [employer] Work Phone: [facility] 01-05-2025 13:28-0400 Systolic blood pressure 122 mm[Hg] Lorrie Ibrahimsaranathanaelteodoro [employer] Work Phone: [facility] 08-26-2024 13:05-0400 Body height 170.18 cm Lorrie Ibrahimsaranathanaelteodoro [employer] Work Phone: [facility] 08-26-2024 13:05-0400 Body mass index (BMI) [Ratio] 34.7 kg/m2 Lorrie Ibrahimsaranathanaelteodoro [employer] Work Phone: [facility] 08-26-2024 13:05-0400 Body temperature 97.7 [degF] Lorrie Ibrahimgamal [employer] Work Phone: [facility] 08-26-2024 13:05-0400 Body weight 100.69 kg Lorrie Soriano [employer] Work Phone: [facility] 08-26-2024 13:05-0400 Diastolic blood pressure 78 mm[Hg] Lorrie Ibrahimgamal [employer] Work Phone: [facility] 08-26-2024 13:05-0400 Heart rate 93 /min Lorrie Ibrahimgamal [employer] Work Phone: [facility] 08-26-2024 13:05-0400 SaO2% (BldA) [Mass fraction] 96 % Lorrie Ibrahimgamal [employer] Work Phone: [facility] 08-26-2024 13:05-0400 Systolic blood pressure 130 mm[Hg] Lorrie Soriano APRN Work Phone: [facility] 04-23-2023 13:00-0500 Body height 170.18 cm Lorrie Soriano Other [facility] Other 04-23-2023 13:00-0500 Body mass index (BMI) [Ratio] 35.24 kg/m2 Lorrie Soriano Other [facility] Other 04-23-2023 13:00-0500 Body weight 102.06 kg Lorrie Soriano Other [facility] Other 04-23-2023 13:00-0500 Diastolic blood pressure 88 mm[Hg] Lorrie Soriano Other [facility] Other 04-23-2023 13:00-0500 SaO2% (BldA) [Mass fraction] 97 % Lorrie Soriano Other [facility] Other 04-23-2023 13:00-0500 Systolic blood pressure 152 mm[Hg] Lorrie Soriano Other [facility] Other Encounters Encounter Date Encounter Type Care Provider Facility Start: 01-05-2025 End: 01-05-2025 Patient encounter procedure Lorrie Soriano APRN [facility]EEPER [facility] Work Phone: Start: 01-05-2025 End: 01-05-2025 ambulatory Lorrie Soriano APRN Work Phone: [facility] Work Phone: Start: 01-05-2025 End: 01-05-2025 ambulatory Lorrie Soriano APRN Work Phone: [facility] Work Phone: Start: 01-05-2025 End: 01-05-2025 Patient encounter [facility] Work Phone: Start: 08-26-2024 End: 08-26-2024 ambulatory Lorrie Ibrahimsaraelizabeth [employer] Work Phone: [facility] Work Phone: Start: 08-26-2024 End: 08-26-2024 Patient encounter procedure Lorrie Ibrahimsaranathanaelteodoro [employer] Work Phone: [facility] Work Phone: Start: 08-24-2024 Non-patient / Non-visit Lorrie Ibarhimsaranathanaelteodoro [employer] Work Phone: [facility] Work Phone: Start: 08-24-2024 End: 08-24-2024 Patient encounter procedure Lorrie Ibrahimgamal [employer] Work Phone: [facility] Work Phone: Start: 08-24-2024 End: 08-24-2024 ambulatory Lorrie Ibrahimsaraelizabeth [employer] Work Phone: [facility] Work Phone: Start: 08-21-2024 Non-patient / Non-visit Lorrie Bo [employer] Work Phone: [facility] Work Phone: Start: 08-20-2024 Non-patient / Non-visit Lorrie Bo [employer] Work Phone: [facility] Work Phone: Start: 04-23-2023 End: 04-23-2023 ambulatory Lorrie Bo Other [facility] Other Start: 04-23-2023 Office outpatient ne w 30 minutes Lorrie Soriano [facility] Start: 12-27-2022 End: 12-28-2022 ambulatory Cynthia Kellogg Facility:[facility] Start: 12-27-2022 End: 12-27-2022 Lab Drop off Cynthia Adelso [facility] Start: 11-22-2022 End: 11-22-2022 Emergency department patient visit Armaan Gerardceferino Facility:[facility] Start: 08-20-2022 End: 08-21-[address] VESNA ANAYA . Facility: Start: 08-15-2022 End: 08-16-2022 ambulatory VESNA ANAYA Facility:[facility] Maura charles Start: 08-02-2022 ambulatory VESNA ANAYA Facility:[facility] JULIAN [place] Start: 07-20-2022 ambulatory VESNA ANAYA Facility: Ghada JORDAN [facility] Start: 12-07-2021 End: 12-08-[address] VESNA ANAYA . Facility: Start: 12-04-2021 End: 12-05-[address] VESNA ANAYA . Facility: Start: 10-04-2021 End: 10-05-[address] VESNA ANAYA . Facility: Procedures Date Procedure Procedure Detail Performing Clinician section Cynthia Valdez Comment on above: X 2 Destructive procedure Cynthia Tamera chwab Comment on above: PSVT 2009 History of repair of umbilical hernia Cynthia Kellogg Reconstruction of maxilla Vika Srinivasan Comment on above: upper jaw Transplant (body structure) Cynthia Kellogg Comment on above: muscle and nerves fr om leg to right side of the face Plan of Treatment Date Care Activity Detail Author Start: 01-05-2025 Patient referral [facility] Work Phone: Comprehensive metabo lic 2000 panel - Serum or Plasma [facility] MG Breast - bilateral Screening [facility] Patient referral [facility] Work Phone: [facility] Immunizations Immunization Date Immunization Notes Care Provider Elizabeth barrientos 04-13-2022 hepatitis B vaccine, adult dosage Cynthia Valdez [facility] 04-13-2022 measles, mumps and rubella virus vaccine Cynthia Valdez [facility] 03-05-2022 hepatitis B vaccine, adult dosage Cynthia Valdez [facility] 03-05-2022 measles, mumps and rubella virus vaccine Cynthia Valdez [facility] NEGATED: Highlighted row has not occurred!08-15-2022 SARS-CoV-2 mRNA (tozinameran 5y-11y) vaccine Cynthia Valdez [facility] Payers Date Payer Category Payer Self-pay 2024 Unknown [id number] 2016 Medicare [id number] 1980 Unknown [id number] 2.16.84 [id number] 1978 Unknown [id number] 2.16.84 [id number] 1978 Unknown [id number] .16.84 [id number] 1978 Unknown [id number] .16.84 0.1.395080.3.579.2.593 1978 Unknown [id number] 2.16.8 40.1.237583.3.579.2.727 1978 Unknown [id number] 2.16.8 40.1.844683.3.579.2.727 1978 Unknown [id number] 2.16.8 40.1.795358.3.579.2.727 1978 Unknown [id number] 2.16.8 40.1.600044.3.579.2.727 1978 Unknown [id number] 2.16.8 40.1.110624.3.579.2.727 1978 Unknown [id number] 2.16.8 40.1.585790.3.579.2.727 1961 Medicaid [id number] 1961 Medicare [id number] Medicaid Medicaid [id number] Unknown [id number] 2.16.8 [id number] Unknown [id number] 2.16.8 [id number] Social History Date Type Detail Facility Start: 12-27-2022 End: 04-21-2024 Tobacco smoking status Never smoked tobacco (finding) [facility] Tobacco smoking status Never [facility] Sex Assigned At Female [facility] Start: 08-25-2024 End: 08-26-2024 Sex Female (finding) [facility] Start: 1980 Sex Assigned At Female [facility] Clinical Notes 12-05-2021 to 01-05-2025 Note Date & Type Note Facility 01-05-2025 Evaluation note Diagnosis Onset Date Resolution Acquired hypothyroidism acute A ugust 2024 1:25pm Hypertension acute January 05, 2025 1:25pm Screening for colon cancer acute January 05 1:25pm [facility] Work Phone: [phone]) 718-914412-12-2023 Evaluation note* Encounter Date Diagnosis Assessment Notes Treatment Notes Treatment Clinical Notes Apr, Acquired hypothyroidism (ICD-10 - E03.9) [...] determine if we need blood pressure medicaiton. [facility] Other 08-17-2023 Evaluation + Plan note Diagnostic Tests Pending * T3 Free 12/27/22 [facility]07-26-2022 NotePROCEDURE: XR HAND RT MIN 3V HISTORY: Pain in right hand ; third digit pain and swelling COMPARISON: None. FINDINGS: BONES:No fracture, acute abnormality, or significant arthropathy. SOFT TISSUES:Soft tissue swelling. No radiopaque foreign body. EFFUSION:None visible. OTHER: Negative. IMPRESSION: 1. Soft tissue swelling of third digits of uncertain etiology. 2. No suspicious bone abnormality or radiopaque foreign body. Electronically authenticated by: RANDALL BLEVINS Date: 2021-12-05 07:49[facility] assessment information available[facility] Work [facility]: Evaluation note* Diagnosis Onset Date Resolution Status Admit Date Syncope acute August 26 1:01pm [facility] Work Phone: Evaluation note* Diagnosis Onset Date Resolution Status Admit Date Acquired hypothyroidism acute A ugust 2024 1:25pm Hypertension acute January 05, 2025 1:25pm Screening for colon cancer acute January 05, 2025 1:25pm [facility] Work Phone: History general Narrative - Reported* Type Description Date Medical History Scoliosis Medical History Anxiety Medical History Depression Medical History Hypertension Medical History Tachycardia Medical History facial palsy Medical History Brachial plexus disorders Medical History Thyroid disease Surgical History ablasion Surgical History facial cosmetic surgery Surgical History x2 Surgical History Hernia Repair Hospitalization History see above [facility] Other Hospital course Narrative No data available for this section [facility] No data available for this section [facility] Discharge instructionsAmbulatory Orders* Referral to Gastroenterology Time Frame: 01/05/25, Location: None [facility] Work Phone: Progress note No data available for this section [facility] Summary Purpose Family History No Family History Records Found Relationship Condition Age at Onset Recorded Date/T ivette mother Hypertension Unknown Advance Directives No Advanced Directives Records Found Advance Directive Response Recorded Date/ Time Advance Directives No April 11:08am Chief Complaint and Reason for Visit Chief Complaint Admit Date Tired/Wants BW January 05, 2025 1: 25pm e03.9 r53.83 i10 January 05, 2025 2: 45pm Reason for Visit Admit Date Acquired hypothyroidism January 05 1:25pm Hypertension January 05, 2025 1: 25pm Screening for colon cancer January 05, 2025 1:25pm Chief Complaint Admit Date E07.9, Z87.442, R10.2, R10.9 August 24, 2024 10:27am Amb Documentation August 24, 2024 11: 38am Chief Complaint Admit Date E07.9, Z87.442, R10.2, R10.9 August 24, 2024 10:27am Amb Documentation August 24, 2024 11: 38am [facility]; syncope August 26, 2024 1:0 1pm Reason for Visit Admit Date Syncope August 26, 2024 1:0 1pm Chief Complaint Admit Date Tired/Wants BW January 05, 2025 1: 25pm Additional Source Comments INFORMATION SOURCE (unrecogn ized section and content) DATE CREATED AUTHOR 08/26/2022 Shelton carlos DATE CREATED AUTHOR AUTHOR'S ORGANIZ ATION 01/05/2023 [facility] DATE CREATED AUTHOR AUTHOR'S ORGANIZ ATION 09/04/2024 [facility] DATE CREATED AUTHOR AUTHOR'S ORGANIZ ATION 01/07/2025 [facility] Patient Care team informatio n (unrecognized section and content) Team Status: Active Member Role Status Dates Lorrie Soriano APRN ADMINISTRATIVE SPECIALIST-C Primary Care Provider Active Team Status: Active Member Role Status Dates Vesna Anaya MD Primary Care Provider Active S tart: August 20, 2024 Lorrie Soriano APRN ADMINISTRATIVE SPECIALIST-C Attending Provider Act salma Start: August 20, 2024 Team Status: Active Member Role Status Dates Vesna Anaya MD Primary Care Provider Active S tart: August 21, 2024 Lorrie Soriano APRN ADMINISTRATIVE SPECIALIST-C Attending Provider Act salma Start: August 21, 2024 Team Status: Inactive Member Role Status Dates Lorrie Soriano APRN ADMINISTRATIVE SPECIALIST-C Primary Care Provider, Attending Provider Active Start: August 24, 2024 End: August 24, 2024 Team Status: Active Member Role Status Dates Lorrie Soriano APRN ADMINISTRATIVE SPECIALIST-C Primary Care Provider Active Start: August 24, 2024 Laura Darby CMA Attending Provider Active Start: August 24, 2024 Team Status: Inactive Member Role Status Dates Lorrie Soriano APRN ADMINISTRATIVE SPECIALIST-C Primary Care Provider, Attending Provider Active Start: August 26, 2024 End: August 26, 2024 Team Status: Inactive Member Role Status Dates Lorrie Soriano APRN ADMINISTRATIVE SPECIALIST-C Primary Care Provider Active Start: January 05, 2025 End: January 05, 2025 Lorrie Soriano APRN ADMINISTRATIVE SPECIALIST-C Attending Provider Act salma Start: January 05, 2025 End: January 05, 2025 REASON FOR VISIT (unrecogniz ed section and [...] BE BASED ON THE PRIMARY CLINICAL RECORDS. [facility] Hospital[facility]. provides no warranty or guarantee of the accuracy or completeness of information in this document.
--- NOTE | 2025-01-08 10:44 | MM_ITS ---
Patient Name: ADRY CALDERON MR#: [id number] : 1980 Exam Date: 01/08/2025 Ordering Doctor: YANELIS WADDELL TRANSLATOR-C RADIOLOGY REPORT PROCEDURE: MM TOMOSYNTHESIS SCREENING BI COMPARISON: None. INDICATIONS: screening Calculator Name NCI Breast Cancer Risk Assessment Tool 5 Year Breast Cancer Risk 0.90% Lifetime Breast Cancer Risk 9.60% Personal Breast Cancer No Personal Ovarian Cancer No Treatments None Family Cancers Grandfather-paternal with colon cancer at age ~74. LOCATION: [facility] BREAST COMPOSITION: There are scattered areas of fibroglandular density. FINDINGS: DIAGNOSTIC CATEGORY 1--NEGATIVE. RIGHT BREAST: No significant suspicious finding. LEFT BREAST: No significant suspicious finding. RECOMMENDATIONS: ROUTINE MAMMOGRAM AND CLINICAL EVALUATION IN 12 MONTHS. Dictated by: Jasen Montemayor DO on 01/08/2025 at 15:40 Approved by: Jasen Montemayor DO on 01/08/2025 at 15:43
== END 2025-01-08 10:37 | disposition home or self-care (01) ==
LOC: MAMMO 10:38
PROVIDERS: PCP Nurse Practitioner Family; Visit Provider Nurse Practitioner Family
DX: Z12.31 Encounter for screening mammogram for malignant neoplasm of breast (principal); Z80.0 Family history of malignant neoplasm of digestive organs
CPT/HCPCS: 77063; 77067